=== PATIENT | female | born 1990 | race Caucasian/White ===

== ENCOUNTER 2016-04-20 01:41 | Emergency (ER) | payer BC, OTHER ==
[2016-04-20 02:22] VITALS: BP 104/66; PULSE 61; TEMP 97.3; BMI 22.8
--- NOTE | 2016-04-20 02:40 | PDOC ---
History of Present Illness <Price Carmichael - Last Filed: 04/20/16 02:41> - General History Source: Patient Exam Limitations: No Limitations - History of Present Illness Initial Comments: 04/20/16 02:44 The patient is a 25 year old female with significant past medical history of anemia, asthma, and anxiety (diagnosed 6 months ago) who presents to the ED with worsening anxiety attack prior to arrival. Patient reports having intermittent episodes of anxiety attacks for the past few weeks that worsen just prior to arrival. She states her anxiety attacks occur during meals that consist of chest tightness, SOB and dysphagia. Patient was prescribed diazepam 2mg by PMD and was instructed to take them as needed for her anxiety. She states she stop taking them 3 weeks after she was prescribed because she felt like they were not working. Patient denies any homicidal or suicidal ideation. Patient is currently be accompanied by a friend. The patient denies fever, chills, diaphoresis, and cough. The patient denies abdominal pain, nausea, vomiting, and diarrhea. Allergies: morphine Social History: Denies alcohol, tobacco, or drug use. Family History: serotonin syndrome Past Surgical History: PCP: None reported <Allison Noyola - Last Filed: 04/20/16 02:46> - General Chief Complaint: Psychiatric Stated Complaint: CHEST PAIN Time Seen by Provider: 04/20/16 01:53 Past History - Past Medical History Anemia: Yes Asthma: Yes Cancer: No Cardiac Disorders: No CVA: No COPD: No CHF: No Dementia: No Diabetes: No GI Disorders: No Disorders: No HTN: No Hypercholesterolemia: No Liver Disease: No Psychiatric Problems: Yes (anxeity/DEPRESSION) Suicide Attempt (Hx): No Seizures: No Thyroid Disease: No - Surgical History Abdominal Surgery: Yes (c- section) Appendectomy: No Cardiac Surgery: No Cholecystectomy: No Lung Surgery: No Neurologic Surgery: No Orthopedic Surgery: No - Reproductive History (#): 6 Para: 1 Cervical CA: No Dysfunctional Uterine Bleeding: No Ectopic : No Endometrial CA: No Polycystic Ovaries: No Therapeutic (s) & number: (3) Tubal Ligation: No Spontaneous : 2 - Immunization History Td Vaccination: No Immunization Up to Date: Yes - Psycho/Social/Smoking Cessation Hx Anxiety: Yes Suicidal Ideation: No Smoking Status: No Smoking History: Never smoked Years of Tobacco Use: 2 Have you smoked in the past 12 months: No Number of Cigarettes Smoked Daily: 10 If you are a former smoker, when did you quit?: 2016 Information on smoking cessation initiated: No 'Breaking Loose' booklet given: 01/09/16 Hx Alcohol Use: No Drug/Substance Use Hx: No Substance Use Type: None Hx Substance Use Treatment: No <Price Carmichael - Last Filed: 04/20/16 02:41> <Allison Noyola - Last Filed: 04/20/16 02:46> - Past Medical History Allergies/Adverse Reactions: Allergies Allergy/AdvReac Type Severity Reaction Status Date / Time morphine AdvReac Itching Verified 04/20/16 01:59 Home Medications: Ambulatory Orders Sertraline HCl 25 mg PO DAILY 01/12/16 Review of Systems - Review of Systems Able to Perform ROS?: Yes Comments:: 04/20/16 02:45 CONSTITUTIONAL: Absent: fever, no chills, no fatigue EYES: Absent: visual changes ENT: +dysphagia Absent: ear pain, no sore throat CARDIOVASCULAR: +chest tightness Absent: no palpitations RESPIRATORY: +SOB Absent: cough GI: Absent: abdominal pain, no nausea, no vomiting, no constipation, no diarrhea GENITOURINARY: Absent: dysuria, no frequency, no hematuria MUSKULOSKELETAL: Absent: back pain, no arthralgia, no myalgia SKIN: Absent: rash NEURO: Absent: headache PSYCHIATRIC: +anxiety Absent: depression, suicidal or homicidal ideation, hallucinations. <Allison Noyola - Last Filed: 04/20/16 02:46> *Physical Exam - Vital Signs Last Vital Signs Temp Pulse Resp BP Pulse Ox 97.3 F L 61 20 104/66 100 04/20/16 01:59 04/20/16 01:59 04/20/16 01:59 04/20/16 01:59 04/20/16 01:59 <Price Carmichael - Last Filed: 04/20/16 02:41> - Vital Signs Last Vital Signs Temp Pulse Resp BP Pulse Ox 97.3 F L 61 20 104/66 100 04/20/16 01:59 04/20/16 01:59 04/20/16 01:59 04/20/16 01:59 04/20/16 01:59 - Physical Exam Comments: 04/20/16 02:45 GENERAL: Well-appearing, well-nourished. Mild distress. Pt is tearful. HEENT: Normocephalic, atraumatic. PERRL, EOM intact. CARDIOVASCULAR: Normal S1, S2. Regular rate and rhythm. PULMONARY: Clear to auscultation bilaterally. ABDOMEN: Soft, non-distended, non-tender. EXTREMITIES: Normal ROM in all four extremities. No gross deformities. SKIN: Warm, dry. No rash NEUROLOGICAL: No focal neurological deficits. PSYCHIATRIC: Cooperative. Good eye contact. Appropriate mood and affect. <Allison Noyola - Last Filed: 04/20/16 02:46> Heart Score/ECG Review - ECG Impressions Comment:: 04/20/16 02:45 Sinus bradycardia @57bpm Incomplete RBBB Borderline ECG <Allison Noyola - Last Filed: 04/20/16 02:46> Medical Decision Making - Medical Decision Making 04/20/16 02:37 Dr. Carmichael: The scribe's documentation has been prepared under my direction and personally reviewed by me in its entirery. I confirm that the note above accurately reflects all work, treatment, procedures, and medical decision making performed by me. Patient requesting referral for a therapist for counselling. Pt denies homocidal or suicidal ideation. Currnetly accompanied by friend. Will refer pt to psych <Price Carmichael - Last Filed: 04/20/16 02:41> *DC/Admit/Observation/Transfer - Discharge Dispostion Admit: No <Price Carmichael - Last Filed: 04/20/16 02:41> - Attestations Scribe Attestion: 04/20/16 02:46 Documentation prepared by Allison Noyola, acting as chief medical physicist for Price Carmichael MD <Allison Noyola - Last Filed: 04/20/16 02:46> Diagnosis at time of Disposition: Anxiety attack - Discharge Dispostion Disposition: HOME Condition at time of disposition: Stable - Referrals Referrals: Puneet Alexandre MD [Staff Physician] - - Patient Instructions Printed Discharge Instructions: DI for Anxiety -- Adult Additional Instructions: Please follow up with the doctor you were referred to as soon as possible.
--- NOTE | 2016-04-20 14:58 | EKG ---
Test Reason : Blood Pressure : / mmHG Vent. Rate : 057 BPM Atrial Rate : 057 BPM P-R Int : 134 ms QRS Dur : 108 ms QT Int : 426 ms P-R-T Axes : 055 029 033 degrees QTc Int : 414 ms SINUS BRADYCARDIA INCOMPLETE RIGHT BUNDLE BRANCH BLOCK BORDERLINE ECG WHEN COMPARED WITH ECG OF 09-JAN-2016 15:15, NO SIGNIFICANT CHANGE WAS FOUND Confirmed by CHRIS VALVERDE MD ([id number]) on 04/20/2016 2:58:37 PM Referred By: Confirmed By:CHRIS VALVERDE MD
== END 2016-04-20 03:15 | disposition home or self-care (01) ==
LOC: JER 01:41
DX: F41.0 Panic disorder [episodic paroxysmal anxiety] (principal); J45.909 Unspecified asthma, uncomplicated
CPT/HCPCS: 93005; 93010; 99282-25

== ENCOUNTER → 2016-05-17 | Emergency (ER) | payer BC, OTHER ==
[2016-05-17 22:26] VITALS: BP 99/60; PULSE 69; TEMP 97.7; BMI 24.2
--- NOTE | 2016-05-17 23:17 | PDOC ---
History of Present Illness - History of Present Illness Initial Comments: 05/17/16 23:42 Patient is a 25 year old female (5 weeks) with no significant medical hx who is presenting to the ED with one day of constant suprapubic abdominal pain and vaginal spotting. The patient's abdominal pain is non-radiating and atrauamatic. The patient states her vaginal spotting came and resolved yesterday. Patient came to the ED tonight to make sure everything is okay with her . Denies any fever, chills, nausea, vomiting, or diarrhea. 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 <Anisha Maier - Last Filed: 05/18/16 01:36> <Mikael Foster - Last Filed: 05/18/16 01:42> - General Chief Complaint: Vaginal Bleeding Stated Complaint: VAGINAL BLEEDING/6 WKS Time Seen by Provider: 05/17/16 22:57 Past History <Anisha Maier - Last Filed: 05/18/16 01:36> - Past Medical History Anemia: Yes Asthma: Yes Cancer: No Cardiac Disorders: No CVA: No COPD: No CHF: No Dementia: No Diabetes: No GI Disorders: No Disorders: No HTN: No Hypercholesterolemia: No Liver Disease: No Psychiatric Problems: Yes (anxeity/DEPRESSION) Suicide Attempt (Hx): No Seizures: No Thyroid Disease: No - Surgical History Abdominal Surgery: Yes (c- section) Appendectomy: No Cardiac Surgery: No Cholecystectomy: No Lung Surgery: No Neurologic Surgery: No Orthopedic Surgery: No - Reproductive History (#): 6 Para: 1 Cervical CA: No Dysfunctional Uterine Bleeding: No Ectopic : No Endometrial CA: No Polycystic Ovaries: No Therapeutic (s) & number: (3) Tubal Ligation: No Spontaneous : 2 - Immunization History Td Vaccination: No Immunization Up to Date: Yes - Psycho/Social/Smoking Cessation Hx Anxiety: Yes Suicidal Ideation: No Smoking Status: No Smoking History: Never smoked Years of Tobacco Use: 2 Have you smoked in the past 12 months: No Number of Cigarettes Smoked Daily: 10 If you are a former smoker, when did you quit?: 2016 Information on smoking cessation initiated: No 'Breaking Loose' booklet given: 01/09/16 Hx Alcohol Use: No Drug/Substance Use Hx: No Substance Use Type: None Hx Substance Use Treatment: No <CristianMikael - Last Filed: 05/18/16 01:42> - Past Medical History Allergies/Adverse Reactions: Allergies Allergy/AdvReac Type Severity Reaction Status Date / Time morphine AdvReac Itching Verified 04/20/16 01:59 Home Medications: Ambulatory Orders Sertraline HCl 25 mg PO DAILY 01/12/16 Abd/GI Specific PMHX - Complaint Specific PMHX Colitis: No Diverticulitis: No Gall Bladder Disease: No GERD: No Hepatitis: No Irritable Bowel Synd (IBS): No Pancreatitis: No GI Ulcer Disease: No <Cristian,Mikael - Last Filed: 05/18/16 01:42> Review of Systems - Review of Systems Comments:: 05/17/16 23:42 CONSTITUTIONAL: No fever, no chills, no fatigue EYES: No visual changes ENT: No ear pain, no sore throat CARDIOVASCULAR: No chest pain, no palpitations RESPIRATORY: No cough, no SOB GI: Suprapubic tenderness. No nausea, no vomiting, no constipation, no diarrhea GENITOURINARY: Vaginal spotting. No dysuria, no frequency, no hematuria MUSKULOSKELETAL: No backpain, no joint pain, no myalgias SKIN: No rash NEURO: No headache <Anisha Maier - Last Filed: 05/18/16 01:36> *Physical Exam - Vital Signs Last Vital Signs Temp Pulse Resp BP Pulse Ox 97.7 F 69 18 99/60 100 05/17/16 22:22 05/17/16 22:22 05/17/16 22:22 05/17/16 22:22 05/17/16 22:22 - Physical Exam Comments: 05/17/16 23:43 CONSTITUTIONAL: Well-appearing; well-nourished; in no apparent distress HEAD: Normocephalic; atraumatic EYES: PERRL; EOM intact ENMT: External appears normal; normal oropharynx NECK: Supple; non-tender; no cervical lymphadenopathy CARD: Normal S1, S2; no murmurs, rubs, or gallops RESP: Normal chest excursion with respiration; breath sounds clear and equal bilaterally; no wheezes, rhonchi, or rales ABD: Soft, non-distended; mild suprapubic tenderness; no palpable organomegaly, no palpable hernias EXT: Normal ROM in all four extremities; non-tender to palpation; distal pulses intact SKIN: Warm, dry, no rash NEURO: No focal neurological deficiencies. <Anisha Maier - Last Filed: 05/18/16 01:36> - Vital Signs Last Vital Signs Temp Pulse Resp BP Pulse Ox 97.7 F 69 18 99/60 100 05/17/16 22:22 05/17/16 22:22 05/17/16 22:22 05/17/16 22:22 05/17/16 22:22 <Mikael Foster - Last Filed: 05/18/16 01:42> ED Treatment Course - LABORATORY CBC & Chemistry Diagram: 05/17/16 23:40 - RADIOLOGY Radiograph Interpretation: 05/18/16 01:01 Senior Staff Accountant: [email or web address]) Report Date: 05/18/2016 00:10:00 Report Status: Preliminary Begin of Report Content Referring Physician: Mikael Foster Patient Name: Halina Bailon THIS IS A PRELIMINARY REPORT FROM [facility] IMAGES: 43 EXAM DATE AND TIME: 2016-05-18 00:10:22.0 EXAM: ULTRASOUND PELVIS, COMPLETE AND TRANSVAGINAL ULTRASOUND AND DUPLEX SCAN PELVIS, COMPLETE No ovarian torsion. Color flow with appropriate arterial waveforms bilaterally. 1.7 cm complex corpus luteum right ovary. No free fluid. Small intrauterine probable gestational sac 5 weeks 3 days by measurement with yolk sac but no visible pole. No adnexal masses appreciated. Correlation with beta-hCG levels and followup ultrasound recommended to assess viability of suspected early . Unremarkable visualized portion of bladder. THIS DOCUMENT HAS BEEN ELECTRONICALLY SIGNED Samia Bailey M.D. 05/18/2016 00:58 RADHIKA Patel Please call Imaging Technical Administrative Assistant [phone] ([phone]) with questions. End of Report Content <Anisha Maier - Last Filed: 05/18/16 01:36> - LABORATORY CBC & Chemistry Diagram: 05/17/16 23:40 <Mikael Foster - Last Filed: 05/18/16 01:42> Medical Decision Making - Medical Decision Making 05/18/16 01:39 Patient is a 25-year-old female, 7 para 1, who presents with lower abdominal pain and vaginal spotting 24 hours previously that had resolved previously. In the ER, patient is awake and alert, afebrile, nontoxic appearing. Serial abdominal exams reveal minimal suprapubic tenderness only without guarding rebound. Patient tolerates by mouth. Beta-hCG is noted to be above 8000. Transvaginal ultrasound shows an IUP approximately 5 weeks 3 days gestation. Urinalysis reveals no evidence of pyuria. Patient is Rh+ and no rhogam is indicated at this time. Will discharge with CATERER HELPER follow-up. <Mikael Foster - Last Filed: 05/18/16 01:42> *DC/Admit/Observation/Transfer - Attestations Scribe Attestion: 05/17/16 23:43 Documentation prepared by Anisha Maier, acting as medical appliance maker for Mikael Foster MD. <Anisha Maier - Last Filed: 05/18/16 01:36> - Attestations Physician Attestion: 05/18/16 01:39 The documentation was prepared by the scribe under my direct supervision. I have reviewed the documentation which correctly represents the findings, medical decision-making and critical action taken by me. <Mikael Foster - Last Filed: 05/18/16 01:42> Diagnosis at time of Disposition: Threatened Abdominal pain Qualifiers: Abdominal location: lower abdomen, unspecified Qualified Code(s): R10.30 - Lower abdominal pain, unspecified - Discharge Dispostion Disposition: HOME Condition at time of disposition: Stable - Referrals Referrals: Kusum Moy MD [Primary Care Provider] - Trip Young MD [Staff Physician] - - Patient Instructions Printed Discharge Instructions: DI for Threatened
[2016-05-18 00:01] LABS: URINE APPEARANCE SLCLOUDY; URINE BILIRUBIN NEGATIVE (NEGATIVE); URINE BLOOD NEGATIVE (NEGATIVE); URINE COLOR LTYELLOW; URINE GLUCOSE (UA) NEGATIVE (NEGATIVE); URINE KETONE NEGATIVE (NEGATIVE); URINE LEUK ESTERASE NEGATIVE (NEGATIVE); URINE NITRITE NEGATIVE (NEGATIVE); URINE PROTEIN NEGATIVE (NEGATIVE); URINE UROBILINOGEN 2.0 E.U/dl E.U./dl (0.2-1.0)
[2016-05-18 00:13] LABS: BASOPHIL 0.6 % (0-2.0); EOSINOPHIL 6.5 % (0-4.5); MCH 29.5 pg (25.7-33.7); MCHC 34.1 g/dl (32.0-36.0); MEAN CELL VOLUME 86.6 fl (80-96); MEAN PLT VOLUME 9.5 fl (7.5-11.1); NEUTROPHILS 54.8 % (42.8-82.8); PLATELET COUNT 192 K/MM3 (134-434); RDW 12.8 % (11.6-15.6); WHITE BLOOD COUNT 7.6 K/mm3 (4.0-10.0)
== END | disposition home or self-care (01) ==
LOC: JER 22:10 → SUPCPDRO 22:10
DX: O26.891 Other specified pregnancy related conditions, first trimester (principal); O20.0 Threatened abortion; Z3A.01 Less than 8 weeks gestation of pregnancy; J45.909 Unspecified asthma, uncomplicated; F41.8 Other specified anxiety disorders; D64.9 Anemia, unspecified; Z87.891 Personal history of nicotine dependence
CPT/HCPCS: 36415; 76817-TC; 81003; 84702; 84703; 85025; 86850; 86900; 86901; 87086; 99281-25

== ENCOUNTER 2016-06-14 17:31 | Emergency (ER) | payer BC, OTHER ==
[2016-06-14 17:39] VITALS: BP 113/57; PULSE 62; TEMP 98.1; BMI 24.2
[2016-06-14] MEDS ORDERED: SODIUM CHLORIDE 1,000 ML IV STA (18:32)
--- NOTE | 2016-06-14 18:44 | PDOC ---
History of Present Illness - General History Source: Patient, Old Records Exam Limitations: No Limitations - History of Present Illness Initial Comments: 06/14/16 19:17 The patient is a 25 year old female who is currently 2 months , [id number], with a significant past medical history of anemia, ovarian cysts, asthma, anxiety and depression, who presents to the emergency department with vaginal bleeding, nausea and vomit onset today. She has not taken vitamins because they make her nauseous. She states that she has only had a couple of episodes of vomit that were nonbilious and nonbloody. The patient was in the ED on 05/17/2016 for vaginal spotting and abdominal cramping. An ultrasound was performed which showed; Small intrauterine probable gestational sac 5 weeks 3 days by measurement with yolk sac but no visible pole. No adnexal masses appreciated. She was discharged same day and referred to follow up with a MEDICAL MANAGER. The patient denies chest pain, shortness of breath, headache and dizziness. Denies fever, chills, diarrhea and constipation. Denies dysuria, frequency, urgency and hematuria. LMP: 04/12/2016 (not regular) Allergies: Morphine Past surgical history: Social history: No alcohol, tobacco or drug use reported PMD - Dr. Seth Moy MEDICAL MANAGER - Dr. Young <Price Pittman - Last Filed: 06/14/16 20:54> - General History Source: Patient Exam Limitations: No Limitations <Vimal Marlow - Last Filed: 06/14/16 21:31> - General Chief Complaint: Vaginal Sxs Stated Complaint: VAGINAL BLEEDING Time Seen by Provider: 06/14/16 18:18 Past History <Price Pittman - Last Filed: 06/14/16 20:54> - Past Medical History Anemia: Yes Asthma: Yes Cancer: No Cardiac Disorders: No CVA: No COPD: No CHF: No Dementia: No Diabetes: No GI Disorders: No Disorders: No HTN: No Hypercholesterolemia: No Liver Disease: No Psychiatric Problems: Yes (anxeity/DEPRESSION) Suicide Attempt (Hx): No Seizures: No Thyroid Disease: No - Surgical History Abdominal Surgery: Yes (c- section) Appendectomy: No Cardiac Surgery: No Cholecystectomy: No Lung Surgery: No Neurologic Surgery: No Orthopedic Surgery: No - Reproductive History Is Patient Now?: Yes (#): 6 Para: 1 Cervical CA: No Dysfunctional Uterine Bleeding: No Ectopic : No Endometrial CA: No Polycystic Ovaries: No Therapeutic (s) & number: Yes (2) Tubal Ligation: No Spontaneous : 2 - Immunization History Td Vaccination: No Immunization Up to Date: Yes - Psycho/Social/Smoking Cessation Hx Anxiety: Yes Suicidal Ideation: No Smoking Status: No Smoking History: Never smoked Years of Tobacco Use: 2 Have you smoked in the past 12 months: No Number of Cigarettes Smoked Daily: 10 If you are a former smoker, when did you quit?: 2016 Information on smoking cessation initiated: No 'Breaking Loose' booklet given: 01/09/16 Hx Alcohol Use: No Drug/Substance Use Hx: No Substance Use Type: None Hx Substance Use Treatment: No <Vimal Marlow - Last Filed: 06/14/16 21:31> - Past Medical History Allergies/Adverse Reactions: Allergies Allergy/AdvReac Type Severity Reaction Status Date / Time morphine AdvReac Itching Verified 06/14/16 17:38 Home Medications: Ambulatory Orders NK [No Known Home Medication] 06/14/16 Review of Systems - Review of Systems Able to Perform ROS?: Yes Comments:: 06/14/16 19:17 GENERAL/CONSTITUTIONAL: No fever or chills. No weakness. HEAD, EYES, EARS, NOSE AND THROAT: No change in vision. No ear pain or discharge. No sore throat. CARDIOVASCULAR: No chest pain or shortness of breath RESPIRATORY: No cough, wheezing, or hemoptysis. GASTROINTESTINAL: +Nausea and vomiting. No diarrhea or constipation. GENITOURINARY: +Vaginal bleeding. No dysuria, frequency, or change in urination. MUSCULOSKELETAL: No joint or muscle swelling or pain. No neck or back pain. SKIN: No rash NEUROLOGIC: No headache, vertigo, loss of consciousness, or change in strength/ sensation. ENDOCRINE: No increased thirst. No abnormal weight change HEMATOLOGIC/LYMPHATIC: No anemia, easy bleeding, or history of blood clots. ALLERGIC/IMMUNOLOGIC: No hives or skin allergy. <Price Pittman - Last Filed: 06/14/16 20:54> *Physical Exam - Vital Signs Last Vital Signs Temp Pulse Resp BP Pulse Ox 98.1 F 62 19 113/57 100 06/14/16 17:37 06/14/16 17:37 06/14/16 17:37 06/14/16 17:37 06/14/16 17:37 - Physical Exam Comments: 06/14/16 19:17 GENERAL: Awake, alert, and fully oriented, in no acute distress HEAD: No signs of trauma, normocephalic, atraumatic EYES: PERRLA, EOMI, sclera anicteric, conjunctiva clear ENT: Auricles normal inspection, hearing grossly normal, nares patent, oropharynx clear without exudates. Moist mucosa NECK: Normal ROM, supple, no lymphadenopathy, JVD, or masses LUNGS: No distress, speaks full sentences, clear to auscultation bilaterally HEART: Regular rate and rhythm, normal S1 and S2, no murmurs, rubs or gallops, peripheral pulses normal and equal bilaterally. ABDOMEN: +Suprapubic tenderness. Soft, normoactive bowel sounds. No guarding, no rebound. No masses EXTREMITIES: Normal inspection, Normal range of motion, no edema. No clubbing or cyanosis. NEUROLOGICAL: Cranial nerves II through XII grossly intact. Normal speech, normal gait, no focal sensorimotor deficits SKIN: Warm, Dry, normal turgor, no rashes or lesions noted. <Price Pittman - Last Filed: 06/14/16 20:54> - Vital Signs Last Vital Signs Temp Pulse Resp BP Pulse Ox 98.1 F 62 19 113/57 100 06/14/16 17:37 06/14/16 17:37 06/14/16 17:37 06/14/16 17:37 06/14/16 17:37 <Vimal Marlow - Last Filed: 06/14/16 21:31> ED Treatment Course - LABORATORY CBC & Chemistry Diagram: 06/14/16 18:45 - ADDITIONAL ORDERS Additional order review: 06/14/16 18:45 RBC 4.03 MCV 84.4 MCHC 35.3 RDW 12.3 MPV 9.2 Neutrophils % 58.0 Lymphocytes % 23.9 D Monocytes % 9.6 Eosinophils % 8.1 H Basophils % 0.4 - RADIOLOGY Radiograph Interpretation: 06/14/16 20:54 Abdominal ultrasound Reviewed by: Dr. Nikunj Patel Impression: Single live intrauterine gestation with crown rump length corresponding to 9 weeks and 2 days gestation commensurate with given LMP. <Price Pittman - Last Filed: 06/14/16 20:54> - LABORATORY CBC & Chemistry Diagram: 06/14/16 18:45 - RADIOLOGY Radiology Studies Ordered: Category Date Time Status TRANSVAGINAL US PREG [US] Stat Ultrasound 06/14/16 18:33 Ordered <EleVimal - Last Filed: 06/14/16 21:31> Medical Decision Making - Medical Decision Making 06/14/16 18:44 A portion of this note was documented by scribe services under my direction. I have reviewed the details of the note, within reason, and agree with the documentation with the following case summary and management plan written by me. Patient treated in the ED. Nursing notes are reviewed and incorporated into the medical decision-making. Vital signs reviewed. Peripheral IV access obtained by the nurse, laboratory studies are drawn and sent, reviewed and interpreted by myself. Vital Signs Temp Pulse Resp BP Pulse Ox 98.1 F 62 19 113/57 100 06/14/16 17:37 06/14/16 17:37 06/14/16 17:37 06/14/16 17:37 06/14/16 17:37 45-year-old female no medical history, , last menstrual period April 10, approximately 8 weeks presents with vaginal spotting today. She reports some suprapubic cramping with vaginal spotting but denies any blood clots. Reports some nausea but denies vomiting. Patient came in for evaluation. She has not had a prior ultrasound. We'll rule out first trimester vaginal bleeding. Rule out ectopic versus threatened miscarriage. We'll obtain labs, transvaginal ultrasound, type and screen, beta hCG. Patient defer on oral meds and requests no medications at this time. 06/14/16 21:05 CBC, BMP 06/14/16 18:45 CMP Beta HCG, Quant 657293.9 mIU/ml 06/14/16 18:45 Urine Test Results Urine Color Ltyellow 06/14/16 18:45 Urine Appearance Clear 06/14/16 18:45 Urine pH 6.0 (5.0-8.0) 06/14/16 18:45 Ur Specific [place] 1.021 (1.001-1.035) 06/14/16 18:45 Urine Protein Negative (NEGATIVE) 06/14/16 18:45 Urine Glucose (UA) Negative (NEGATIVE) 06/14/16 18:45 Urine Ketones Negative (NEGATIVE) 06/14/16 18:45 Urine Blood 1+ (NEGATIVE) H 06/14/16 18:45 Urine Nitrite Negative (NEGATIVE) 06/14/16 18:45 Urine Bilirubin Negative (NEGATIVE) 06/14/16 18:45 Ur Leukocyte Esterase Negative (NEGATIVE) 06/14/16 18:45 Urine RBC 5 /hpf (0-3) 06/14/16 18:45 Urine WBC 1 /hpf (3-5) 06/14/16 18:45 Ur Epithelial Cells Rare /hpf (FEW) 06/14/16 18:45 Urine Mucus Rare 06/14/16 18:45 Transvaginal ultrasound shows single IUP with 9 weeks and 2 days with FHR is 188 bpm. 06/14/16 21:25 Blood Type, Rh (Baby) Blood Type A POSITIVE 06/14/16 18:45 Pelvic rest precautions. Threatened . I discussed the physical exam findings, ancillary test results and final diagnoses with the patient. I answered all of the patient's questions. The patient was satisfied with the care received and felt comfortable with the discharge plan and treatment plan. The patient will call their primary care physician within 24 hours to arrange follow-up and will return to the Emergency Department with any new, persistant or worsening symptoms. <Vimal Marlow - Last Filed: 06/14/16 21:31> *DC/Admit/Observation/Transfer - Attestations Scribe Attestion: 06/14/16 19:18 Documentation prepared by Price Pittman, acting as general medical practitioner for Vimal Marlow MD <Price Pittman - Last Filed: 06/14/16 20:54> - Discharge Dispostion Admit: No <Vimal Marlow - Last Filed: 06/14/16 21:31> Diagnosis at time of Disposition: Threatened - Discharge Dispostion Disposition: HOME Condition at time of disposition: Stable - Referrals Referrals: Kusum Moy MD [Primary Care Provider] - - Patient Instructions Printed Discharge Instructions: DI for Threatened Additional Instructions: Please follow up with your appointment scheduler doctor. If you have uncontrollable bleeding, please return to the ER for further evaluatin.
[2016-06-14 19:08] LABS: BASOPHIL 0.4 % (0-2.0); EOSINOPHIL 8.1 % (0-4.5); MCH 29.8 pg (25.7-33.7); MCHC 35.3 g/dl (32.0-36.0); MEAN CELL VOLUME 84.4 fl (80-96); MEAN PLT VOLUME 9.2 fl (7.5-11.1); PLATELET COUNT 191 K/MM3 (134-434); RDW 12.3 % (11.6-15.6); WHITE BLOOD COUNT 6.1 K/mm3 (4.0-10.0)
[2016-06-14 19:15] LABS: URINE APPEARANCE CLEAR; URINE BILIRUBIN NEGATIVE (NEGATIVE); URINE COLOR LTYELLOW; URINE GLUCOSE (UA) NEGATIVE (NEGATIVE); URINE KETONE NEGATIVE (NEGATIVE); URINE LEUK ESTERASE NEGATIVE (NEGATIVE); URINE NITRITE NEGATIVE (NEGATIVE); URINE PROTEIN NEGATIVE (NEGATIVE); URINE UROBILINOGEN NEGATIVE E.U./dl (0.2-1.0)
[2016-06-14 19:18] LABS: URINE BLOOD 1+ (NEGATIVE)
[2016-06-14 19:19] LABS: URINE MUCUS RARE; URINE RBC 5 /hpf (0-3); URINE WBC 1 /hpf (3-5)
== END 2016-06-14 21:38 | disposition home or self-care (01) ==
LOC: JER 17:31
PROC: 3E0337Z Introduction of Electrolytic and Water Balance Substance into Peripheral Vein, Percutaneous Approach (ICD-10-PCS; principal; 2016-06-14)
DX: O20.0 Threatened abortion (principal); Z3A.09 9 weeks gestation of pregnancy
CPT/HCPCS: 36415; 76801-TC; 81003; 81015; 84702; 85025; 86850; 86900; 86901; 87086; 99282-25

== ENCOUNTER 2016-07-10 12:00 | Emergency (ER) | payer BC, OTHER ==
[2016-07-10 12:10] VITALS: BP 110/67; PULSE 71; TEMP 97.9; BMI 25.4
--- NOTE | 2016-07-10 14:41 | PDOC ---
History of Present Illness - History of Present Illness Initial Comments: 07/10/16 14:48 Patient is a 26 year old female (13 weeks) with significant medical hx of anemia, asthma and anxiety who is presenting to the ED with onset of chest pain and abdominal pain since today. Patient reports she was sitting in class when she had a sudden onset of chest pain with some mild shortness of breath. She also began having epigastric pain. The patient notes that her pain is similar to gas pain shes had in the past but states that her pain was so severe it was uncomfortable for her to sit in class. The patient also endorses some left calf cramping. Denies any fevers, chills, nausea, vomiting, taking oral contraceptives, or hx of blood clots. <Anisha Maier - Last Filed: 07/10/16 14:47> - General History Source: Patient Exam Limitations: No Limitations - History of Present Illness Timing/Duration: unsure <Kanwal Steve - Last Filed: 07/10/16 14:56> - General Chief Complaint: Pain Stated Complaint: CHEST PAIN, 13 WKS Past History <Anisha Maier - Last Filed: 07/10/16 14:47> - Past Medical History Anemia: Yes Asthma: Yes Cancer: No Cardiac Disorders: No CVA: No COPD: No CHF: No Dementia: No Diabetes: No GI Disorders: No Disorders: No HTN: No Hypercholesterolemia: No Liver Disease: No Psychiatric Problems: Yes (anxeity/DEPRESSION) Suicide Attempt (Hx): No Seizures: No Thyroid Disease: No - Surgical History Abdominal Surgery: Yes (c- section) Appendectomy: No Cardiac Surgery: No Cholecystectomy: No Lung Surgery: No Neurologic Surgery: No Orthopedic Surgery: No - Reproductive History (#): 6 Para: 1 Cervical CA: No Dysfunctional Uterine Bleeding: No Ectopic : No Endometrial CA: No Polycystic Ovaries: No Therapeutic (s) & number: Yes (2) Tubal Ligation: No Spontaneous : 2 - Immunization History Td Vaccination: No Immunization Up to Date: Yes - Psycho/Social/Smoking Cessation Hx Anxiety: Yes Suicidal Ideation: No Smoking Status: No Smoking History: Never smoked Years of Tobacco Use: 2 Have you smoked in the past 12 months: No Number of Cigarettes Smoked Daily: 10 If you are a former smoker, when did you quit?: 2016 'Breaking Loose' booklet given: 01/09/16 Hx Alcohol Use: No Drug/Substance Use Hx: No Substance Use Type: None Hx Substance Use Treatment: No <Kanwal Steve - Last Filed: 07/10/16 14:56> - Past Medical History Allergies/Adverse Reactions: Allergies Allergy/AdvReac Type Severity Reaction Status Date / Time morphine AdvReac Itching Verified 07/10/16 12:10 Home Medications: Ambulatory Orders NK [No Known Home Medication] 06/14/16 Review of Systems - Review of Systems Comments:: 07/10/16 14:48 GENERAL/CONSTITUTIONAL: No fever or chills. No weakness. HEAD, EYES, EARS, NOSE AND THROAT: No change in vision. No ear pain or discharge. No sore throat. CARDIOVASCULAR: Chest pain with mild shortness of breath. RESPIRATORY: No cough, wheezing, or hemoptysis. GASTROINTESTINAL: Epigastric pain. No nausea, vomiting, diarrhea or constipation. GENITOURINARY: No dysuria, frequency, or change in urination. MUSCULOSKELETAL: Left calf cramping. No joint or muscle swelling. No neck or back pain. ENDOCRINE: No increased thirst. No abnormal weight change. SKIN: No rash NEUROLOGIC: No headache, vertigo, loss of consciousness, or change in strength/ sensation. <Anisha Maier - Last Filed: 07/10/16 14:47> *Physical Exam - Vital Signs Last Vital Signs Temp Pulse Resp BP Pulse Ox 97.9 F 71 18 110/67 99 07/10/16 12:08 07/10/16 12:08 07/10/16 12:08 07/10/16 12:08 07/10/16 12:08 - Physical Exam Comments: 07/10/16 14:49 GENERAL: Awake, alert, and fully oriented, in no acute distress HEAD: No signs of trauma EYES: PERRLA, EOMI, sclera anicteric, conjunctiva clear ENT: Auricles normal inspection, hearing grossly normal, nares patent, oropharynx clear without exudates. Moist mucosa NECK: Normal ROM, supple, no lymphadenopathy, JVD, or masses LUNGS: Breath sounds equal, clear to auscultation bilaterally. No wheezes, and no crackles HEART: Chest wall tenderness. Regular rate and rhythm, normal S1 and S2, no murmurs, rubs or gallops ABDOMEN: Soft, nontender, normoactive bowel sounds. No guarding, no rebound. No masses EXTREMITIES: Normal range of motion, no edema. No clubbing or cyanosis. No cords, erythema, or tenderness NEUROLOGICAL: Cranial nerves II through XII grossly intact. Normal speech, normal gait SKIN: Warm, Dry, normal turgor, no rashes or lesions noted. HEMATOLOGIC/LYMPHATIC: No anemia, easy bleeding, or history of blood clots. ALLERGIC/IMMUNOLOGIC: No hives or skin allergy. <Anisha Maier - Last Filed: 07/10/16 14:47> - Vital Signs Last Vital Signs Temp Pulse Resp BP Pulse Ox 97.9 F 71 18 110/67 99 07/10/16 12:08 07/10/16 12:08 07/10/16 12:08 07/10/16 12:08 07/10/16 12:08 <Kanwal Steve - Last Filed: 07/10/16 14:56> Heart Score/ECG Review - ECG Intrepretation Rhythm: Regular Rhythm Comment:: 07/10/16 14:55 rate 62 bpm, TWi v2, V3 - [place]: Normal - ST and T Flattened T Waves: No Prolonged Q-T Interval: No - ECG Impressions Normal ECG: Yes <Kanwal Steve - Last Filed: 07/10/16 14:56> Medical Decision Making - Medical Decision Making 07/10/16 14:37 26 yo F currently at 13 weeks here with c/o epigastric pain . feels burning , into chest. mild sob. no leg swelling. no h/o dvt or pe. no f/c pt currently eating crackers and feels mildly improved. no urinary complaints. no vaginal bleeding no loss of fluid. no other complaints. on exam awake alert, lungs clear. chest wall ttp, reproducible. heart RRR no m/r /g abd soft nt nd. ext no edema. dDgx: GERD, gastritis, sxs of . PE less likley. plan us lower exst, transabdominal us. labs. 07/10/16 14:42 pt states she can't wait to have blood work drawn or ultrasound, felix come back later has to leave. <Kanwal Steve - Last Filed: 07/10/16 14:56> *DC/Admit/Observation/Transfer - Attestations Scribe Attestion: 07/10/16 14:52 Documentation prepared by Anisha Maier, acting as senior medical director for Kanwal Steve MD. <Anisha Maier - Last Filed: 07/10/16 14:47> - Discharge Dispostion Admit: No <Kanwal Steve - Last Filed: 07/10/16 14:56> Diagnosis at time of Disposition: Chest pain - Discharge Dispostion Disposition: HOME - Patient Instructions Printed Discharge Instructions: Medications and Additional Instructions: you should return for persistant instructions. folow up with your obsteterician.
[2016-07-10 15:12] LABS: URINE APPEARANCE SLCLOUDY; URINE BILIRUBIN NEGATIVE (NEGATIVE); URINE BLOOD NEGATIVE (NEGATIVE); URINE COLOR LTYELLOW; URINE GLUCOSE (UA) NEGATIVE (NEGATIVE); URINE KETONE NEGATIVE (NEGATIVE); URINE LEUK ESTERASE NEGATIVE (NEGATIVE); URINE NITRITE NEGATIVE (NEGATIVE); URINE PROTEIN NEGATIVE (NEGATIVE); URINE UROBILINOGEN NEGATIVE E.U./dl (0.2-1.0)
--- NOTE | 2016-07-11 17:13 | EKG ---
Test Reason : Blood Pressure : / mmHG Vent. Rate : 062 BPM Atrial Rate : 062 BPM P-R Int : 114 ms QRS Dur : 092 ms QT Int : 412 ms P-R-T Axes : 054 046 003 degrees QTc Int : 418 ms NORMAL SINUS RHYTHM ABNORMAL ECG WHEN COMPARED WITH ECG OF 20-APR-2016 02:04, NO SIGNIFICANT CHANGE WAS FOUND Confirmed by JENNA CARY MD ([id number]) on 07/11/2016 5:13:41 PM Referred By: Confirmed By:JENNA CARY MD
== END 2016-07-10 14:58 | disposition home or self-care (01) ==
LOC: JER 12:00
DX: O99.89 Other specified diseases and conditions complicating pregnancy, childbirth and the puerperium (principal); R07.89 Other chest pain; F41.8 Other specified anxiety disorders; D64.9 Anemia, unspecified; J45.909 Unspecified asthma, uncomplicated; Z3A.13 13 weeks gestation of pregnancy
CPT/HCPCS: 81003; 93005; 93010; 99282-25

== ENCOUNTER 2016-07-31 18:35 | Emergency (ER) | payer BC, OTHER ==
[2016-07-31 18:42] VITALS: BP 111/66; PULSE 60; TEMP 97.9; BMI 22.2
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
[2016-07-31 19:04] LABS: URINE APPEARANCE CLEAR; URINE BILIRUBIN NEGATIVE (NEGATIVE); URINE BLOOD NEGATIVE (NEGATIVE); URINE COLOR STRAW; URINE GLUCOSE (UA) NEGATIVE (NEGATIVE); URINE KETONE NEGATIVE (NEGATIVE); URINE LEUK ESTERASE NEGATIVE (NEGATIVE); URINE NITRITE NEGATIVE (NEGATIVE); URINE PROTEIN NEGATIVE (NEGATIVE); URINE UROBILINOGEN NEGATIVE E.U./dl (0.2-1.0)
[2016-07-31] MEDS ORDERED: ACETAMINOPHEN 325 MG TABLET (FP) PO ONE (19:54)
[2016-07-31] MEDS ORDERED: ACETAMINOPHEN 325 MG TABLET (FP) ONE (20:01)
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
== END 2016-07-31 23:05 | disposition home or self-care (01) ==
LOC: JER 18:35
DX: O99.89 Other specified diseases and conditions complicating pregnancy, childbirth and the puerperium (principal); M54.5 Low back pain; R10.30 Lower abdominal pain, unspecified; K64.4 Residual hemorrhoidal skin tags; Z3A.16 16 weeks gestation of pregnancy; V43.62XA Car passenger injured in collision with other type car in traffic accident, initial encounter; Y92.414 Local residential or business street as the place of occurrence of the external cause; Y93.89 Activity, other specified
CPT/HCPCS: 76816-TC; 81003; 82272; 99281-25

== ENCOUNTER 2016-12-04 14:54 | Emergency (ER) | payer BC, OTHER ==
[2016-12-04 15:10] VITALS: BP 100/67; PULSE 79; TEMP 98.2; BMI 25.7
--- NOTE | 2016-12-04 15:42 | PDOC ---
History of Present Illness - General Chief Complaint: Toothache Stated Complaint: TOOTHACHE (34 WKS ) Time Seen by Provider: 12/04/16 15:20 History Source: Patient - History of Present Illness Timing/Duration: other (yesterday) Past History - Past Medical History Allergies/Adverse Reactions: Allergies Allergy/AdvReac Type Severity Reaction Status Date / Time morphine AdvReac Itching Verified 12/04/16 15:11 Home Medications: Ambulatory Orders NK [No Known Home Medication] 06/14/16 Anemia: Yes Asthma: Yes Cancer: No Cardiac Disorders: No CVA: No COPD: No CHF: No Dementia: No Diabetes: No GI Disorders: No Disorders: No HTN: No Hypercholesterolemia: No Liver Disease: No Psychiatric Problems: Yes (anxeity) Seizures: No Thyroid Disease: No - Surgical History Abdominal Surgery: Yes (c- section) Appendectomy: No Cardiac Surgery: No Cholecystectomy: No Lung Surgery: No Neurologic Surgery: No Orthopedic Surgery: No - Reproductive History (#): 6 Para: 1 Cervical CA: No Dysfunctional Uterine Bleeding: No Ectopic : No Endometrial CA: No Polycystic Ovaries: No Therapeutic (s) & number: Yes (2) Tubal Ligation: No Spontaneous : 2 - Immunization History Td Vaccination: No Immunization Up to Date: Yes - Suicide/Smoking/Psychosocial Hx Smoking Status: No Smoking History: Never smoked Years of Tobacco Use: 2 Have you smoked in the past 12 months: No Number of Cigarettes Smoked Daily: 10 If you are a former smoker, when did you quit?: 2016 Information on smoking cessation initiated: No 'Breaking Loose' booklet given: 01/09/16 Hx Alcohol Use: No Drug/Substance Use Hx: No Substance Use Type: None Hx Substance Use Treatment: No Review of Systems - Review of Systems Constitutional: No: Chills, Fever HEENTM: Yes: Mouth Pain *Physical Exam - Vital Signs Last Vital Signs Temp Pulse Resp BP Pulse Ox 98.2 F 79 18 100/67 100 12/04/16 15:07 12/04/16 15:07 12/04/16 15:07 12/04/16 15:07 12/04/16 15:07 - Physical Exam General Appearance: Yes: Appropriately Dressed, Moderate Distress HEENT: positive: Normal Voice, TMs Normal, Other (no erythema, swelling or ttp to L upper 3rd molar, no facial swelling) Neck: positive: Supple. negative: Lymphadenopathy (R), Lymphadenopathy (L) Respiratory/Chest: negative: Respiratory Distress Integumentary: positive: Dry, Warm Neurologic: positive: Fully Oriented, Alert, Normal Mood/Affect Medical Decision Making - Medical Decision Making 12/04/16 15:40 26 yo F, 34 week w/ no issues w/ so far, here dental pain to left upper wisdom tooth that started yesterday. Denies any trauma. Last seen by dentist was ~6 months ago and dx w/ "gingivitis" 2/2 per pt. Was told to f/u in another 6 months. No facial pain, swelling, fever or chills. See exam Dental pain in 3rd trimester Stable w/ no e/o infection or abscess on exam -will discuss choice of pain control with ED attg until pt can see her dentist tomorrow -will hold off on abx for now 12/04/16 15:52 As per discussion with main ED attg, Dr De Leon, bupivacaine at this stage of should be relatively safe. Dental block performed administering 2-3 mL of bupivacaine to dental groove of L upper wisdom tooth. Will reassess 12/04/16 16:04 Pt reports feeling significantly better at this time. Will dc to f/u with dental in the am *DC/Admit/Observation/Transfer Diagnosis at time of Disposition: Pain, dental - Discharge Dispostion Disposition: HOME Condition at time of disposition: Improved - Referrals Referrals: Juan Moy MD [Primary Care Provider] - - Patient Instructions Printed Discharge Instructions: DI for Dental Pain Additional Instructions: Please follow up with your dentist tomorrow for further evaluation - Post Discharge Activity
== END 2016-12-04 16:19 | disposition home or self-care (01) ==
LOC: JERFT 14:54 → SUPCPDRO 14:54 → JERFT 16:19
DX: K08.89 Other specified disorders of teeth and supporting structures (principal); O26.893 Other specified pregnancy related conditions, third trimester; Z3A.34 34 weeks gestation of pregnancy; F41.9 Anxiety disorder, unspecified; J45.909 Unspecified asthma, uncomplicated
CPT/HCPCS: 99281-25

== ENCOUNTER 2017-01-14 07:15 | Inpatient (IN) | payer OTHER ==
--- NOTE | 2017-01-14 07:45 | PDOC ---
History of Present Illness - History of Present Illness Initial Comments: 01/14/17 07:52 The patient is a 26 year old female, , with no significant past medical history, who presents to the emergency department with increased cough with new onset of hemoptysis, chills, and pleuritic mid to upper back pain s/p on 01/08/17. The patient reports having a cough for about a month, and diagnosed with pneumonia when she was in the hospital. She reports being started on Augmentin on 01/11/[address] Vanessa. She states that after her a week ago she observed her sputum transition from green to yellow with specks of blood. She reports pleuritic pain to her mid to upper back, exacerbated by coughing. She reports the pain in her back is predominantly to the left side. She also reports having chills. She denies chest pain, shortness of breath, headache and dizziness. She denies fever, nausea, vomit, diarrhea and constipation. She denies dysuria, frequency, urgency and hematuria. Allergies: morphine Past surgical history: x2 Social history: Pt denies toxic habits PCP - Dr. Ada Moy Field Crew Chief - Dr. Vanessa <Maggi Rodriguez - Last Filed: 01/14/17 10:17> - General History Source: Patient, Family Exam Limitations: No Limitations <Vimal Marlow - Last Filed: 01/14/17 10:38> - General Chief Complaint: Respiratory Stated Complaint: PAIN Time Seen by Provider: 01/14/17 07:27 Past History <Maggi Rodriguez - Last Filed: 01/14/17 10:17> - Past Medical History Anemia: Yes Asthma: No Cancer: No Cardiac Disorders: No CVA: No COPD: No CHF: No Dementia: No Diabetes: No GI Disorders: No Disorders: No HTN: No Hypercholesterolemia: No Liver Disease: No Psychiatric Problems: Yes (anxeity) Seizures: No Thyroid Disease: No - Surgical History Abdominal Surgery: No Appendectomy: No Cardiac Surgery: No Cholecystectomy: No Lung Surgery: No Neurologic Surgery: No Orthopedic Surgery: No - Reproductive History (#): 6 Para: 1 Cervical CA: No Dysfunctional Uterine Bleeding: No Ectopic : No Endometrial CA: No Polycystic Ovaries: No Therapeutic (s) & number: Yes (2) Tubal Ligation: No Spontaneous : 2 - Immunization History Td Vaccination: No Immunization Up to Date: Yes - Suicide/Smoking/Psychosocial Hx Smoking Status: No Smoking History: Never smoked Years of Tobacco Use: 2 Have you smoked in the past 12 months: No Number of Cigarettes Smoked Daily: 10 If you are a former smoker, when did you quit?: 2016 'Breaking Loose' booklet given: 01/09/16 Hx Alcohol Use: No Drug/Substance Use Hx: No Substance Use Type: None Hx Substance Use Treatment: No <Vimal Marlow - Last Filed: 01/14/17 10:38> - Past Medical History Allergies/Adverse Reactions: Allergies Allergy/AdvReac Type Severity Reaction Status Date / Time morphine AdvReac Hives Verified 01/14/17 07:21 Home Medications: Ambulatory Orders Albuterol Sulfate Inhaler - [Ventolin HFA Inhaler -] 1 puff IH Q4H PRN #1 inhaler 01/11/17 Amox-Tr/K Cl [Augmentin - 500Mg Tablet] 1 tab PO BID #10 tab 01/11/17 Ibuprofen [Motrin -] 600 mg PO QID #28 tablet 01/12/17 Oxycodone HCl/Acetaminophen [Percocet 5-325 mg Tablet] 1 tab PO Q6H #20 tablet MDD 4 01/12/17 Review of Systems - Review of Systems Able to Perform ROS?: Yes Comments:: 01/14/17 07:53 GENERAL/CONSTITUTIONAL: (+) chills. No fever. No weakness. HEAD, EYES, EARS, NOSE AND THROAT: No change in vision. No ear pain or discharge. No sore throat. CARDIOVASCULAR: No chest pain or shortness of breath. RESPIRATORY: (+)cough, hemoptysis, pleuritic left back pain. No wheezing, GASTROINTESTINAL: No nausea, vomiting, diarrhea or constipation. GENITOURINARY: No dysuria, frequency, or change in urination. MUSCULOSKELETAL: (+) left mid to upper back pain. No joint pain or swelling. No muscle swelling. No neck. SKIN: No rash NEUROLOGIC: No headache, vertigo, loss of consciousness, or change in strength/ sensation. ENDOCRINE: No increased thirst. No abnormal weight change. HEMATOLOGIC/LYMPHATIC: No anemia, easy bleeding, or history of blood clots. ALLERGIC/IMMUNOLOGIC: No hives or skin allergy. <Maggi Rodriguez - Last Filed: 01/14/17 10:17> *Physical Exam - Vital Signs Last Vital Signs Temp Pulse Resp BP Pulse Ox 97.6 F 57 L 20 148/67 98 01/14/17 07:16 01/14/17 07:16 01/14/17 07:16 01/14/17 07:16 01/14/17 07:16 - Physical Exam Comments: 01/14/17 07:56 GENERAL: Awake, alert, and fully oriented, in no acute distress HEAD: No signs of trauma EYES: PERRLA, EOMI, sclera anicteric, conjunctiva clear ENT: Auricles normal inspection, hearing grossly normal, nares patent, oropharynx clear without exudates. Moist mucosa NECK: Normal ROM, supple, no lymphadenopathy, JVD, or masses LUNGS: Breath sounds equal, clear to auscultation bilaterally. No wheezes, and no crackles HEART: Regular rate and rhythm, normal S1 and S2, no murmurs, rubs or gallops ABDOMEN: Soft, nontender, normoactive bowel sounds. No guarding, no rebound. No masses EXTREMITIES: Normal range of motion, no edema. No clubbing or cyanosis. No cords, erythema, or tenderness NEUROLOGICAL: Cranial nerves II-XII intact. Normal speech, normal gait. Sensation intact in upper and lower extremities. 5/5 motor strength in upper and lower extremities. No pronator drift. Finger to nose intact. Rapid alternations intact. SKIN: (+) scar is clean, dry, intact without erythema, increased warmth or drainage. Warm, Dry, normal turgor, no rashes or lesions noted. <Maggi Rodriguez - Last Filed: 01/14/17 10:17> - Vital Signs Last Vital Signs Temp Pulse Resp BP Pulse Ox 97.6 F 57 L 20 148/67 98 01/14/17 07:16 01/14/17 07:16 01/14/17 07:16 01/14/17 07:16 01/14/17 07:16 <Vimal Marlow - Last Filed: 01/14/17 10:38> Heart Score/ECG Review #1 ECG reviewed & interpreted by me at: 07:50 01/14/17 08:16 NSR 50, TWI III, TWI V1-V3, no std/deshawn, normal axis, normal intervals, QTC 406 msec <Vimal Marlow - Last Filed: 01/14/17 10:38> ED Treatment Course - LABORATORY CBC & Chemistry Diagram: 01/14/17 07:44 01/14/17 07:44 - RADIOLOGY Radiograph Interpretation: EXAM#: TYPE/EXAM: RESULT: [id number] RAD/CHEST PA LAT Chest: Cough for one month Since the prior study of 01/10/2017, there is still some fluid and possibly atelectasis at the left base. Again noted is the large heart with unfolded aorta. The right lung is clear. Impression // persistent left base changes. Reported By: Nils Gutierrez MD 01/14/17 0828 EXAM#: TYPE/EXAM: RESULT: [id number] CT/CHEST CTA Recent delivery. Chest pain. Rule out PE. CT scan of the chest following intravenous contrast. A post intravenous contrast CT angiogram of the chest was performed utilizing pulmonary embolus protocol. Coronal/ sagittal reconstruction images were obtained. 82 cc of Omnipaque 350 was intravenously injected No gross filling defect is seen within the main pulmonary artery and its proximal branches. The thoracic and visualized portion of the upper abdominal aorta is only faintly enhanced without evidence of aneurysmal dilatation or dissection. The heart is within normal limits in size. No gross mediastinal or hilar enlarged lymph nodes are identified. There is subsegmental atelectasis in the left lung base with a small left pleural effusion. No pneumothorax is identified. Included portion of the upper abdomen appears unremarkable with heterogeneous enhancement of the spleen likely due to rapid intravenous contrast injection. Visualized osseous structures appear intact IMPRESSION: There is no evidence of a pulmonary embolus within the main pulmonary artery and its proximal branches, bilaterally. Subsegmental atelectasis/consolidation the left lung base, posteriorly with a small left pleural effusion suggestive of pneumonia Reported By: Aileen Lebron MD 01/14/17 1008 <Maggi Rodriguez - Last Filed: 01/14/17 10:17> - LABORATORY CBC & Chemistry Diagram: 01/14/17 07:44 01/14/17 07:44 - RADIOLOGY Radiology Studies Ordered: Category Date Time Status CHEST PA & LAT [RAD] Stat Radiology 01/14/17 07:41 Ordered <Vimal Marlow - Last Filed: 01/14/17 10:38> Medical Decision Making - Medical Decision Making 01/14/17 08:56 Dr. Quevedo, cardiology, was called via phone answering service at this time requesting a call back for doctor to doctor consult. I have been informed Dr. Wagoner is on-call and will be calling back shortly. 01/14/17 09:21 Dr. Wagoner, cardiology, was paged a second time via phone answering service at this time requesting a call back for doctor to doctor consult. 01/14/17 09:42 Dr. Wagoner returned the page and the patient's case was discussed. <Maggi Rodriguez - Last Filed: 01/14/17 10:17> - Medical Decision Making 01/14/17 08:15 A portion of this note was documented by scribe services under my direction. I have reviewed the details of the note, within reason, and agree with the documentation with the following case summary and management plan written by me. Patient treated in the ED. Nursing notes are reviewed and incorporated into the medical decision-making. Vital signs reviewed. Peripheral IV access obtained by the nurse, laboratory studies are drawn and sent, reviewed and interpreted by myself. Vital Signs Temp Pulse Resp BP Pulse Ox 97.6 F 57 L 20 148/67 98 01/14/17 07:16 01/14/17 07:16 01/14/17 07:16 01/14/17 07:16 01/14/17 07:16 26-year-old female with no past medical history postop day 6 via presents to the emergency department for cough and shortness of breath. The patient was endorsing the symptoms for approximate one month with yellowish sputum. Lately, she had noticed some very small amounts of specks of blood with her cough. Denies fevers medication reports chills. She noted that her symptoms seem to be worsening since her delivery so the patient had a chest x-ray performed 4 days ago. The chest x-ray demonstrates mainly left-sided pneumonic infiltrates concerning for pneumonia. The patient was started on Augmentin but feels like her symptoms are worsening. She complains about pleuritic left back pain. Denies prior history of pulmonary embolisms and denies being on hormonal therapy. Patient does report some lower extremity edema since her . However , denies any dysuria, urinary frequency. The patient most likely is done showing symptoms of pneumonia. Likely failing outpatient therapy. However, we'll potentially consider pulmonary embolism versus peripartum cardiomyopathy. We'll repeat the chest x-ray. The chest x-ray demonstrates an infiltrate, we will defer on CTA to rule out PE. We'll also send a BNP to rule out congestive heart failure. We'll also obtain UA to look for proteinuria for preeclampsia. 01/14/17 10:37 Chest x-ray demonstrated a large heart with unfolded aorta and a persistent left base changes. CAT scan the chest was pursued and CT scan demonstrate no pulmonary embolus but sex segmental consolidation of left base lung posteriorly with a small left pleural effusion suggestive pneumonia. The patient has lower extremity edema and elevated BNP, I discussed case with cartographic technician Dr. Wagoner in regards for potential peripartum cardiomyopathy. States that he will follow the patient as merchandising consultant. Given that the patient feels worse despite taking 72 hours of Augmentin, patient will be admitted for pneumonia in addition to a cardiac workup. Blood cultures and ceftriaxone azithromycin ordered. Case was discussed with griffin hospitalist who accepts the patient to telemetry admission. Case discussed in detail with admitting physician including history, physical exam and ancillary studies. Admitting physician has assumed care for the patient, will follow all pending diagnostics and will complete the evaluation and treatment. <Vimal Marlow - Last Filed: 01/14/17 10:38> *DC/Admit/Observation/Transfer - Attestations Scribe Attestion: 01/14/17 07:57 Documentation prepared by Maggi Rodriguez, acting as medical insurance coder for Vimal Marlow MD, <Maggi Rodriguez - Last Filed: 01/14/17 10:17> - Discharge Dispostion Admit: Yes <Vimal Marlow - Last Filed: 01/14/17 10:38> Diagnosis at time of Disposition: Pneumonia Qualifiers: Pneumonia type: due to unspecified organism Laterality: left Lung location: unspecified part of lung Qualified Code(s): J18.9 - Pneumonia, unspecified organism - Discharge Dispostion Condition at time of disposition: Stable - Referrals Referrals: Juan Moy MD [Primary Care Provider] -
[2017-01-14 08:24] LABS: URINE APPEARANCE CLEAR; URINE BILIRUBIN NEGATIVE (NEGATIVE); URINE BLOOD 1+ (NEGATIVE); URINE COLOR STRAW; URINE GLUCOSE (UA) NEGATIVE (NEGATIVE); URINE KETONE NEGATIVE (NEGATIVE); URINE NITRITE NEGATIVE (NEGATIVE); URINE PROTEIN NEGATIVE (NEGATIVE); URINE UROBILINOGEN NEGATIVE mg/dL (0.2-1.0)
[2017-01-14 08:34] LABS: BASOPHIL 0.8 % (0-2.0); EOSINOPHIL 4.4 % (0-4.5); MCH 27.2 pg (25.7-33.7); MCHC 32.5 g/dl (32.0-36.0); MEAN CELL VOLUME 83.7 fl (80-96); MEAN PLT VOLUME 9.4 fl (7.5-11.1); NEUTROPHILS 48.9 % (42.8-82.8); PLATELET COUNT 233 K/MM3 (134-434); RDW 14.2 % (11.6-15.6)
[2017-01-14 08:37] LABS: URINE MUCUS RARE; URINE RBC 2; URINE WBC 1
[2017-01-14 08:45] LABS: ALBUMIN 2.8 g/dl (3.4-5.0); ANION GAP 11 (8-16); BILIRUBIN,TOTAL 0.3 mg/dL (0.2-1.0); CALCIUM 8.6 mg/dL (8.5-10.1); CO2 21 mmol/L (21-32); CREATININE 0.7 mg/dL (0.55-1.02); GLUCOSE,RANDOM 74 mg/dL (74-106); SGOT/AST 33 U/L (15-37); SGPT/ALT 37 U/L (12-78); TOT PROT 7.2 g/dl (6.4-8.2)
[2017-01-14 08:48] LABS: INR 0.94 (0.82-1.09); PROTHROMBIN TIME (PATIENT) 10.6 SEC (9.98-11.88)
[2017-01-14 08:49] LABS: ALK PHOS 164 U/L (45-117); CPK 217 IU/L (26-192); TROPONIN I < 0.02 ng/ml (0.00-0.05)
[2017-01-14 08:51] LABS: ACTIVATED PTT 31.8 SECONDS (26.9-34.4)
[2017-01-14] MEDS ORDERED: CEFTRIAXONE 1 GM in DEXTROSE 5%-WATER - 50 ML IVPB ONE (10:11)
[2017-01-14] MEDS ORDERED: AZITHROMYCIN IVPB 500 MG in DEXTROSE 5%-WATER - 250 ML IVPB ONE (10:11)
--- NOTE | 2017-01-14 11:22 | HP ---
CHIEF COMPLAINT: PCP: HISTORY OF PRESENT ILLNESS: ER course was notable for: (1) (2) (3) Recent Travel: PAST MEDICAL HISTORY: PAST SURGICAL HISTORY: Social History: Smoking: Alcohol: Drugs: Family History: Allergies morphine Adverse Reaction (Verified 01/14/17 07:21) Hives HOME MEDICATIONS: Home Medications Medication Instructions Recorded Albuterol Sulfate Inhaler - 1 puff IH Q4H PRN #1 inhaler 01/11/17 [Ventolin HFA Inhaler -] Amox-Tr/K Cl [Augmentin - 500Mg 1 tab PO BID #10 tab 01/11/17 Tablet] Ibuprofen [Motrin -] 600 mg PO QID #28 tablet 01/12/17 Oxycodone HCl/Acetaminophen 1 tab PO Q6H #20 tablet MDD 4 01/12/17 [Percocet 5-325 mg Tablet] REVIEW OF SYSTEMS CONSTITUTIONAL: Absent: fever, chills, diaphoresis, generalized weakness, malaise, loss of appetite, weight change HEENT: Absent: rhinorrhea, nasal congestion, throat pain, throat swelling, difficulty swallowing, mouth swelling, ear pain, eye pain, visual changes CARDIOVASCULAR: Absent: chest pain, syncope, palpitations, irregular heart rate, lightheadedness , peripheral edema RESPIRATORY: Absent: cough, shortness of breath, dyspnea with exertion, orthopnea, wheezing, stridor, hemoptysis GASTROINTESTINAL: Absent: abdominal pain, abdominal distension, nausea, vomiting, diarrhea, constipation, melena, hematochezia GENITOURINARY: Absent: dysuria, frequency, urgency, hesitancy, hematuria, flank pain, genital pain MUSCULOSKELETAL: Absent: myalgia, arthralgia, joint swelling, back pain, neck pain SKIN: Absent: rash, itching, pallor HEMATOLOGIC/IMMUNOLOGIC: Absent: easy bleeding, easy bruising, lymphadenopathy, frequent infections ENDOCRINE: Absent: unexplained weight gain, unexplained weight loss, heat intolerance, cold intolerance NEUROLOGIC: Absent: headache, focal weakness or paresthesias, dizziness, unsteady gait, seizure, mental status changes, bladder or bowel incontinence PSYCHIATRIC: Absent: anxiety, depression, suicidal or homicidal ideation, hallucinations. PHYSICAL EXAMINATION Vital Signs - 24 hr 01/14/17 01/14/17 07:16 11:01 Temperature 97.6 F Pulse Rate 57 L Pulse Rate [ 53 L Left Apical] Respiratory 20 18 Rate Blood Pressure 148/67 O2 Sat by Pulse 98 100 Oximetry (%) GENERAL: Awake, alert, and fully oriented, in no acute distress. HEAD: Normal with no signs of trauma. EYES: Pupils equal, round and reactive to light, extraocular movements intact, sclera anicteric, conjunctiva clear. No lid lag. EARS, NOSE, THROAT: Ears normal, nares patent, oropharynx clear without exudates. Moist mucous membranes. NECK: Normal range of motion, supple without lymphadenopathy, JVD, or masses. LUNGS: Breath sounds equal, clear to auscultation bilaterally. No wheezes, and no crackles. No accessory muscle use. HEART: Regular rate and rhythm, normal S1 and S2 without murmur, rub or gallop. ABDOMEN: Soft, nontender, not distended, normoactive bowel sounds, no guarding, no rebound, no masses. No hepatomegaly or splenomegaly. MUSCULOSKELETAL: Normal range of motion at all joints. No bony deformities or tenderness. No CVA tenderness. UPPER EXTREMITIES: 2+ pulses, warm, well-perfused. No cyanosis. No clubbing. No peripheral edema. LOWER EXTREMITIES: 2+ pulses, warm, well-perfused. No calf tenderness. No peripheral edema. NEUROLOGICAL: Cranial nerves II-XII intact. Normal speech. Normal gait. PSYCHIATRIC: Cooperative. Good eye contact. Appropriate mood and affect. SKIN: Warm, dry, normal turgor, no rashes or lesions noted, normal capillary refill. Laboratory Results - last 24 hr 01/14/17 01/14/17 01/14/17 07:44 07:44 07:44 WBC 5.0 D RBC 3.64 Hgb 9.9 L Hct 30.4 L MCV 83.7 MCH 27.2 MCHC 32.5 RDW 14.2 Plt Count 233 D MPV 9.4 Neutrophils % 48.9 Lymphocytes % 37.8 D Monocytes % 8.1 Eosinophils % 4.4 Basophils % 0.8 PT with INR 10.60 INR 0.94 PTT (Actin FS) 31.8 Sodium 140 Potassium 4.0 Chloride 108 H Carbon Dioxide 21 Anion Gap 11 BUN 10 Creatinine 0.7 D Creat Clearance w eGFR > 60 Random Glucose 74 Lactic Acid Calcium 8.6 Total Bilirubin 0.3 D AST 33 D ALT 37 D Alkaline Phosphatase 164 H D Creatine Kinase 217 H Creatine Kinase Index 1.1 CK-MB (CK-2) 2.450 Troponin I < 0.02 B-Natriuretic Peptide 911.65 H Total Protein 7.2 Albumin 2.8 L D Urine Color Urine Appearance Urine pH Ur Specific [place] Urine Protein Urine Glucose (UA) Urine Ketones Urine Blood Urine Nitrite Urine Bilirubin Urine Urobilinogen Urine WBC (Auto) Urine RBC (Auto) Ur Epithelial Cells Urine Mucus 01/14/17 01/14/17 07:44 08:10 WBC RBC Hgb Hct MCV MCH MCHC RDW Plt Count MPV Neutrophils % Lymphocytes % Monocytes % Eosinophils % Basophils % PT with INR INR PTT (Actin FS) Sodium Potassium Chloride Carbon Dioxide Anion Gap BUN Creatinine Creat Clearance w eGFR Random Glucose Lactic Acid 0.4 Calcium Total Bilirubin AST ALT Alkaline Phosphatase Creatine Kinase Creatine Kinase Index CK-MB (CK-2) Troponin I B-Natriuretic Peptide Total Protein Albumin Urine Color Straw Urine Appearance Clear Urine pH 6.0 Ur Specific [place] 1.010 Urine Protein Negative Urine Glucose (UA) Negative Urine Ketones Negative Urine Blood 1+ H Urine Nitrite Negative Urine Bilirubin Negative Urine Urobilinogen Negative Urine WBC (Auto) 1 Urine RBC (Auto) 2 Ur Epithelial Cells Rare Urine Mucus Rare ASSESSMENT/PLAN:
[2017-01-14] MEDS: HEPARIN NA (PORCINE) 5,000 UNITS/ML 1ML VIAL SQ SCH ×3 (11:34→22:41)
--- NOTE | 2017-01-14 11:37 | HP ---
Admitting History and Physical - Primary Care Physician PCP: Dr. Moy - Admission Chief Complaint: increased cough History of Present Illness: Patient is a 26yo woman with no significant PMH s/p uncomplicated and on 01/08, discharged 2 days ago on Augmentin and Albuterol inhaler for a month long productive cough, who presents this morning with increased cough and L sided pleuritic pain. The chest pain is sharp, non- radiating, worse with inspiration, but reproducible when she presses on her chest. The patient is currently breast feeding, and reports L breast tenderness. Cough started approximately 1 month ago, which she reports worsening since being home for the past 2 days. She has never had fever, but endorses subjective chills. Sputum initially yellow/green, now clearer with "streaks of blood". During previous admission (01/08-), CXR on 01/10 showed L pneumonic infiltrates with minimal L pleural effusion, and Medicine was consulted. Pt treated for possible CAP vs viral, and started [id number] BID on 01/11 for 5 days and Albuterol inhaler prn. She has been compliant with medications. No dysuria. Last BM was this morning. History Source: Patient, Family Member, Medical Record Limitations to Obtaining History: No Limitations - Past Medical History ...LMP: 04/10/16 Psych: Yes: Panic - Past Surgical History Past Surgical History: Yes: (x2) - Smoking History Smoking history: Never smoked Have you smoked in the past 12 months: No Aproximately how many cigarettes per day: 10 If you are a former smoker, when did you quit?: 2016 - Alcohol/Substance Use Hx Alcohol Use: No - Social History ADL: Independent History of Recent Travel: No Home Medications - Allergies Allergies/Adverse Reactions: Allergies Allergy/AdvReac Type Severity Reaction Status Date / Time morphine AdvReac Hives Verified 01/14/17 07:21 - Home Medications Home Medications: Ambulatory Orders Albuterol Sulfate Inhaler - [Ventolin HFA Inhaler -] 1 puff IH Q4H PRN #1 inhaler 01/11/17 Amox-Tr/K Cl [Augmentin - 500Mg Tablet] 1 tab PO BID #10 tab 01/11/17 Ibuprofen [Motrin -] 600 mg PO QID #28 tablet 11/17/17 Oxycodone HCl/Acetaminophen [Percocet 5-325 mg Tablet] 1 tab PO Q6H #20 tablet MDD 4 01/12/17 Family Disease History - Family Disease History Family History: Unremarkable Other Family History: HTN - mother, grandmother;. DM - grandmother. Reports no familial early CV disease Review of Systems - Review of Systems Constitutional: reports: Chills, Weakness Eyes: reports: Other Neck: reports: No Symptoms Cardiovascular: reports: Chest Pain Respiratory: reports: Cough, SOB on Exertion. denies: Orthopnea Gastrointestinal: reports: No Symptoms Genitourinary: reports: No Symptoms Breasts: reports: See HPI Musculoskeletal: reports: Back Pain (L mid-back pain, non-radiating) Integumentary: reports: No Symptoms Neurological: reports: No Symptoms Endocrine: reports: No Symptoms Hematology/Lymphatic: reports: No Symptoms Psychiatric: reports: No Symptoms Physical Examination Vital Signs: Vital Signs Temperature 98.2 F 01/14/17 11:26 Pulse Rate 73 01/14/17 11:26 Respiratory Rate 18 01/14/17 11:26 Blood Pressure 119/78 01/14/17 11:26 O2 Sat by Pulse Oximetry (%) 98 on RA 01/14/17 11:26 Constitutional: Yes: Well Nourished Eyes: Yes: Conjunctiva Clear, EOM Intact HENT: Yes: Atraumatic. No: Rhinnorhea Neck: Yes: Supple. No: Lymphadenopathy Cardiovascular: Yes: Regular Rate and Rhythm, S1, S2. No: JVD Respiratory: Yes: CTA Bilaterally. No: Accessory Muscle Use, Wheezes Gastrointestinal: Yes: Normal Bowel Sounds, Soft ...Rectal Exam: Yes: Deferred Renal/: Yes: Other (transverse scar, steristrips intact, dry, incisional tenderness, no erythema) Musculoskeletal: Yes: Other Edema: Yes (1+ non-pitting edema) Edema: LLE: 1+, RLE: 1+ Peripheral Pulses WNL: Yes (2+ DP bilaterally) Wound/Incision: Yes: Clean/Dry, Steri Strips Neurological: Yes: WNL Labs: CBC, BMP 01/14/17 07:44 01/14/17 07:44 Troponin, BNP 01/14/17 07:44 Troponin I < 0.02 B-Natriuretic Peptide 911.65 H Urine Test Results Urine Color Straw 01/14/17 08:10 Urine Appearance Clear 01/14/17 08:10 Urine pH 6.0 (5.0-8.0) 01/14/17 08:10 Ur Specific Anton 1.010 (1.001-1.035) 01/14/17 08:10 Urine Protein Negative (NEGATIVE) 01/14/17 08:10 Urine Glucose (UA) Negative (NEGATIVE) 01/14/17 08:10 Urine Ketones Negative (NEGATIVE) 01/14/17 08:10 Urine Blood 1+ (NEGATIVE) H 01/14/17 08:10 Urine Nitrite Negative (NEGATIVE) 01/14/17 08:10 Urine Bilirubin Negative (NEGATIVE) 01/14/17 08:10 Ur Leukocyte Esterase Negative (NEGATIVE) 01/14/17 08:10 Ur Epithelial Cells Rare /hpf (FEW) 01/14/17 08:10 Urine Mucus Rare 01/14/17 08:10 Imaging - Results Chest X-ray: Report Reviewed, Image Reviewed, Other (Since the prior study of , there is still some fluid and possibly atelectasis at the left base. Again noted is the large heart with unfolded aorta. The right lung is clear. Impression: persistent left base changes.) EKG: Report Reviewed (01/14/17 08:16 NSR 50, TWI III, TWI V1-V3, no std/deshawn, normal axis, normal intervals, QTC 406 msec, no significant change from prior) Other: Report Reviewed, Image Reviewed (Recent delivery. Chest pain. Rule out PE. CT scan of the chest following intravenous contrast. A post intravenous contrast CT angiogram of the chest was performed utilizing pulmonary embolus protocol. Coronal/ sagittal reconstruction images were obtained. 82 cc of Omnipaque 350 was intravenously injected No gross filling defect is seen within the main pulmonary artery and its proximal branches. The thoracic and visualized portion of the upper abdominal aorta is only faintly enhanced without evidence of aneurysmal dilatation or dissection. The heart is within normal limits in size. No gross mediastinal or hilar enlarged lymph nodes are identified. There is subsegmental atelectasis in the left lung base with a small left pleural effusion. No pneumothorax is identified. Included portion of the upper abdomen appears unremarkable with heterogeneous enhancement of the spleen likely due to rapid intravenous contrast injection. Visualized osseous structures appear intact IMPRESSION: There is no evidence of a pulmonary embolus within the main pulmonary artery and its proximal branches, bilaterally. Subsegmental atelectasis/consolidation the left lung base, posteriorly with a small left pleural effusion suggestive of pneumonia) Assessment/Plan 26yo woman s/p 01/08 who presents with increase cough/chills and radiographic evidence of L base consolidation and small L pleural effusion suggestive of PNA with no improvement >72hours of out-patient treatment. #pleuritic L sided chest pain A:CTA neg, reproducible with palpation, unlikely ACS, but will admit to tele, trend trop (1st neg) -admit to tele -f/u trops -repeat EKG in AM #cardiomegaly seen on CXR, r/o peripartum cardiomyopathy, no e/o overload/acute decompensation -cardiology consulted -f/u ECHO #increase cough, possibly 2/2 viral versus bacterial PNA A:L base consolidation with small pleural effusion, clinically no improvement ( subjective chills, increased cough/sputum) despite 3 days of Augmentin -Repeat labs in AM -Continue Ceftriaxone and Azithromycin daily (both compatible with breast- feeding), will give total 10day antibiotic -f/u blood culture #Breast feeding -Breast pump for room #FEN -no IVFs -lyts wnl -Regular diet #PPX -DVT - heparin 5000U sq tid -GI - not indicated #Dispo: tele monitoring d/w Dr. Miguelina Funez MD PGY-1 - Internal Medicine Visit type - Emergency Visit Emergency Visit: Yes ED Registration Date: 01/14/17 Care time: The patient presented to the Emergency Department on the above date and was hospitalized for further evaluation of their emergent condition. - New Patient This patient is new to me today: Yes Date on this admission: 01/14/17 - Critical Care Critical Care patient: No
--- NOTE | 2017-01-14 11:46 | HP ---
Admitting History and Physical - Primary Care Physician PCP: Dr. Ada Moy - Admission Chief Complaint: Worsening cough History of Present Illness: 26 yo AA F s/p w/o any complication or significant medical history presented to the ED with worsening cough. She was discharged on 01/11 after on augmentin because of cough and positive CXR that showed LLE infiltrate. Patient returned to the ED today c/o worsening cough with speckle of blood in sputum and L mid back pain. However, she denies fever, chills, headache, palpitation, chest pain, n/v, focal weakness, urinary or bowel symptom. In the ED, she received azithyromycin and ceftriaxone for suspected CAP and underwent CTA which was negative for PE or any acute pulmonary pathology. History Source: Patient, Family Member Limitations to Obtaining History: No Limitations - Past Medical History ...LMP: 04/10/16 Psych: Yes: Panic - Past Surgical History Past Surgical History: Yes: - Smoking History Smoking history: Never smoked Have you smoked in the past 12 months: No Aproximately how many cigarettes per day: 10 If you are a former smoker, when did you quit?: 2016 - Alcohol/Substance Use Hx Alcohol Use: No - Social History ADL: Independent History of Recent Travel: No Home Medications - Allergies Allergies/Adverse Reactions: Allergies Allergy/AdvReac Type Severity Reaction Status Date / Time morphine AdvReac Hives Verified 01/14/17 07:21 - Home Medications Home Medications: Ambulatory Orders Albuterol Sulfate Inhaler - [Ventolin HFA Inhaler -] 1 puff IH Q4H PRN #1 inhaler 01/11/17 Amox-Tr/K Cl [Augmentin - 500Mg Tablet] 1 tab PO BID #10 tab 01/11/17 Ibuprofen [Motrin -] 600 mg PO QID #28 tablet 01/12/17 Oxycodone HCl/Acetaminophen [Percocet 5-325 mg Tablet] 1 tab PO Q6H #20 tablet MDD 4 01/12/17 Review of Systems - Review of Systems Constitutional: denies: Chills, Fever Eyes: reports: Other (upper eye lids swelling b/l) Cardiovascular: denies: Chest Pain, Palpitations, Shortness of Breath Respiratory: reports: Cough. denies: Hemoptysis, Orthopnea, SOB, SOB on Exertion, Wheezing Gastrointestinal: reports: No Symptoms Genitourinary: reports: No Symptoms Musculoskeletal: reports: Back Pain Neurological: reports: No Symptoms Endocrine: reports: No Symptoms Hematology/Lymphatic: reports: No Symptoms Psychiatric: reports: Depression Physical Examination Vital Signs: Vital Signs Temperature 98.2 F 01/14/17 11:26 Pulse Rate 73 01/14/17 11:26 Respiratory Rate 18 01/14/17 11:26 Blood Pressure 119/78 01/14/17 11:26 O2 Sat by Pulse Oximetry (%) 97 01/14/17 11:26 Constitutional: Yes: Anxious, Other (depressed and tearful) Eyes: Yes: Tearing, Other (upper eye lids swelling bilaterally) Neck: Yes: Supple Cardiovascular: Yes: Regular Rate and Rhythm, Murmur (low grade ejection murmur) , S1, S2, Other. No: JVD Respiratory: Yes: CTA Bilaterally Gastrointestinal: Yes: Normal Bowel Sounds, Soft, Other (suprapubic horizontal surgical scar with tapes on it) ...Rectal Exam: Yes: Deferred Edema: Yes (non pitting) Edema: LLE: 1+, RLE: 1+ Psychiatric: Yes: WNL Labs: CBC, BMP 01/14/17 07:44 01/14/17 07:44 Imaging - Results Cat Scan: Report Reviewed, Image Reviewed EKG: Report Reviewed, Image Reviewed Assessment/Plan 26 yo F s/p admitted to inpatient telemetry for suspected peripartum cardiomyopathy. Cardiomegaly - r/o peripartum cardiomyopathy - Clinically not in acute decompensated heart failure - f/u ECHO Pneumonia, ?community acquired - Afrebile without leukocytosis - Clinically no improvement 72 hours after agumentin - Negative sputum culture - Cont. ceftriaxone and azithromycin Brijesh Parkinson Medicine PGY2 Pager: [phone] Visit type - Emergency Visit Emergency Visit: Yes ED Registration Date: 01/14/17 Care time: The patient presented to the Emergency Department on the above date and was hospitalized for further evaluation of their emergent condition. - New Patient This patient is new to me today: Yes Date on this admission: 01/14/17 - Critical Care Critical Care patient: No
[2017-01-14 12:53] VITALS: BMI 27.3
[2017-01-14] MEDS ORDERED: ALBUTEROL SO4 18 GM HFA INHALER IH PRN (13:11)
[2017-01-14 14:06] LABS: URINE LEUK ESTERASE Negative (NEGATIVE)
[2017-01-14 15:59] LABS: CPK 179 IU/L (26-192); TROPONIN I < 0.02 ng/ml (0.00-0.05)
--- NOTE | 2017-01-14 16:13 | CON.CARD ---
Consult Consult Specialty:: Cardiology Referred by:: Hospitalist Medicine Reason for Consultation:: Elevated BNP - History of Present Illness Chief Complaint: Cough, left pleurisy and dyspnea History of Present Illness: 26 yo AA F s/p w/o any complication or significant medical history presented to the ED with worsening cough. She was discharged on 01/11 after on augmentin because of cough and positive CXR that showed LLL infiltrate. Patient returned to the ED today c/o worsening cough with speckle of blood in sputum and left pleurisy. She reports orthopnea, dyspnea on exertion and lower extremity edema. However, she denies fever, chills, headache , palpitation, chest pain, n/v, focal weakness, urinary or bowel symptoms. In the ED, she received azithyromycin and ceftriaxone for suspected CAP and underwent CTA which was negative for PE revealing for LLL PNA, BNP elevated. - History Source History Provided By: Patient Limitations to Obtaining History: No Limitations - Past Medical History ...LMP: 04/10/16 Psych: Yes: Panic Additional Medical History: Episode of vasovagal syncope many years ago - Past Surgical History Past Surgical History: Yes: (x2) - Alcohol/Substance Use Hx Alcohol Use: No - Smoking History Smoking history: Never smoked Have you smoked in the past 12 months: No Aproximately how many cigarettes per day: 10 If you are a former smoker, when did you quit?: 2016 - Social History Usual Living Arrangement: With Child ADL: Independent History of Recent Travel: No Home Medications - Allergies Allergies/Adverse Reactions: Allergies Allergy/AdvReac Type Severity Reaction Status Date / Time morphine AdvReac Hives Verified 01/14/17 07:21 - Home Medications Home Medications: Ambulatory Orders Albuterol Sulfate Inhaler - [Ventolin HFA Inhaler -] 1 puff IH Q4H PRN #1 inhaler 01/11/17 Amox-Tr/K Cl [Augmentin - 500Mg Tablet] 1 tab PO BID #10 tab 01/11/17 Ibuprofen [Motrin -] 600 mg PO QID #28 tablet 01/12/17 Oxycodone HCl/Acetaminophen [Percocet 5-325 mg Tablet] 1 tab PO Q6H #20 tablet MDD 4 01/12/17 Family Disease History - Family Disease History Other Family History: HTN - mother, grandmother;. DM - grandmother. Reports no familial early CV disease Review of Systems - Review of Systems Cardiovascular: reports: Edema Respiratory: reports: Orthopnea, SOB on Exertion Vital Signs: Vital Signs Temperature 98 F 01/14/17 13:18 Pulse Rate 60 01/14/17 13:18 Respiratory Rate 18 01/14/17 13:18 Blood Pressure 124/86 01/14/17 13:18 O2 Sat by Pulse Oximetry (%) 97 01/14/17 12:10 Constitutional: Yes: No Distress, Anxious Neck: Yes: Supple Respiratory: Yes: Regular, Diminished Gastrointestinal: Yes: Normal Bowel Sounds, Soft Cardiovascular: Yes: Regular Rate and Rhythm JVD: No Carotid Bruit: No Heart Sounds: Yes: S1, S2 Edema: Yes Edema: LLE: 1+, RLE: 1+ - Other Data Labs, Other Data: CBC, BMP 01/14/17 07:44 01/14/17 07:44 INR, PTT INR 0.94 (0.82-1.09) 01/14/17 07:44 Troponin, BNP 01/14/17 07:44 Troponin I < 0.02 B-Natriuretic Peptide 911.65 H Troponin, BNP 01/14/17 07:44 Troponin I < 0.02 B-Natriuretic Peptide 911.65 H SR @ [address]-T changes Imaging - Results Chest X-ray: Report Reviewed (Left base consolidation and effusion) Cat Scan: Report Reviewed (LLL infiltates and effusion) Problem List - Problems (1) Anemia Code(s): D64.9 - ANEMIA, UNSPECIFIED Qualifiers: Anemia type: unspecified type Qualified Code(s): D64.9 - Anemia, unspecified (2) Pneumonia Code(s): J18.9 - PNEUMONIA, UNSPECIFIED ORGANISM Qualifiers: Pneumonia type: due to unspecified organism Laterality: left Lung location: unspecified part of lung Qualified Code(s): J18.9 - Pneumonia, unspecified organism (3) section Code(s): Z98.89 - OTHER SPECIFIED POSTPROCEDURAL STATES * DO NOT USE * Assessment/Plan 1. Elevated BNP, r/o peripartum cardiomyopathy 2. LLL CAP with pleurisy 3. Anemia 4. s/p P:1. F/u echocardiogram to assess ventricular and valve fxn 2. Continue abx course 3. Thank you for consultative opportunity
[2017-01-14] MEDS ORDERED: guaiFENesin 200 MG/10 ML 10 ML UNIT-DOSE CUPS PO PRN (16:14)
[2017-01-14] MEDS ORDERED: IBUPROFEN 400 MG TABLET (FP) PO PRN (16:14)
[2017-01-14] MEDS ORDERED: SODIUM CHLORIDE 1,000 ML IV STA (16:20)
--- NOTE | 2017-01-14 16:20 | PN ---
Teaching Attending Note Name of Resident: Constance Funez ATTENDING PHYSICIAN STATEMENT I saw and evaluated the patient. I reviewed the resident's note and discussed the case with the resident. I agree with the resident's findings and plan as documented. SUBJECTIVE:26yo F with PMH 01/08 presented to the Er with productive cough of white sputum [id number]. states cough has not changed in quality however she started having specks of blood in her sputum assoc wiht Chest pressure. Chest pressure was R sided that radiated across her chest and was worse when coughing. also noticed increased pedal edema in the past 2 days. pt was d/c from hospital on 01/11 and was sent out on augmentin for LLL PNA. denies fever, chills, N/V/C/D pt is OBJECTIVE: Last Vital Signs Temp Pulse Resp BP Pulse Ox 98 F 60 18 124/86 97 01/14/17 13:18 01/14/17 13:18 01/14/17 13:18 01/14/17 13:18 01/14/17 12:10 General NAD HEENT dry oral mucosa CV S1 S2 RRR no murmur/rub/gallop +chest wall tenderness across the entire chest lungs CTA B/L no wheezing/rales/rhonchi abdomen gravid uterus. tenderness LLQ/RLQ Extremities non pitting edema ASSESSMENT AND PLAN: 26yo F with PMH 01/08 presented to the Er with productive cough of white sputum [id number] and found to have enlarged heart on CXR and concerned for cardiomyopathy 1. Enlarged cardiac silhouette- tele admission. was seen on CXR however CTA was done and showed normal size. pedal edema is likely subsequent of and clinically appears consistent with recent . continuous cardiac monitoring. trend cardiac enzymes. echo pending. cardio consulted 2.LLL PNA- possible failed outpatient therapy. was on day 4 of augmentin. started on azithromycin/ceftriaxone in the ER. robitussin prn cough. 3. Chest pain- likely pruritic due to persistent cough. CTA done and PE r/o. trend cardiac enzymes. echo pending 4. normocytic anemia- Hgb stable from discharge last week. check iron studies. 5. Dehydration-clinically appears dehydrated. is . give 1L NS 6. - delivery on 01/08. breast pump at bedside. no contraindication for pumping at this time 7. DVT ppx- heparin
[2017-01-14] MEDS ORDERED: LORazepam 2 MG/ML SDV VIAL IVPUSH ONE ×2 (20:45→21:00)
[2017-01-14] MEDS ORDERED: LORazepam 2 MG/ML SDV VIAL ONE (20:47)
[2017-01-14 20:57] LABS: BASOPHIL 0.6 % (0-2.0); EOSINOPHIL 3.6 % (0-4.5); MCH 27.4 pg (25.7-33.7); MEAN PLT VOLUME 9.6 fl (7.5-11.1); NEUTROPHILS 47.8 % (42.8-82.8); PLATELET COUNT 269 K/MM3 (134-434); RDW 14.4 % (11.6-15.6); WHITE BLOOD COUNT 5.2 K/mm3 (4.0-10.0)
--- NOTE | 2017-01-14 21:18 | RAPID ---
<Migel Eddy - Last Filed: 01/14/17 21:10> Physical Examination Vital Signs: Vital Signs Temperature 98.2 F 01/14/17 18:00 Pulse Rate 52 L 01/14/17 18:00 Respiratory Rate 18 01/14/17 18:00 Blood Pressure 137/86 01/14/17 18:00 O2 Sat by Pulse Oximetry (%) 97 01/14/17 12:10 Constitutional: Yes: Anxious Cardiovascular: Yes: Regular Rate and Rhythm Respiratory: Yes: Rhonchi Labs: CBC, BMP 01/14/17 20:53 Rapid Response - Rapid Response Assessment: Rapid response called for high BP for this 26F s/p currently being treated with CAP. Pt reports anxiety and mild chest pain now as well as difficulty sleeping since her delivery. Her BP was 147/108 on her right arm and 165/98 on her left arm, HR of 53, afebrile and satting well on RA. Physical exam notable for anxious appearing female, benign cardiac exam and left-sided rales. Assessment and Plan: 26F s/p currently being treated with CAP now presenting with HTN likely 2/2 post- anxiety attack, r/o pre-eclampsia. -CBC -CMP -EKG -troponin -UA -1mg ativan IV -repeat BP After ativan was given, pt calmed down, and BP decreased to around 150/90. Psych consult and echo has been already ordered. <Aureliano Fall - Last Filed: 01/14/17 22:50> Physical Examination Vital Signs: Vital Signs Temperature 98.2 F 01/14/17 18:00 Pulse Rate 52 L 01/14/17 18:00 Respiratory Rate 18 01/14/17 18:00 Blood Pressure 137/86 01/14/17 18:00 O2 Sat by Pulse Oximetry (%) 97 01/14/17 12:10 Findings/Remarks: BP decreased to 136/80- - EKG reviewed no acute ST-T changes - UA negative for protein - Most likely due to anxiety - Will follow and monitor labs Labs: CBC, BMP 01/14/17 20:53 01/14/17 20:53
[2017-01-14 21:21] LABS: ALBUMIN 2.7 g/dl (3.4-5.0); ALK PHOS 149 U/L (45-117); ANION GAP 9 (8-16); BILIRUBIN,TOTAL 0.2 mg/dL (0.2-1.0); CALCIUM 8.1 mg/dL (8.5-10.1); CO2 23 mmol/L (21-32); CREATININE 0.8 mg/dL (0.55-1.02); GLUCOSE,RANDOM 94 mg/dL (74-106); SGOT/AST 25 U/L (15-37); SGPT/ALT 33 U/L (12-78); TOT PROT 6.9 g/dl (6.4-8.2)
[2017-01-14 21:38] LABS: URINE APPEARANCE CLEAR; URINE BILIRUBIN NEGATIVE (NEGATIVE); URINE BLOOD 2+ (NEGATIVE); URINE COLOR COLORLESS; URINE GLUCOSE (UA) NEGATIVE (NEGATIVE); URINE KETONE NEGATIVE (NEGATIVE); URINE NITRITE NEGATIVE (NEGATIVE); URINE PROTEIN NEGATIVE (NEGATIVE); URINE UROBILINOGEN NEGATIVE mg/dL (0.2-1.0)
[2017-01-14 21:42] LABS: URINE MUCUS RARE; URINE RBC 12; URINE WBC 1
[2017-01-14 22:40] LABS: URINE LEUK ESTERASE Negative (NEGATIVE)
[2017-01-15] MEDS: HEPARIN NA (PORCINE) 5,000 UNITS/ML 1ML VIAL SQ SCH ×2 (06:34→14:42)
[2017-01-15 07:33] LABS: CALCIUM 8.1 mg/dL (8.5-10.1)
[2017-01-15 07:35] LABS: FERRITIN 24.953 ng/ml (6.9-282.5)
[2017-01-15 07:36] LABS: ANION GAP 8 (8-16); CO2 24 mmol/L (21-32); CREATININE 0.7 mg/dL (0.55-1.02); GLUCOSE,RANDOM 77 mg/dL (74-106)
--- NOTE | 2017-01-15 07:41 | PN ---
Physical Exam: SUBJECTIVE: Patient seen and examined. Stated that ever since people have mentioned "cardiomyopathy" to her, she has gotten anxious, wants the Echo WANG. Last night RR was called for elevated diastolic BP that resolved with 1mg Ativan. This AM she is still anxious. Breathing has improved, no productive cough. OBJECTIVE: Vital Signs Period Temp Pulse Resp BP Sys/Mag[place]on Pulse Ox Last 24 Hr 98 F-98.9 F 52-73 18-20 119-165/78-108 97-100 GEN: Awake, alert, very anxious about multiple things HEENT: PERRLA, EOMi, rhinorrhea, looks congested CV: S1, S2, RRR LUNG: CTABL ABD: Soft, NT, ND, normoactive BS MSK: Mild nonpitting BLLE edema NEURO: Facial symmetry, no MSK or sensation deficits Active Medications Generic Name Dose Route Start Last Admin Trade Name Freq PRN Reason Stop Dose Admin Albuterol Sulfate 1 puff 01/14/17 13:11 Ventolin Hfa Inhaler - IH Q4H PRN Dyspnea Guaifenesin 10 ml 01/14/17 16:14 Robitussin - PO Q4H PRN COUGH Heparin Sodium (Porcine) 5,000 unit 01/14/17 11:30 01/15/17 06:34 Heparin - SQ 5,000 unit TID KATALINA Administration Azithromycin 500 mg/ Dextrose 250 mls @ 250 mls/hr 01/15/17 10:00 IVPB DAILY KATALINA CEFTRIAXONE 1 G/50 ML PREMIX 50 mls @ 100 mls/hr 01/15/17 10:00 Ceftriaxone 1 Gm-D5w Bag IVPB DAILY KATALINA Ibuprofen 400 mg 01/14/17 16:14 01/14/17 22:43 Motrin - PO 400 mg Q6H PRN Administration PAIN Lorazepam 0.5 mg 01/15/17 07:32 Ativan Injection - IVPUSH 01/16/17 07:31 ONCE PRN ANXIETY ASSESSMENT/PLAN: 26yo woman s/p 01/08 who presents with increase cough/chills and radiographic evidence of L base consolidation and small L pleural effusion suggestive of PNA with no improvement >72hours of out-patient treatment. # Productive Cough - Could be secondary to CAP vs bronchitis. - Though exhibiting more signs of viral illness, and prior sputum cx was negative, she has improved with IV Ceftriaxone and Azithromycin. - Respiratory powers, has improved, can d/c with home antibiotics. # Anxiety - Patient endorses new onset anxiety since late , it has recently worsened since hearing about needing Echocardiogram. - Will give 0.5mg Ativan now, will get Psychiatry to see her, though this is unlikely post- depression. # Hypertensive Urgency - Episode last night that was likely due to anxiety, resolved w/ Ativan # Elevated BNP - r/o peripartum cardiomyopathy, will get echo to r/o, Cardio on board # Chest Pain - - Presented with pleuritic CP, likely due to muscle strain from coughing - Tele monitoring, cardiac enzymes, and CTA was all negative. # - Avoid toxic meds # Normocytic Anemia - Hgb stable from prior admission, check iron studies # FEN - s/p 1L NS for dehydrated appearance, elec wnl, regular diet # PPX - HSQ TID, No GI, PT not needed # Dispo - Pt would like to go home today to . d/w Dr Miguelina Adams MD - PGY1 Internal Medicine Visit type - Emergency Visit Emergency Visit: No - New Patient This patient is new to me today: No - Critical Care Critical Care patient: No - Discharge Referral Referred to [facility] Med P.C.: No
[2017-01-15 07:49] LABS: BASOPHIL 0.6 % (0-2.0); EOSINOPHIL 2.9 % (0-4.5); MCHC 32.4 g/dl (32.0-36.0); MEAN CELL VOLUME 83.3 fl (80-96); PLATELET COUNT 259 K/MM3 (134-434); RDW 14.4 % (11.6-15.6); WHITE BLOOD COUNT 4.6 K/mm3 (4.0-10.0)
[2017-01-15] MEDS ORDERED: LORazepam 2 MG/ML SDV VIAL IVPUSH ONE (08:45)
--- NOTE | 2017-01-15 09:54 | EKG ---
Test Reason : Blood Pressure : / mmHG Vent. Rate : 050 BPM Atrial Rate : 050 BPM P-R Int : 126 ms QRS Dur : 090 ms QT Int : 446 ms P-R-T Axes : 052 028 014 degrees QTc Int : 406 ms SINUS BRADYCARDIA POSSIBLE LEFT ATRIAL ENLARGEMENT ABNORMAL ECG WHEN COMPARED WITH ECG OF 10-JUL-2016 12:07, NO SIGNIFICANT CHANGE WAS FOUND Confirmed by GERALDINE LANCASTER MD ([id number]) on 01/15/2017 9:54:03 AM Referred By: Confirmed By:GERALDINE LANCASTER MD
[2017-01-15] MEDS ORDERED: CEFTRIAXONE 1 G/50 ML PREMIX 50 ML IVPB SCH (10:00)
[2017-01-15] MEDS ORDERED: CEFTRIAXONE 1 GM in DEXTROSE 5%-WATER - 50 ML IVPB SCH (10:00)
[2017-01-15] MEDS ORDERED: AZITHROMYCIN IVPB 500 MG in DEXTROSE 5%-WATER - 250 ML IVPB SCH (10:00)
--- NOTE | 2017-01-15 10:07 | PN ---
Progress Note, Physician Chief Complaint: Events noted Generalized weakness History of Present Illness: Patient was seen and examined. Awake and alert. Chart was reviewed Denies chest pain, SOB or palpitations - Current Medication List Current Medications: Active Medications Albuterol Sulfate (Ventolin Hfa Inhaler -) 1 puff IH Q4H PRN PRN Reason: Dyspnea Guaifenesin (Robitussin -) 10 ml PO Q4H PRN PRN Reason: COUGH Heparin Sodium (Porcine) (Heparin -) 5,000 unit SQ TID [facility] Last Admin: 01/15/17 06:34 Dose: 5,000 unit Azithromycin 500 mg/ Dextrose 250 mls @ 250 mls/hr IVPB DAILY [facility] CEFTRIAXONE 1 G/50 ML PREMIX (Ceftriaxone 1 Gm-D5w Bag) 50 mls @ 100 mls/hr IVPB DAILY [facility] Last Admin: 01/15/17 09:40 Dose: 100 mls/hr Ibuprofen (Motrin -) 400 mg PO Q6H PRN PRN Reason: PAIN Last Admin: 01/14/17 22:43 Dose: 400 mg - Objective Vital Signs: Vital Signs Temperature 98.7 F 01/15/17 06:00 Pulse Rate 58 L 01/15/17 06:00 Respiratory Rate 18 01/15/17 06:00 Blood Pressure 136/95 01/15/17 06:00 O2 Sat by Pulse Oximetry (%) 100 01/14/17 21:00 Neck: Yes: Supple Cardiovascular: Yes: Regular Rate and Rhythm, S1, S2 Respiratory: Yes: CTA Bilaterally Gastrointestinal: Yes: Normal Bowel Sounds, Soft. No: Tenderness Edema: No Labs: CBC, BMP 01/15/17 05:10 01/15/17 05:10 INR, PTT INR 0.94 (0.82-1.09) 01/14/17 07:44 Problem List - Problems (1) Anemia Code(s): D64.9 - ANEMIA, UNSPECIFIED Qualifiers: Anemia type: unspecified type Qualified Code(s): D64.9 - Anemia, unspecified (2) Pneumonia Code(s): J18.9 - PNEUMONIA, UNSPECIFIED ORGANISM Qualifiers: Pneumonia type: due to unspecified organism Laterality: left Lung location: unspecified part of lung Qualified Code(s): J18.9 - Pneumonia, unspecified organism (3) section Code(s): Z98.89 - OTHER SPECIFIED POSTPROCEDURAL STATES * DO NOT USE * Assessment/Plan 1. Elevated BNP, rule out cardiomyopathy 2. Pneumonia with pleurisy 3. Anemia 4. Status post PLAN: 1. Follow up transthoracic echocardiography to assess LV/RV and valvular function 2. Continue antibiotic course Further plans are to follow David Quevedo MD
[2017-01-15 11:37] VITALS: BP 134/75; PULSE 55; TEMP 98
--- NOTE | 2017-01-15 11:43 | EKG ---
Test Reason : Blood Pressure : / mmHG Vent. Rate : 058 BPM Atrial Rate : 058 BPM P-R Int : 126 ms QRS Dur : 094 ms QT Int : 444 ms P-R-T Axes : 049 023 010 degrees QTc Int : 435 ms SINUS BRADYCARDIA OTHERWISE NORMAL ECG WHEN COMPARED WITH ECG OF 14-JAN-2017 07:48, NO SIGNIFICANT CHANGE WAS FOUND Confirmed by GERALDINE LANCASTER MD ([id number]) on 01/15/2017 11:43:35 AM Referred By: Confirmed By:GERALDINE LANCASTER MD
--- NOTE | 2017-01-15 11:43 | EKG ---
Test Reason : Blood Pressure : / mmHG Vent. Rate : 052 BPM Atrial Rate : 052 BPM P-R Int : 126 ms QRS Dur : 092 ms QT Int : 440 ms P-R-T Axes : 055 013 016 degrees QTc Int : 409 ms SINUS BRADYCARDIA POSSIBLE LEFT ATRIAL ENLARGEMENT INCOMPLETE RIGHT BUNDLE BRANCH BLOCK ABNORMAL ECG WHEN COMPARED WITH ECG OF 14-JAN-2017 13:08, NO SIGNIFICANT CHANGE WAS FOUND Confirmed by ANISHA ASHER, GERALDINE ([id number]) on 01/15/2017 11:42:59 AM Referred By: Confirmed By:GERALDINE LANCASTER MD
--- NOTE | 2017-01-15 13:03 | PN ---
Teaching Attending Note Name of Resident: Cortney Adams ATTENDING PHYSICIAN STATEMENT I saw and evaluated the patient. I reviewed the resident's note and discussed the case with the resident. I agree with the resident's findings and plan as documented. SUBJECTIVE:states breathing has improved. cough improved. not having any blood specs in her sputum. denies CP, fever, chills, N/V/C/D OBJECTIVE: Last Vital Signs Temp Pulse Resp BP Pulse Ox 98 F 55 L 18 134/75 98 01/15/17 10:00 01/15/17 10:00 01/15/17 10:00 01/15/17 10:00 01/15/17 09:00 General NAD CV S1 S2 RRR no murmur/rub/gallop +chest wall tenderness across the entire chest lungs CTA B/L no wheezing/rales/rhonchi abdomen gravid uterus. tenderness LLQ/RLQ Extremities non pitting edema ASSESSMENT AND PLAN: 26yo F with PMH 01/08 presented to the Er with productive cough of white sputum [id number] and found to have enlarged heart on CXR and concerned for cardiomyopathy 1. Enlarged cardiac silhouette-low suspicion for cardiomyopathy given normal sized heart on CT scan. no events on registered nurse cardiac telemetry. echo pending. cardio consulted 2.LLL PNA- possible failed outpatient therapy. clinically improved. was on day 4 of augmentin. on azithromycin/ceftriaxone day 2. robitussin prn cough. BCx neg 3. Chest pain- likely pruritic due to persistent cough. CTA done and PE r/o. cardiac enzymes neg x3. EKG with no abnormalities. echo pending 4. Elevated BP- episode in the evening last night with BP 160/108 after argument. improved with ativan. repeat UA negative for protein. BP has been stable sine then. no indication for medication 5. normocytic anemia- Hgb stable from discharge last week. iron studies pending 6. Dehydration-clinically appears dehydrated. is . improved. 7. - delivery on 01/08. breast pump at bedside. no contraindication for pumping at this time 8. Depression- as per full time staff interpreter, family member yesterday expressed her clinical depression and needing to separate her from her child. psych eval 9. DVT ppx- heparin 10. spoke with mother at bedside. answered all questions. verbalized understanding and agreement with plan. expressed wishes for her daughter to come today.
--- NOTE | 2017-01-15 13:16 | CON.PSY ---
Psychiatry Consult Chief Complaint: Patient seen for Psych evaluationfor Post Depression, and psychosis. Patient denies that she is depressed or suicidal. Reports that she is an angry person amd wants results promptly. unhappy with her care. Symptoms: reports: Irritability, Conduct Problems, Oppositionalism - Previous Psychiatric Treatment Outpatient: None Inpatient: None - Previous Substance Abuse Treatment Outpatient: None Inpatient: None - Current Medications Current Medications: Active Medications Albuterol Sulfate (Ventolin Hfa Inhaler -) 1 puff IH Q4H PRN PRN Reason: Dyspnea Guaifenesin (Robitussin -) 10 ml PO Q4H PRN PRN Reason: COUGH Heparin Sodium (Porcine) (Heparin -) 5,000 unit SQ TID [facility] Last Admin: 01/15/17 06:34 Dose: 5,000 unit Azithromycin 500 mg/ Dextrose 250 mls @ 250 mls/hr IVPB DAILY [facility] Last Admin: 01/15/17 10:33 Dose: 250 mls/hr CEFTRIAXONE 1 G/50 ML PREMIX (Ceftriaxone 1 Gm-D5w Bag) 50 mls @ 100 mls/hr IVPB [facility]ILY [facility] Last Admin: 01/15/17 09:40 Dose: 100 mls/hr Ibuprofen (Motrin -) 400 mg PO Q6H PRN PRN Reason: PAIN Last Admin: 01/14/17 22:43 Dose: 400 mg - Allergies Allergies: Allergies Allergy/AdvReac Type Severity Reaction Status Date / Time morphine AdvReac Hives Verified 01/14/17 07:21 - Current Living Status Usual Living Arrangement: With Spouse - Current Mental Status Evaluation Appearance: Well Groomed Attitude: Belligerent - Affect Affect: Constrictive Appropriateness: Appropriate to Content - Mood Mood: Angry - Speech/Language Expressive: Coherent - Psychomotor Activity Psychomotor Activity: Normal - Thought Process Thought Process: Intact - Thought Content Hallucinations: Absent Delusions: Absent - Self Perception Self Perception: No Impairment - Cognition Attention: Alert Orientation: Time Memory, Immediate Recall: Intact Memory, Short Term: 3/3 Memory, Remote with Promptin/3 - Concentration Serial Sevens Intact: No Simple Calculations Intact: No - Abstraction Judgement: Intact - Insight Insight: Intact - Impulse Control Impulse Control: Minimally Impaired - Suicidal Ideation Suicidal Ideation: No - Homicidal Ideation Homicidal Ideation: No Assessment/Plan 1) No acute Depression or suicidal thinking or Behaviour. 2) No need for Psych follow up. 3) has good social support. 3) discharge home when medically stable.
--- NOTE | 2017-01-15 13:42 | MSN ---
Progress Note (SOAP) - Subjective History of Present Illness: Pt states she is feeling much better. Cough has subsided significantly since admission with almost minimal sputum production and no presence of blood. Complains of some occasional chest pain localized to the sternal area that occurs in association with the cough. Denies any SOB, palpitations, fever, chills, nausea, vomiting, constipation, diarrhea, dysuria, frequency, or hematuria - Current Medications Current Medications: Active Medications Albuterol Sulfate (Ventolin Hfa Inhaler -) 1 puff IH Q4H PRN PRN Reason: Dyspnea Guaifenesin (Robitussin -) 10 ml PO Q4H PRN PRN Reason: COUGH Heparin Sodium (Porcine) (Heparin -) 5,000 unit SQ TID [facility] Last Admin: 01/15/17 06:34 Dose: 5,000 unit Azithromycin 500 mg/ Dextrose 250 mls @ 250 mls/hr IVPB DAILY [facility] Last Admin: 01/15/17 10:33 Dose: 250 mls/hr CEFTRIAXONE 1 G/50 ML PREMIX (Ceftriaxone 1 Gm-D5w Bag) 50 mls @ 100 mls/hr IVPB DAILY [facility] Last Admin: 01/15/17 09:40 Dose: 100 mls/hr Ibuprofen (Motrin -) 400 mg PO Q6H PRN PRN Reason: PAIN Last Admin: 01/14/17 22:43 Dose: 400 mg - Objective Vital Signs: Vital Signs Temperature 98 F 01/15/17 10:00 Pulse Rate 55 L 01/15/17 10:00 Respiratory Rate 18 01/15/17 10:00 Blood Pressure 134/75 01/15/17 10:00 O2 Sat by Pulse Oximetry (%) 98 01/15/17 09:00 Constitutional: Yes: Well Nourished, Anxious Eyes: Yes: WNL, EOM Intact, PERRL HENT: Yes: Atraumatic, Normocephalic Neck: Yes: Supple, Trachea Midline Cardiovascular: Yes: Regular Rate and Rhythm, S1, S2, Other (Chest wall tenderness throughout the whole chest ). No: Gallop, Murmur, Rub Respiratory: Yes: CTA Bilaterally Gastrointestinal: Yes: Normal Bowel Sounds, Soft, Tenderness (RLQ, LLQ, likely incisional ) Musculoskeletal: Yes: WNL Peripheral Pulses WNL: Yes Edema: Yes Edema: LLE: 1+, RLE: Trace Neurological: Yes: Alert, Oriented, Cran Nerves II-XII Intact ...Motor Strength: Yes: WNL Psychiatric: Yes: Alert, Oriented Labs Lab Results: CBC, BMP 01/15/17 05:10 01/15/17 05:10 Laboratory Results - last 24 hr 01/14/17 01/14/17 01/14/17 15:10 20:53 20:53 WBC 5.2 RBC 3.75 Hgb 10.3 L Hct 31.1 L MCV 83.0 MCH 27.4 MCHC 33.0 RDW 14.4 Plt Count 269 MPV 9.6 Neutrophils % 47.8 Lymphocytes % 39.6 Monocytes % 8.4 Eosinophils % 3.6 Basophils % 0.6 Sodium 142 Potassium 4.1 Chloride 110 H Carbon Dioxide 23 Anion Gap 9 BUN 12 Creatinine 0.8 Creat Clearance w eGFR > 60 Random Glucose 94 D Calcium 8.1 L Ferritin Total Bilirubin 0.2 D AST 25 D ALT 33 Alkaline Phosphatase 149 H Creatine Kinase 179 Creatine Kinase Index 1.0 CK-MB (CK-2) 1.893 Troponin I < 0.02 Total Protein 6.9 Albumin 2.7 L Urine Color Urine Appearance Urine pH Ur Specific [place] Urine Protein Urine Glucose (UA) Urine Ketones Urine Blood Urine Nitrite Urine Bilirubin Urine Urobilinogen Ur Leukocyte Esterase Urine WBC (Auto) Urine RBC (Auto) Ur Epithelial Cells Urine Mucus 01/14/17 01/14/17 01/15/17 20:53 21:05 05:10 WBC 4.6 RBC 3.79 Hgb 10.2 L Hct 31.6 L MCV 83.3 MCH 27.0 MCHC 32.4 RDW 14.4 Plt Count 259 MPV 10.0 Neutrophils % 51.0 Lymphocytes % 37.2 Monocytes % 8.3 Eosinophils % 2.9 Basophils % 0.6 Sodium Potassium Chloride Carbon Dioxide Anion Gap BUN Creatinine Creat Clearance w eGFR Random Glucose Calcium Ferritin Total Bilirubin AST ALT Alkaline Phosphatase Creatine Kinase Creatine Kinase Index CK-MB (CK-2) Troponin I < 0.02 Total Protein Albumin Urine Color Colorless Urine Appearance Clear Urine pH 6.0 Ur Specific [place] 1.006 Urine Protein Negative Urine Glucose (UA) Negative Urine Ketones Negative Urine Blood 2+ H Urine Nitrite Negative Urine Bilirubin Negative Urine Urobilinogen Negative Ur Leukocyte Esterase Negative Urine WBC (Auto) 1 Urine RBC (Auto) 12 Ur Epithelial Cells Rare Urine Mucus Rare 01/15/17 01/15/17 05:10 05:10 WBC RBC Hgb Hct MCV MCH MCHC RDW Plt Count MPV Neutrophils % Lymphocytes % Monocytes % Eosinophils % Basophils % Sodium 141 Potassium 4.3 Chloride 109 H Carbon Dioxide 24 Anion Gap 8 BUN 11 Creatinine 0.7 Creat Clearance w eGFR Random Glucose 77 Calcium 8.1 L Ferritin 24.953 Cancelled Total Bilirubin AST ALT Alkaline Phosphatase Creatine Kinase Creatine Kinase Index CK-MB (CK-2) Troponin I Total Protein Albumin Urine Color Urine Appearance Urine pH Ur Specific [place] Urine Protein Urine Glucose (UA) Urine Ketones Urine Blood Urine Nitrite Urine Bilirubin Urine Urobilinogen Ur Leukocyte Esterase Urine WBC (Auto) Urine RBC (Auto) Ur Epithelial Cells Urine Mucus Assessment/Plan 26 y/o F s/p on 01/08 presented to the ED with productive cough with white sputum and specks of bloodX1 month, found to have enlarged heart on CXR. 1. Productive cough -2/2 CAP vs bronchitis -afebrile w/o leukocytosis, and neg sputum cx point towards more of viral etiology -clinically improved with IV ceftriaxone/azithromycin (day 2) -robitussin PRN cough -can D/C with augmentin 2. Suspected cardiomegaly -incidental finding on CXR -CT showed normomegaly -no signs of volume overload -echo: wnl -cards consult 3. CP -likely pleuritic, 2/2 to muscle strain from excessive coughing -CT neg, r/o PE -cardiac enzymes negx3 4. Hypertensive urgency -160s/100s -2/2 to anxiety and argument -improved with ativan -UA neg for protein, thus making eclampsia unlikely -clinically stable now 5. Mild pedal edema -2/2 to -improvement per pt 6. Concern for post- depression -family expressed concerns of pt experiencing clinical depression towards the end of -psych consult - Dr. Alexandre - no signs of depression or intention of harming self, baby, or others; clear from psych perspective 7. FEN -no IVFs -lytes wnl -normal diet 8. PPx -heparin SQ 5000u TID -no GI ppx Dispo: Can likely go home today Shona Perez, MS3
--- NOTE | 2017-01-15 13:50 | DS ---
Physical Exam: SUBJECTIVE: Patient seen and examined. Stated that ever since people have mentioned "cardiomyopathy" to her, she has gotten anxious, wants the Echo WANG. Last night RR was called for elevated diastolic BP that resolved with 1mg Ativan. Breathing has improved, no productive cough. BP has stabilized OBJECTIVE: Vital Signs Period Temp Pulse Resp BP Sys/[place] Pulse Ox Last 24 Hr 98 F-98.9 F 52-61 18-20 134-165/75-108 98-100 PHYSICAL EXAM GEN: Awake, alert, very anxious about multiple things HEENT: PERRLA, EOMi, rhinorrhea, looks congested CV: S1, S2, RRR LUNG: CTABL ABD: Soft, NT, ND, normoactive BS MSK: Mild nonpitting BLLE edema NEURO: Facial symmetry, no MSK or sensation deficits LABS Laboratory Last Values WBC 4.6 K/mm3 (4.0-10.0) 01/15/17 05:10 RBC 3.79 M/mm3 (3.60-5.2) 01/15/17 05:10 Hgb 10.2 GM/dL (10.7-15.3) L 01/15/17 05:10 Hct 31.6 % (32.4-45.2) L 01/15/17 05:10 MCV 83.3 fl (80-96) 01/15/17 05:10 MCH 27.0 pg (25.7-33.7) 01/15/17 05:10 MCHC 32.4 g/dl (32.0-36.0) 01/15/17 05:10 RDW 14.4 % (11.6-15.6) 01/15/17 05:10 Plt Count 259 K/MM3 (134-434) 01/15/17 05:10 MPV 10.0 fl (7.5-11.1) 01/15/17 05:10 Neutrophils % 51.0 % (42.8-82.8) 01/15/17 05:10 Lymphocytes % 37.2 % (8-40) 01/15/17 05:10 Monocytes % 8.3 % (3.8-10.2) 01/15/17 05:10 Eosinophils % 2.9 % (0-4.5) 01/15/17 05:10 Basophils % 0.6 % (0-2.0) 01/15/17 05:10 PT with INR 10.60 SEC (9.98-11.88) 01/14/17 07:44 INR 0.94 (0.82-1.09) 01/14/17 07:44 PTT (Actin FS) 31.8 SECONDS (26.9-34.4) 01/14/17 07:44 Sodium 141 mmol/L (136-145) 01/15/17 05:10 Potassium 4.3 mmol/L (3.5-5.1) 01/15/17 05:10 Chloride 109 mmol/L (98-107) H 01/15/17 05:10 Carbon Dioxide 24 mmol/L (21-32) 01/15/17 05:10 Anion Gap 8 (8-16) 01/15/17 05:10 BUN 11 mg/dL (7-18) 01/15/17 05:10 Creatinine 0.7 mg/dL (0.55-1.02) 01/15/17 05:10 Creat Clearance w eGFR > 60 (>60) 01/14/17 20:53 Random Glucose 77 mg/dL (74-106) 01/15/17 05:10 Lactic Acid 0.4 mmol/L (0.4-2.0) 01/14/17 07:44 Calcium 8.1 mg/dL (8.5-10.1) L 01/15/17 05:10 Ferritin 24.953 ng/ml (6.9-282.5) 01/15/17 05:10 Total Bilirubin 0.2 mg/dL (0.2-1.0) D 01/14/17 20:53 AST 25 U/L (15-37) D 01/14/17 20:53 ALT 33 U/L (12-78) 01/14/17 20:53 Alkaline Phosphatase 149 U/L (45-117) H 01/14/17 20:53 Creatine Kinase 179 IU/L (26-192) 01/14/17 15:10 Creatine Kinase Index 1.0 % (0.0-5.0) 01/14/17 15:10 CK-MB (CK-2) 1.893 ng/mL (0.5-3.6) 01/14/17 15:10 Troponin I < 0.02 ng/ml (0.00-0.05) 01/14/17 20:53 B-Natriuretic Peptide 911.65 pg/ml (5-125) H 01/14/17 07:44 Total Protein 6.9 g/dl (6.4-8.2) 01/14/17 20:53 Albumin 2.7 g/dl (3.4-5.0) L 01/14/17 20:53 Urine Color Colorless 01/14/17 21:05 Urine Appearance Clear 01/14/17 21:05 Urine pH 6.0 (5.0-8.0) 01/14/17 21:05 Ur Specific [place] 1.006 (1.001-1.035) 01/14/17 21:05 Urine Protein Negative (NEGATIVE) 01/14/17 21:05 Urine Glucose (UA) Negative (NEGATIVE) 01/14/17 21:05 Urine Ketones Negative (NEGATIVE) 01/14/17 21:05 Urine Blood 2+ (NEGATIVE) H 01/14/17 21:05 Urine Nitrite Negative (NEGATIVE) 01/14/17 21:05 Urine Bilirubin Negative (NEGATIVE) 01/14/17 21:05 Urine Urobilinogen Negative mg/dL (0.2-1.0) 01/14/17 21:05 Ur Leukocyte Esterase Negative (NEGATIVE) 01/14/17 21:05 Urine WBC (Auto) 1 01/14/17 21:05 Urine RBC (Auto) 12 01/14/17 21:05 Ur Epithelial Cells Rare /hpf (FEW) 01/14/17 21:05 Urine Mucus Rare 01/14/17 21:05 HOSPITAL COURSE: Date of Admission:01/14/17 Date of Discharge: 01/15/17 Briefly, Ms Bailon is a 26yo woman with no significant PMH s/p uncomplicated and on 01/08, discharged 2 days ago on Augmentin and Albuterol inhaler for a month long productive cough, who presents this morning with increased cough and L sided sharp, non-radiating, reproducible pleuritic pain. Cough started approximately 1 month ago, which she reports worsening since being home for the past 2 days. She has never had fever , but endorses subjective chills. Sputum initially yellow/green, now clearer with "streaks of blood". During previous admission (01/08-), CXR on 01/10 showed L pneumonic infiltrates with minimal L pleural effusion, and Medicine was consulted. Pt treated for possible CAP vs viral, and started [id number] BID on 01/11 for 5 days and Albuterol inhaler prn. She has been compliant with medications. During the hospital course, we started her on IV Azithromycin 500mg and IV Ceftraxone 1g. After two doses the patient had much relief with cessation of coughing. She never mounted a white count, and remained afebrile. A Chest X-Ray was notable for cardiomegaly, and a mildly elevated BNP was noted. An echocardiogram was obtained and was within normal limits (EF 60.7% with normal LV size, thickness, function, and filling pattern). The patietn had an episode of hypertensive urgency likely due to anxiety, which was relieved with Ativan. There was some concern for the patient's sad demeanor, and psychiatry was consulted who stated she was cleared for discharge. She will followup with her Primary Care Doctor and her OBGYN within 1 week. She will continue her taking her Augmentin for the pneumonia. Patient is aware of the hospital course and agrees with the plan. Minutes to complete discharge: 45 Discharge Summary Reason For Visit: PNEUMONIA Current Active Problems Anemia (Acute) Pneumonia (Acute) Condition: Improved - Instructions Diet, Activity, Other Instructions: RECOMMENDATIONS - You were admitted because your cough was not improving - We recommend continuing your antibiotics that we prescribed to you previously called Augmentin - You will likely still have a cough for a week - Please continue taking your albuterol inhaler as needed - There was concern that your heart was enlarged, however echo done here has shown that your heart is normal size and functioning normal. - If you experience severe chest pain, shortness of breath, please return to the Emergency Department NEW MEDICATIONS: - None, we will give you a new prescription for the Augmentin NEW FOLLOWUPS: - Dr. Moy (Primary Care Physician) - followup in 1 week - Dr. Vanessa (OBGYN) - followup in 1 week Referrals: Juna Moy MD [Primary Care Provider] - 1 Week David Vanessa MD [Staff Physician] - 1 Week Disposition: HOME - Home Medications Comprehensive Discharge Medication List: Ambulatory Orders Albuterol Sulfate Inhaler - [Ventolin HFA Inhaler -] 1 puff IH Q4H PRN #1 inhaler 01/11/17 Ibuprofen [Motrin -] 600 mg PO QID #28 tablet 01/12/17 Oxycodone HCl/Acetaminophen [Percocet 5-325 mg Tablet] 1 tab PO Q6H #20 tablet MDD 4 01/12/17 Amoxicillin/Potassium Clav [Augmentin 500-125 Tablet] 1 each PO DAILY #6 tablet 01/15/17 This patient is new to me today: No Emergency Visit: No Critical Care patient: No - Discharge Referral Referred to [facility] No
--- NOTE | 2017-01-15 13:54 | EKG ---
Test Reason : Blood Pressure : / mmHG Vent. Rate : 054 BPM Atrial Rate : 054 BPM P-R Int : 128 ms QRS Dur : 094 ms QT Int : 448 ms P-R-T Axes : 048 012 004 degrees QTc Int : 424 ms SINUS BRADYCARDIA POSSIBLE LEFT ATRIAL ENLARGEMENT BORDERLINE ECG WHEN COMPARED WITH ECG OF 14-JAN-2017 20:58, NO SIGNIFICANT CHANGE WAS FOUND Confirmed by JENNA CARY MD ([id number]) on 01/15/2017 1:53:49 PM Referred By: Confirmed By:JENNA CARY MD
[2017-01-16 06:07] LABS: SERUM IRON 59 ug/dL (27-159); TOTAL IRON BINDING CAPACITY 418 ug/dL (250-450); UIBC 359 ug/dL (131-425)
== END 2017-01-15 14:53 | disposition home or self-care (01) | DRG 561 ==
LOC: JER 07:15 → JERBED 10:38 → J4W 12:41
PROVIDERS: ADMIT Internal Medicine; ATTEND Internal Medicine
DX: O99.53 Diseases of the respiratory system complicating the puerperium (principal); O90.81 Anemia of the puerperium; J18.9 Pneumonia, unspecified organism; R07.9 Chest pain, unspecified; I51.7 Cardiomegaly; J98.11 Atelectasis; I16.0 Hypertensive urgency; R60.0 Localized edema; E86.0 Dehydration; J90 Pleural effusion, not elsewhere classified; I42.9 Cardiomyopathy, unspecified; F41.9 Anxiety disorder, unspecified
CPT/HCPCS: 36415; 71020-TC; 71275-TC; 80048; 80053; 81003; 81015; 82550; 82553; 82728; 83540; 83550; 83605; 83880; 84484; 85025; 85610; 85730; 87040; 87086; 93005; 93010; 99284-25; J1644

== ENCOUNTER 2017-01-20 22:43 | Emergency (ER) | payer OTHER ==
[2017-01-20 22:50] VITALS: BP 128/89; PULSE 69; TEMP 97.7; BMI 24.2
--- NOTE | 2017-01-20 23:57 | PDOC ---
History of Present Illness - General Chief Complaint: Wound Stated Complaint: WOUND Time Seen by Provider: 01/20/17 22:55 History Source: Patient Exam Limitations: No Limitations - History of Present Illness Initial Comments: 01/21/17 00:08 26-year-old female with no medical history presents to the emergency department for 2 complaints. Patient states she had a on 01/08/2017. Patient is requesting for wound check to her incisional site. Patient denies any drainage, malodorous, pain, fever/chills, nausea/vomiting, abdominal pains, flank pains, urinary symptoms. Patient's second complaint: Patient states she was diagnosed with pneumonia 4 days ago and requests for chest x-ray to see an improvement. Patient denies any headache, dizziness, lightheadedness, fever, chills, nausea/vomiting, cough, neck pains/stiffness, back pains, chest pain, shortness of breath. Timing/Duration: 24 hours Past History - Past Medical History Allergies/Adverse Reactions: Allergies Allergy/AdvReac Type Severity Reaction Status Date / Time morphine AdvReac Hives Verified 01/20/17 22:50 Home Medications: Ambulatory Orders Albuterol Sulfate Inhaler - [Ventolin HFA Inhaler -] 1 puff IH Q4H PRN #1 inhaler 01/11/17 Ibuprofen [Motrin -] 600 mg PO QID #28 tablet 01/12/17 Oxycodone HCl/Acetaminophen [Percocet 5-325 mg Tablet] 1 tab PO Q6H #20 tablet MDD 4 01/12/17 Amoxicillin/Potassium Clav [Augmentin 500-125 Tablet] 1 each PO DAILY #6 tablet 01/15/17 Anemia: Yes Asthma: No Cancer: No Cardiac Disorders: No CVA: No COPD: No CHF: No DVT: No Dementia: No Diabetes: No GI Disorders: No Disorders: No HTN: No Hypercholesterolemia: No Liver Disease: No Psychiatric Problems: Yes (anxeity) Seizures: No Thyroid Disease: No - Surgical History Abdominal Surgery: No Appendectomy: No Cardiac Surgery: No Cholecystectomy: No Lung Surgery: No Neurologic Surgery: No Orthopedic Surgery: No - Reproductive History (#): 6 Para: 1 Cervical CA: No Dysfunctional Uterine Bleeding: No Ectopic : No Endometrial CA: No Polycystic Ovaries: No Therapeutic (s) & number: Yes (2) Tubal Ligation: No Spontaneous : 2 - Immunization History Td Vaccination: No Immunization Up to Date: Yes - Suicide/Smoking/Psychosocial Hx Smoking Status: No Smoking History: Never smoked Years of Tobacco Use: 2 Have you smoked in the past 12 months: No Number of Cigarettes Smoked Daily: 10 If you are a former smoker, when did you quit?: 2015 'Breaking Loose' booklet given: 01/09/16 Hx Alcohol Use: No Drug/Substance Use Hx: No Substance Use Type: None Hx Substance Use Treatment: No Review of Systems - Review of Systems Able to Perform ROS?: Yes Comments:: 01/21/17 00:10 CONSTITUTIONAL: Absent: fever, chills, diaphoresis, generalized weakness, malaise, loss of appetite HEENT: Absent: rhinorrhea, nasal congestion, throat pain, throat swelling, difficulty swallowing, mouth swelling, ear pain, eye pain, visual Changes CARDIOVASCULAR: Absent: chest pain, loss of consciousness, palpitations, irregular heart rate, peripheral edema RESPIRATORY: Absent: cough, shortness of breath, dyspnea with exertion, orthopnea, wheezing, stridor, hemoptysis GASTROINTESTINAL: Absent: abdominal pain, abdominal distension, nausea, vomiting, diarrhea, constipation, melena, hematochezia GENITOURINARY: Absent: dysuria, frequency, urgency, hesitancy, hematuria, flank pain MUSCULOSKELETAL: Absent: myalgia, arthralgia, joint swelling SKIN: C section wound; neg pain/redness Absent: rash, itching, pallor HEMATOLOGIC/IMMUNOLOGIC: Absent: easy bleeding, easy bruising, lymphadenopathy, frequent infections ENDOCRINE: Absent: unexplained weight gain, unexplained weight loss, heat intolerance, cold intolerance NEUROLOGIC: Absent: headache, focal weakness or paresthesias, dizziness, unsteady gait, seizure, mental status changes, bladder or bowel incontinence PSYCHIATRIC: Absent: anxiety, depression, suicidal or homicidal ideation, hallucinations. 01/21/17 00:10 Is the patient limited Urdu proficient: No *Physical Exam - Vital Signs Last Vital Signs Temp Pulse Resp BP Pulse Ox 97.7 F 69 18 128/89 97 01/20/17 22:46 01/20/17 22:46 01/20/17 22:46 01/20/17 22:46 01/20/17 22:46 - Physical Exam Comments: 01/21/17 00:10 GENERAL: Well developed, well nourished. Awake and alert. No acute distress. HEENT: Normocephalic, atraumatic. PERRLA, EOMI. No conjunctival pallor. Sclera are non- icteric. Moist mucous membranes. Oropharynx is clear. NECK: Supple. Full ROM. No JVD. Carotid pulses 2+ and symmetric, without bruits. No thyromegaly. No lymphadenopathy. CARDIOVASCULAR: Regular rate and rhythm. No murmurs, rubs, or gallops. Distal pulses are 2+ and symmetric. PULMONARY: No evidence of respiratory distress. Lungs clear to auscultation bilaterally. No wheezing, rales or rhonchi. ABDOMINAL: Soft. Non-tender. Non-distended. No rebound or guarding. No organomegaly. Normoactive bowel sounds. MUSCULOSKELETAL Normal range of motion at all joints. No bony deformities or tenderness. No CVA tenderness. EXTREMITIES: No cyanosis. No clubbing. No edema. No calf tenderness. SKIN: Warm and dry. Normal capillary refill. No rashes. No jaundice. C section; wound healing well/neg drainage/erythematous/lymphangitis, pain on palp ED Treatment Course - RADIOLOGY Radiograph Interpretation: 01/21/17 00:11 cxr: NAD *DC/Admit/Observation/Transfer Diagnosis at time of Disposition: Visit for wound check, Normal chest x-ray - Discharge Dispostion Disposition: HOME Condition at time of disposition: Stable Admit: No - Referrals Referrals: Juan Moy MD [Primary Care Provider] - - Patient Instructions Additional Instructions: Return to the ER for cough/fever/ pain - Post Discharge Activity
[2017-01-21 01:10] LABS: URINE APPEARANCE SLCLOUDY; URINE BILIRUBIN NEGATIVE (NEGATIVE); URINE BLOOD NEGATIVE (NEGATIVE); URINE COLOR LTYELLOW; URINE GLUCOSE (UA) NEGATIVE (NEGATIVE); URINE KETONE NEGATIVE (NEGATIVE); URINE NITRITE NEGATIVE (NEGATIVE); URINE PROTEIN NEGATIVE (NEGATIVE); URINE UROBILINOGEN NEGATIVE mg/dL (0.2-1.0)
--- NOTE | 2017-01-21 01:22 | PDOC ---
*Physical Exam - Vital Signs Last Vital Signs Temp Pulse Resp BP Pulse Ox 97.7 F 69 18 128/89 97 01/20/17 22:46 01/20/17 22:46 01/20/17 22:46 01/20/17 22:46 01/20/17 22:46 ED Treatment Course - ADDITIONAL ORDERS Additional order review: Laboratory Results 01/21/17 00:45 Urine Color Ltyellow Urine Appearance Slcloudy Urine pH 6.0 Ur Specific [place] 1.017 Urine Protein Negative Urine Glucose (UA) Negative Urine Ketones Negative Urine Blood Negative Urine Nitrite Negative Urine Bilirubin Negative Urine Urobilinogen Negative Urine HCG, Qual Indeterminate Medical Decision Making - Medical Decision Making 01/21/17 01:22 Pt seen by the Advanced Practice Provider under my direct supervision Ancillary studies reviewed I agree with plan as outlined by the Advanced Practice Provider DALIA Rodriguez *DC/Admit/Observation/Transfer Diagnosis at time of Disposition: Visit for wound check - Discharge Dispostion Condition at time of disposition: Stable - Referrals Referrals: Juan Moy MD [Primary Care Provider] - - Patient Instructions Additional Instructions: Return to the ER for cough/fever/ pain - Post Discharge Activity
[2017-01-21 11:12] LABS: URINE LEUK ESTERASE 2+ (NEGATIVE)
[2017-01-21 11:50] LABS: URINE BACTERIA MODERATE /hpf (NEGATIVE); URINE RBC 0-3 /hpf (0-3)
== END 2017-01-21 02:26 | disposition home or self-care (01) ==
LOC: JER 22:43
DX: O99.89 Other specified diseases and conditions complicating pregnancy, childbirth and the puerperium (principal); Z09 Encounter for follow-up examination after completed treatment for conditions other than malignant neoplasm; Z00.00 Encounter for general adult medical examination without abnormal findings; Z13.89 Encounter for screening for other disorder
CPT/HCPCS: 71020-TC; 81003; 81015; 84703; 99281-25

== ENCOUNTER 2017-01-23 17:57 | Emergency (ER) | payer OTHER ==
[2017-01-23 18:09] VITALS: BP 120/68; PULSE 88; TEMP 98.5; BMI 24.0
[2017-01-23] MEDS ORDERED: ACETAMINOPHEN 650 MG/20.3 ML ORAL SOLUTION (CUPS) PO ONE (18:59)
[2017-01-23] MEDS ORDERED: ACETAMINOPHEN 325 MG TABLET (FP) ONE (19:22)
[2017-01-23 19:28] LABS: BASOPHIL 0.7 % (0-2.0); EOSINOPHIL 3.3 % (0-4.5); MCH 27.7 pg (25.7-33.7); MCHC 33.3 g/dl (32.0-36.0); MEAN CELL VOLUME 83.1 fl (80-96); MEAN PLT VOLUME 9.5 fl (7.5-11.1); PLATELET COUNT 290 K/MM3 (134-434); RDW 14.4 % (11.6-15.6); WHITE BLOOD COUNT 3.8 K/mm3 (4.0-10.0)
[2017-01-23 19:55] LABS: ALBUMIN 3.5 g/dl (3.4-5.0); ANION GAP 6 (8-16); BILIRUBIN,TOTAL 0.2 mg/dL (0.2-1.0); CALCIUM 8.7 mg/dL (8.5-10.1); CO2 27 mmol/L (21-32); CREATININE 0.8 mg/dL (0.55-1.02); GLUCOSE,RANDOM 108 mg/dL (74-106); SGOT/AST 21 U/L (15-37); SGPT/ALT 26 U/L (12-78); TOT PROT 7.7 g/dl (6.4-8.2)
[2017-01-23 19:56] LABS: ALK PHOS 112 U/L (45-117)
--- NOTE | 2017-01-23 20:12 | PDOC ---
History of Present Illness - History of Present Illness Initial Comments: 01/23/17 20:13 The patient is a 26 year old female, who had a on 01/08/17, and presents to the emergency department with vaginal bleeding. Patient became hypertensive and developed pneumonia 1 week ago .Yesterday she had a chest x- ray which showed that the pneumonia resolved. Today she had started coughing and noticed that she passed a large blood clot. She denies recent fevers, chills, headache or dizziness. She denies recent nausea, vomit, diarrhea or constipation. She denies recent dysuria, frequency, urgency or hematuria. She denies recent chest pain or shortness of breath. Past surgical history: Social history: Nonsmoker. Denies EtOH use and recreational drug use. COMMUNICATIONS EQUIPMENT INSTALLER: David Vanessa, <Lorri Vega - Last Filed: 01/23/17 20:16> <Aislinn Bravo - Last Filed: 01/23/17 22:26> - General Chief Complaint: Vaginal Bleeding Stated Complaint: VAGINAL BLEED/ Time Seen by Provider: 01/23/17 18:11 Past History <Lorri Vega - Last Filed: 01/23/17 20:16> - Past Medical History Anemia: Yes Asthma: No Cancer: No Cardiac Disorders: No CVA: No COPD: No CHF: No DVT: No Dementia: No Diabetes: No GI Disorders: No Disorders: No HTN: Yes Hypercholesterolemia: No Liver Disease: No Psychiatric Problems: Yes (anxeity) Seizures: No Thyroid Disease: No - Surgical History Abdominal Surgery: Yes Appendectomy: No Cardiac Surgery: No Cholecystectomy: No Lung Surgery: No Neurologic Surgery: No Orthopedic Surgery: No - Reproductive History (#): 6 Para: 1 Cervical CA: No Dysfunctional Uterine Bleeding: No Ectopic : No Endometrial CA: No Polycystic Ovaries: No Therapeutic (s) & number: Yes (2) Tubal Ligation: No Spontaneous : 2 - Immunization History Td Vaccination: No Immunization Up to Date: Yes - Suicide/Smoking/Psychosocial Hx Smoking Status: No Smoking History: Never smoked Years of Tobacco Use: 2 Have you smoked in the past 12 months: No Number of Cigarettes Smoked Daily: 10 If you are a former smoker, when did you quit?: 2016 Information on smoking cessation initiated: No 'Breaking Loose' booklet given: 01/09/16 Hx Alcohol Use: No Drug/Substance Use Hx: No Substance Use Type: None Hx Substance Use Treatment: No <LawrenceParamjitmackenzie Gonzales - Last Filed: 01/23/17 22:26> - Past Medical History Allergies/Adverse Reactions: Allergies Allergy/AdvReac Type Severity Reaction Status Date / Time morphine AdvReac Hives Verified 01/23/17 18:00 Home Medications: Ambulatory Orders Nifedipine [Procardia Xl] 30 mg PO DAILY 01/23/17 Abd/GI Specific PMHX - Complaint Specific PMHX Colitis: No Diverticulitis: No Gall Bladder Disease: No GERD: No Hepatitis: No Irritable Bowel Synd (IBS): No Pancreatitis: No GI Ulcer Disease: No <LawrenceParamjitmackenzie Gonzales - Last Filed: 01/23/17 22:26> Review of Systems - Review of Systems Comments:: 01/23/17 20:13 CONSTITUTIONAL: Absent: fever, no chills, no fatigue EYES: Absent: visual changes ENT: Absent: ear pain, no sore throat CARDIOVASCULAR: Absent: chest pain, no palpitations RESPIRATORY: Present: cough Absent: no SOB GI: Absent: abdominal pain, no nausea, no vomiting, no constipation, no diarrhea GENITOURINARY: Absent: dysuria, no frequency, no hematuria CLAIMS ASSOCIATE: Present: vaginal bleeding MUSCULOSKELETAL: Absent: back pain, no arthralgia, no myalgia SKIN: Absent: rash NEURO: Absent: headache <Lorri Vega - Last Filed: 01/23/17 20:16> *Physical Exam - Vital Signs Last Vital Signs Temp Pulse Resp BP Pulse Ox 98.5 F 88 18 120/68 99 01/23/17 18:02 01/23/17 18:02 01/23/17 18:02 01/23/17 18:02 01/23/17 18:02 - Physical Exam Comments: 01/23/17 20:14 GENERAL: Well-appearing, well-nourished. No apparent distress. HEENT: Normocephalic, atraumatic. PERRL, EOM intact. CARDIOVASCULAR: Normal S1, S2. Regular rate and rhythm. PULMONARY: Clear to auscultation bilaterally. ABDOMEN: Soft, non-distended, non-tender. Guarding site. EXTREMITIES: Normal ROM in all four extremities. No gross deformities. SKIN: Warm, dry. No rash NEUROLOGICAL: No focal neurological deficits. <Lorri Vega - Last Filed: 01/23/17 20:16> - Vital Signs Last Vital Signs Temp Pulse Resp BP Pulse Ox 98.5 F 88 18 120/68 99 01/23/17 18:02 01/23/17 18:02 01/23/17 18:02 01/23/17 18:02 01/23/17 18:02 <Aislinn Bravo - Last Filed: 01/23/17 22:26> ED Treatment Course - LABORATORY CBC & Chemistry Diagram: 01/23/17 19:07 01/23/17 19:07 - ADDITIONAL ORDERS Additional order review: Laboratory Results 01/23/17 19:07 Sodium 139 Potassium 4.3 Chloride 106 Carbon Dioxide 27 Anion Gap 6 L BUN 20 H D Creatinine 0.8 Creat Clearance w eGFR > 60 Random Glucose 108 H D Calcium 8.7 Total Bilirubin 0.2 AST 21 ALT 26 D Alkaline Phosphatase 112 D Total Protein 7.7 Albumin 3.5 D 01/23/17 19:07 RBC 4.49 MCV 83.1 MCHC 33.3 RDW 14.4 MPV 9.5 Neutrophils % 41.0 L Lymphocytes % 46.2 H D Monocytes % 8.8 Eosinophils % 3.3 Basophils % 0.7 - Medications Given in the ED: ED Medications Discontinued Medications Generic Name Dose Route Start Last Admin Trade Name Freq PRN Reason Stop Dose Admin Acetaminophen 650 mg 01/23/17 18:59 01/23/17 19:36 Tylenol Oral Solution - PO 01/23/17 19:00 650 mg ONCE ONE Administration <Lorri Vega - Last Filed: 01/23/17 20:16> - LABORATORY CBC & Chemistry Diagram: 01/23/17 19:07 01/23/17 19:07 - ADDITIONAL ORDERS Additional order review: Laboratory Results 01/23/17 19:07 Sodium 139 Potassium 4.3 Chloride 106 Carbon Dioxide 27 Anion Gap 6 L BUN 20 H D Creatinine 0.8 Creat Clearance w eGFR > 60 Random Glucose 108 H D Calcium 8.7 Total Bilirubin 0.2 AST 21 ALT 26 D Alkaline Phosphatase 112 D Total Protein 7.7 Albumin 3.5 D 01/23/17 19:07 RBC 4.49 MCV 83.1 MCHC 33.3 RDW 14.4 MPV 9.5 Neutrophils % 41.0 L Lymphocytes % 46.2 H D Monocytes % 8.8 Eosinophils % 3.3 Basophils % 0.7 - Medications Given in the ED: ED Medications Discontinued Medications Generic Name Dose Route Start Last Admin Trade Name Arlin PRN Reason Stop Dose Admin Acetaminophen 650 mg 01/23/17 18:59 01/23/17 19:36 Tylenol Oral Solution - PO 01/23/17 19:00 650 mg ONCE ONE Administration <Aislinn Bravo - Last Filed: 01/23/17 22:26> *DC/Admit/Observation/Transfer - Attestations Scribe Attestion: 01/23/17 20:16 Documentation prepared by Lorri Vega, acting as medical records secretary for Aislinn Bravo MD. <Lorri Vega - Last Filed: 01/23/17 20:16> <Aislinn Bravo - Last Filed: 01/23/17 22:26> Diagnosis at time of Disposition: bleeding Qualifiers: hemorrhage type: unspecified Qualified Code(s): O72.1 - Other immediate hemorrhage - Discharge Dispostion Disposition: HOME Condition at time of disposition: Stable - Referrals Referrals: Juan Moy MD [Primary Care Provider] - David Vanessa MD [Staff Physician] - - Patient Instructions Printed Discharge Instructions: DI for Hemorrhage Additional Instructions: please follow up with your cigar head puncher - Post Discharge Activity
[2017-01-23] MEDS ORDERED: SODIUM CHLORIDE 1,000 ML IV STA (20:32)
[2017-01-23 20:54] LABS: URINE APPEARANCE CLEAR; URINE BILIRUBIN NEGATIVE (NEGATIVE); URINE BLOOD 1+ (NEGATIVE); URINE COLOR LT. YELLOW; URINE GLUCOSE (UA) NEGATIVE (NEGATIVE); URINE KETONE NEGATIVE (NEGATIVE); URINE NITRITE NEGATIVE (NEGATIVE); URINE PROTEIN NEGATIVE (NEGATIVE); URINE UROBILINOGEN 0.2 mg/dL (0.2-1.0)
[2017-01-24 09:23] LABS: URINE LEUK ESTERASE Negative (NEGATIVE)
== END 2017-01-23 23:06 | disposition home or self-care (01) ==
LOC: JER 17:57
PROC: 3E0337Z Introduction of Electrolytic and Water Balance Substance into Peripheral Vein, Percutaneous Approach (ICD-10-PCS; principal; 2017-01-23)
DX: O72.2 Delayed and secondary postpartum hemorrhage (principal)
CPT/HCPCS: 36415; 76856-TC; 80053; 81003; 81015; 85025; 96360; 99283-25

== ENCOUNTER 2017-03-04 01:30 | Emergency (ER) | payer OTHER ==
[2017-03-04 01:51] VITALS: BP 107/79; PULSE 83; TEMP 98.1; BMI 24.2
--- NOTE | 2017-03-04 02:27 | PDOC ---
Attending Attestation - Resident Resident Name: Gabe Paula - ED Attending Attestation I have performed the following: I have examined & evaluated the patient, The case was reviewed & discussed with the resident, I agree w/resident's findings & plan - HPI HPI: 03/04/17 03:48 Pt comes with chest pain; normal EKG; she has a hx of panic attacks. - Physicial Exam PE: 03/04/17 03:48 Normal exam Agree with resident exam - Medical Decision Making 03/04/17 03:48 Home with PMD/psych follow up.
--- NOTE | 2017-03-04 02:55 | PDOC ---
History of Present Illness - General Chief Complaint: Chest Pain Stated Complaint: CHEST DISCOMFORT Time Seen by Provider: 03/04/17 02:23 - History of Present Illness Initial Comments: 03/04/17 02:48 Pt is a 26 y/o (2 elective, 2 spontaneous) F with PMH anxiety, depression, HTN (normal echo in 01/12) who presents to ED with CP. Pt states the pain is sharp, starting on the left side of the chest (below the left breast) and radiating to the left side of her chest. The pain is not related to activity, not worse when pressing on the chest, and is without alleviating or exacerbating features. Pt states she has been diagnosed with panic attacks and this feels just like the chest pain she gets when she has a panic attack. Denies headache, fever, chills, nausea, vomiting, diarrhea. Pt sees Dr. Moy as an outpt. She takes Ativan and Nifedipine. Past History - Past Medical History Allergies/Adverse Reactions: Allergies Allergy/AdvReac Type Severity Reaction Status Date / Time morphine AdvReac Hives Verified 01/23/17 18:00 Home Medications: Ambulatory Orders Nifedipine [Procardia Xl] 30 mg PO DAILY 01/23/17 Anemia: Yes Asthma: No Cancer: No Cardiac Disorders: No CVA: No COPD: No CHF: No DVT: No Dementia: No Diabetes: No GI Disorders: No Disorders: No HTN: Yes Hypercholesterolemia: No Liver Disease: No Psychiatric Problems: Yes (anxeity) Seizures: No Thyroid Disease: No - Surgical History Abdominal Surgery: Yes Appendectomy: No Cardiac Surgery: No Cholecystectomy: No Lung Surgery: No Neurologic Surgery: No Orthopedic Surgery: No - Reproductive History (#): 6 Para: 1 Cervical CA: No Dysfunctional Uterine Bleeding: No Ectopic : No Endometrial CA: No Polycystic Ovaries: No Therapeutic (s) & number: Yes (2) Tubal Ligation: No Spontaneous : 2 - Immunization History Td Vaccination: No Immunization Up to Date: Yes - Suicide/Smoking/Psychosocial Hx Smoking Status: No Smoking History: Never smoked Years of Tobacco Use: 2 Have you smoked in the past 12 months: No Number of Cigarettes Smoked Daily: 10 If you are a former smoker, when did you quit?: 2016 Information on smoking cessation initiated: No 'Breaking Loose' booklet given: 11/13/16 Hx Alcohol Use: No Drug/Substance Use Hx: No Substance Use Type: None Hx Substance Use Treatment: No Review of Systems - Review of Systems Able to Perform ROS?: Yes Is the patient limited Bhutanese proficient: No Constitutional: Yes: Symptoms Reported. No: Chills, Diaphoresis, Fever HEENTM: Yes: Symptoms Reported. No: Eye Pain, Blurred Vision Respiratory: Yes: Symptoms reported. No: Cough, Orthopnea, Shortness of Breath Cardiac (ROS): Yes: Symptoms Reported, Chest Pain (sharp radiating to the left chest wall) ABD/GI: Yes: Symptoms Reported. No: Abdominal Distended, Constipated, Diarrhea , Nausea, Poor Appetite, Poor Fluid Intake, Vomiting : Yes: Symptoms Reported. No: Burning, Dysuria, Discharge, Frequency Musculoskeletal: Yes: Symptoms Reported. No: Back Pain Psychiatric: Yes: Anxiety, Depression, Stressors *Physical Exam - Vital Signs Last Vital Signs Temp Pulse Resp BP Pulse Ox 98.1 F 83 16 107/79 100 03/04/17 01:45 03/04/17 01:45 03/04/17 01:45 03/04/17 01:45 03/04/17 01:45 - Physical Exam General Appearance: Yes: Nourished, Appropriately Dressed, Apparent Distress HEENT: positive: EOMI, MICHAEL, Normal ENT Inspection Neck: positive: Supple. negative: Tender Respiratory/Chest: positive: Lungs Clear, Normal Breath Sounds. negative: Chest Tender Cardiovascular: positive: Regular Rhythm, Regular Rate, S1, S2 Vascular Pulses: Dorsalis-Pedis (R): 2+, Doralis-Pedis (L): 2+ Gastrointestinal/Abdominal: positive: Normal Bowel Sounds, Flat, Soft. negative : Tender Extremity: positive: Normal Capillary Refill, Normal Inspection Neurologic: positive: food services director II-XII NML intact, Fully Oriented, Alert, Normal Mood/ Affect Medical Decision Making - Medical Decision Making 03/04/17 02:59 Pt is a 26 y/o F with anxiety, depression, and panic attacks who presents to ED with CP. She recently had an echo (01/12), which was unremarkable. Pt states her CP feels just like that of her prior panic attacks. Cardiac source unlikely. Plan -low suspicion for cardiac etiology -EKG 03/04/17 05:34 EKG unremarkable. Pt stable, afebrile, in NAD. Stable for d/c *DC/Admit/Observation/Transfer Diagnosis at time of Disposition: Anxiety - Discharge Dispostion Disposition: HOME Condition at time of disposition: Good Admit: No - Referrals Referrals: Juan Moy MD [Primary Care Provider] - - Patient Instructions Printed Discharge Instructions: DI for Atypical Chest Pain Additional Instructions: Please make sure you follow up with your primary medical doctor about your chest pain, anxiety, and your concerns about your blood pressure medication. Please make sure you take all your prescription medications as directed. If you develop new symptoms or if your symptoms get worse, please return to the emergency department. - Post Discharge Activity
--- NOTE | 2017-03-04 11:31 | EKG ---
Test Reason : Blood Pressure : / mmHG Vent. Rate : 057 BPM Atrial Rate : 057 BPM P-R Int : 134 ms QRS Dur : 098 ms QT Int : 422 ms P-R-T Axes : 048 032 038 degrees QTc Int : 410 ms SINUS BRADYCARDIA INCOMPLETE RIGHT BUNDLE BRANCH BLOCK WHEN COMPARED WITH ECG OF 15-JAN-2017 09:50, NONSPECIFIC T WAVE ABNORMALITY HAS REPLACED INVERTED T WAVES IN INFERIOR LEADS Confirmed by YOSEF PERRY MD ([id number]) on 03/04/2017 11:31:27 AM Referred By: Confirmed By:YOSEF PERRY MD
== END 2017-03-04 04:02 | disposition home or self-care (01) ==
LOC: JER 01:30
DX: F41.0 Panic disorder [episodic paroxysmal anxiety] (principal); F41.8 Other specified anxiety disorders; I10 Essential (primary) hypertension
CPT/HCPCS: 93005; 93010; 99283-25

== ENCOUNTER 2017-06-19 22:26 | Emergency (ER) | payer OTHER ==
[2017-06-19 22:49] VITALS: BP 100/70; PULSE 95; TEMP 99.5; BMI 24.4
--- NOTE | 2017-06-19 23:18 | PDOC ---
History of Present Illness <LawrenceAislinnmackenzie Gonzales - Last Filed: 06/19/17 23:17> - History of Present Illness Initial Comments: 06/19/17 23:58 Patient is a 26F, with PMHx of HTN, 2 c-sections, who presents to the ED for 1 week of cold symptoms. Her cheif complaint is lower abdominal tenderness and lumbar pain. Patient is complaining of fever (101), body aches, constipation, abdominal bloating, chest pain and nasal congestion. She states that her symptoms worsened yesterday. Denies cough, nausea vomitting, diarrhea. Denies sick contacts however she works as a retail pharmacist. Chinmay - PCP Hector - health science writer <Lorri Vega - Last Filed: 06/20/17 01:38> - General Chief Complaint: Cold Symptoms Stated Complaint: COLD SYMPTOMS Time Seen by Provider: 06/19/17 23:03 Past History - Past Medical History Anemia: Yes Asthma: No Cancer: No Cardiac Disorders: No CVA: No COPD: No CHF: No DVT: No Dementia: No Diabetes: No GI Disorders: No Disorders: No HTN: Yes Hypercholesterolemia: No Liver Disease: No Psychiatric Problems: Yes (anxeity) Seizures: No Thyroid Disease: No - Surgical History Abdominal Surgery: Yes Appendectomy: No Cardiac Surgery: No Cholecystectomy: No Lung Surgery: No Neurologic Surgery: No Orthopedic Surgery: No - Reproductive History (#): 6 Para: 1 Cervical CA: No Dysfunctional Uterine Bleeding: No Ectopic : No Endometrial CA: No Polycystic Ovaries: No Therapeutic (s) & number: Yes (2) Tubal Ligation: No Spontaneous : 2 - Immunization History Td Vaccination: No Immunization Up to Date: Yes - Suicide/Smoking/Psychosocial Hx Smoking Status: No Smoking History: Never smoked Years of Tobacco Use: 2 Have you smoked in the past 12 months: No Number of Cigarettes Smoked Daily: 10 If you are a former smoker, when did you quit?: 2016 Information on smoking cessation initiated: No 'Breaking Loose' booklet given: 01/09/16 Hx Alcohol Use: No Drug/Substance Use Hx: No Substance Use Type: None Hx Substance Use Treatment: No <Aislinn Bravo - Last Filed: 06/19/17 23:17> <Lorri Vega - Last Filed: 06/20/17 01:38> - Past Medical History Allergies/Adverse Reactions: Allergies Allergy/AdvReac Type Severity Reaction Status Date / Time No Known Allergies Allergy Verified 06/19/17 22:50 Home Medications: Ambulatory Orders NK [No Known Home Medication] 06/19/17 Review of Systems - Review of Systems Comments:: 06/20/17 00:10 CONSTITUTIONAL: Present: fever, chills HEENT: Present nasal congestion. Absent: rhinorrhea, throat pain, throat swelling, difficulty swallowing, mouth swelling, ear pain, eye pain, visual changes CARDIOVASCULAR: Present: chest pain. Absent: syncope, palpitations, irregular heart rate, lightheadedness, peripheral edema RESPIRATORY: Absent: cough, shortness of breath, dyspnea with exertion, orthopnea, wheezing, stridor, hemoptysis GASTROINTESTINAL: Present: lower abdominal pain and bloating, constipation. Absent: nausea, vomiting, diarrhea, melena, hematochezia GENITOURINARY: Absent: dysuria, frequency, urgency, hesitancy, hematuria, flank pain, genital pain MUSCULOSKELETAL: Present: lower back pain Absent: joint swelling SKIN: Absent: rash, itching, pallor HEMATOLOGIC/IMMUNOLOGIC: Absent: easy bleeding, easy bruising, lymphadenopathy, frequent infections ENDOCRINE: Absent: unexplained weight gain, unexplained weight loss, heat intolerance, cold intolerance NEUROLOGIC: Absent: headache, focal weakness or paresthesias, dizziness, unsteady gait, seizure, mental status changes, bladder or bowel incontinence PSYCHIATRIC: Absent: anxiety, depression, suicidal or homicidal ideation, hallucinations. 06/20/17 00:34 <Lorri Vega - Last Filed: 06/20/17 01:38> *Physical Exam - Vital Signs Last Vital Signs Temp Pulse Resp BP Pulse Ox 99.5 F 95 H 20 100/70 100 06/19/17 22:45 06/19/17 22:45 06/19/17 22:45 06/19/17 22:45 06/19/17 22:45 <Aislinn Bravo - Last Filed: 06/19/17 23:17> - Vital Signs Last Vital Signs Temp Pulse Resp BP Pulse Ox 99.5 F 95 H 20 100/70 100 06/19/17 22:45 06/19/17 22:45 06/19/17 22:45 06/19/17 22:45 06/19/17 22:45 - Physical Exam Comments: 06/20/17 00:20 GENERAL: Well developed, well nourished. Awake and alert. No acute distress. HEENT: Normocephalic, atraumatic. PERRLA, EOMI. No conjunctival pallor. Sclera are non- icteric. Moist mucous membranes. Oropharynx is clear. NECK: Supple. Full ROM. No JVD. Carotid pulses 2+ and symmetric, without bruits. No thyromegaly. No lymphadenopathy. CARDIOVASCULAR: Regular rate and rhythm. No murmurs, rubs, or gallops. Distal pulses are 2+ and symmetric. PULMONARY: No evidence of respiratory distress. Lungs clear to auscultation bilaterally. No wheezing, rales or rhonchi. ABDOMINAL: Soft. Pelvic tenderness. Mild abdominal bloating. No rebound or guarding. No organomegaly. Normoactive bowel sounds. MUSCULOSKELETAL Normal range of motion at all joints. No bony deformities or tenderness. No CVA tenderness. EXTREMITIES: No cyanosis. No clubbing. No edema. No calf tenderness. SKIN: Warm and dry. Normal capillary refill. No rashes. No jaundice. NEUROLOGICAL: Alert, awake, appropriate. Cranial nerves 2-12 intact. No deficits to light touch and temperature in face, upper extremities and lower extremities. No motor deficits in the in face, upper extremities and lower extremities. Normoreflexic in the upper and lower extremities. Normal speech. Toes are down-going bilaterally. Gait is normal without ataxia. PSYCHIATRIC: Cooperative. Good eye contact. Appropriate mood and affect. Vaginal Exam: -cervical os close -cervix not errythematous -no significant discharge. -b/l adnexal tenderness -no vesicles appreciated -pelvic tenderness to palpation <Lorri Vega - Last Filed: 06/20/17 01:38> ED Treatment Course - LABORATORY CBC & Chemistry Diagram: 06/20/17 00:50 06/20/17 00:50 - ADDITIONAL ORDERS Additional order review: Laboratory Results 06/19/17 06/19/17 23:38 23:38 Urine Color Ltyellow Urine Appearance Slcloudy Urine pH 5.0 Ur Specific [place] 1.026 Urine Protein Negative Urine Glucose (UA) Negative Urine Ketones Negative Urine Blood 1+ H Urine Nitrite Negative Urine Bilirubin Negative Urine Urobilinogen Negative Ur Leukocyte Esterase Negative Urine WBC (Auto) <1 Urine RBC (Auto) 1 Ur Epithelial Cells Few Urine Mucus Rare Urine HCG, Qual Negative - RADIOLOGY Radiograph Interpretation: 06/20/17 01:38 Pelvic US Impression: 2.4 cm simple right ovarian cyst without torsion or free fluid. Non- identification of the appendix and therefore appendicitis cannot be excluded. Reported by: Roderick Doyle MD 06/20/17 01:31 EST - Medications Given in the ED: ED Medications Discontinued Medications Generic Name Dose Route Start Last Admin Trade Name Freq PRN Reason Stop Dose Admin Ibuprofen 600 mg 06/19/17 23:29 06/19/17 23:38 Motrin - PO 06/19/17 23:30 600 mg ONCE ONE Administration <Lorri Vega - Last Filed: 06/20/17 01:38> *DC/Admit/Observation/Transfer <Aislinn Bravo - Last Filed: 06/19/17 23:17> - Attestations Scribe Attestion: 06/20/17 00:24 Documentation prepared by Lorri Vega, acting as medical device sales representative for Aislinn Bravo MD. <Lorri Vega - Last Filed: 06/20/17 01:38> - Referrals Referrals: Juan Moy MD [Primary Care Provider] - - Patient Instructions - Post Discharge Activity
[2017-06-19] MEDS ORDERED: IBUPROFEN 600 MG TABLET (FP) PO ONE ×2 (23:29→23:32)
[2017-06-19 23:43] LABS: URINE APPEARANCE SLCLOUDY; URINE BILIRUBIN NEGATIVE (<2.0 mg/dL); URINE BLOOD 1+ (NEGATIVE); URINE COLOR LTYELLOW; URINE GLUCOSE (UA) NEGATIVE (NEGATIVE); URINE KETONE NEGATIVE (NEGATIVE); URINE LEUK ESTERASE NEGATIVE (NEGATIVE); URINE NITRITE NEGATIVE (NEGATIVE); URINE PROTEIN NEGATIVE (NEGATIVE); URINE UROBILINOGEN NEGATIVE mg/dL (0.2-1.0)
[2017-06-19 23:46] LABS: EPI CELLS FEW /HPF (FEW); URINE MUCUS RARE
[2017-06-20 01:02] LABS: BASO % 0.4 % (0-2.0); EOS % 0.8 % (0-4.5); HEMATOCRIT 34.2 % (32.4-45.2); LYMPH % 21.1 % (8-40); MCH 29.8 pg (25.7-33.7); MEAN CELL VOLUME 85.1 fl (80-96); MEAN PLT VOLUME 9.6 fl (7.5-11.1); MONO % 18.3 % (3.8-10.2); NEUT % 59.4 % (42.8-82.8); PLATELET COUNT 177 K/MM3 (134-434); RBC 4.02 M/mm3 (3.60-5.2); RDW 12.8 % (11.6-15.6); WHITE BLOOD COUNT 3.2 K/mm3 (4.0-10.0)
[2017-06-20 01:22] LABS: ALBUMIN 3.8 g/dl (3.4-5.0); ALK PHOS 49 U/L (45-117); ANION GAP 9 (8-16); BILIRUBIN,TOTAL 0.2 mg/dL (0.2-1.0); BLOOD UREA NITROGEN 17 mg/dL (7-18); CALCIUM 8.3 mg/dL (8.5-10.1); CHLORIDE 104 mmol/L (98-107); CO2 27 mmol/L (21-32); CREATININE 0.7 mg/dL (0.55-1.02); GLUCOSE,RANDOM 98 mg/dL (74-106); SGOT/AST 23 U/L (15-37); SGPT/ALT 29 U/L (12-78); SODIUM 140 mmol/L (136-145); TOT PROT 7.6 g/dl (6.4-8.2)
--- NOTE | 2017-06-20 03:20 | PDOC ---
*Physical Exam - Vital Signs Last Vital Signs Temp Pulse Resp BP Pulse Ox 99.5 F 95 H 20 100/70 100 06/19/17 22:45 06/19/17 22:45 06/19/17 22:45 06/19/17 22:45 06/19/17 22:45 ED Treatment Course - LABORATORY CBC & Chemistry Diagram: 06/20/17 00:50 06/20/17 00:50 - ADDITIONAL ORDERS Additional order review: Laboratory Results 06/20/17 06/19/17 06/19/17 00:50 23:38 23:38 Sodium 140 Potassium 4.0 Chloride 104 Carbon Dioxide 27 Anion Gap 9 BUN 17 Creatinine 0.7 Creat Clearance w eGFR > 60 Random Glucose 98 Calcium 8.3 L Total Bilirubin 0.2 AST 23 ALT 29 Alkaline Phosphatase 49 Total Protein 7.6 Albumin 3.8 Urine Color Ltyellow Urine Appearance Slcloudy Urine pH 5.0 Ur Specific [place] 1.026 Urine Protein Negative Urine Glucose (UA) Negative Urine Ketones Negative Urine Blood 1+ H Urine Nitrite Negative Urine Bilirubin Negative Urine Urobilinogen Negative Ur Leukocyte Esterase Negative Urine WBC (Auto) <1 Urine RBC (Auto) 1 Ur Epithelial Cells Few Urine Mucus Rare Urine HCG, Qual Negative 06/20/17 00:50 RBC 4.02 MCV 85.1 MCHC 35.0 RDW 12.8 D MPV 9.6 Neutrophils % 59.4 D Lymphocytes % 21.1 D Monocytes % 18.3 H D Eosinophils % 0.8 Basophils % 0.4 - Medications Given in the ED: ED Medications Discontinued Medications Generic Name Dose Route Start Last Admin Trade Name Arlin PRN Reason Stop Dose Admin Ibuprofen 600 mg 06/19/17 23:29 06/19/17 23:38 Motrin - PO 06/19/17 23:30 600 mg ONCE ONE Administration Oxycodone/Acetaminophen 1 combo 06/20/17 01:40 06/20/17 01:58 Percocet 5/325 - PO 06/20/17 01:41 1 combo ONCE ONE Administration *DC/Admit/Observation/Transfer Diagnosis at time of Disposition: Abdominal pain, Constipation - Discharge Dispostion Disposition: HOME Condition at time of disposition: Stable Admit: No - Referrals Referrals: Juan Moy MD [Primary Care Provider] - - Patient Instructions Printed Discharge Instructions: Increased Dietary Fiber May Improve Constipation Conditions With Pelvic Vamshi, DI for Abdominal Pain-Adult, DI for Constipation - Post Discharge Activity Forms/Work/School Notes: Back to School
== END 2017-06-20 03:41 | disposition home or self-care (01) ==
LOC: JER 22:26
DX: R10.30 Lower abdominal pain, unspecified (principal); K59.00 Constipation, unspecified; O16.5 Unspecified maternal hypertension, complicating the puerperium; N83.201 Unspecified ovarian cyst, right side
CPT/HCPCS: 36415; 74177-TC; 76830-TC; 76856-TC; 80053; 81003; 81015; 84703; 85025; 86618; 87086; 99282-25

== ENCOUNTER 2017-08-02 07:08 | Emergency (ER) | payer BC, OTHER ==
[2017-08-02 07:17] VITALS: BP 99/66; PULSE 65; TEMP 98.1; BMI 23.4
--- NOTE | 2017-08-02 07:26 | PDOC ---
History of Present Illness - General Chief Complaint: Pain Stated Complaint: CRAMPING (6 WEEKS PREGANANT) Time Seen by Provider: 08/02/17 07:23 - History of Present Illness Initial Comments: 08/02/17 07:24 Ms. Bailon is a A5 (3 elective) 27 yo female w/ pmh of HTN and 2 c-sections who presents w/ complaints of pelvic cramping since last night. She reports she just found out she was recently with home test and has not established [employer] care for this yet. She describes her pain as pelvic bilaterally and radiating to both sides. She has had no other symptoms. The patient denies chest pain, shortness of breath, headache and dizziness. Denies fever, chills, nausea, vomit, diarrhea and constipation. Denies dysuria, frequency, urgency and hematuria. Allergies: NKDA Past History - Past Medical History Allergies/Adverse Reactions: Allergies Allergy/AdvReac Type Severity Reaction Status Date / Time No Known Allergies Allergy Verified 08/02/17 07:13 Home Medications: Ambulatory Orders NK [No Known Home Medication] 06/19/17 Anemia: Yes Asthma: No Cancer: No Cardiac Disorders: No CVA: No COPD: No CHF: No DVT: No Dementia: No Diabetes: No GI Disorders: No Disorders: No HTN: Yes Hypercholesterolemia: No Liver Disease: No Psychiatric Problems: Yes (anxeity) Seizures: No Thyroid Disease: No - Surgical History Abdominal Surgery: No Appendectomy: No Cardiac Surgery: No Cholecystectomy: No Lung Surgery: No Neurologic Surgery: No Orthopedic Surgery: No - Reproductive History (#): 6 Para: 1 Cervical CA: No Dysfunctional Uterine Bleeding: No Ectopic : No Endometrial CA: No Polycystic Ovaries: No Therapeutic (s) & number: Yes (2) Tubal Ligation: No Spontaneous : 2 - Immunization History Td Vaccination: No Immunization Up to Date: Yes - Suicide/Smoking/Psychosocial Hx Smoking Status: No Smoking History: Never smoked Years of Tobacco Use: 2 Have you smoked in the past 12 months: No Number of Cigarettes Smoked Daily: 10 If you are a former smoker, when did you quit?: 2016 Information on smoking cessation initiated: No 'Breaking Loose' booklet given: 01/09/16 Hx Alcohol Use: No Drug/Substance Use Hx: No Substance Use Type: None Hx Substance Use Treatment: No Review of Systems - Review of Systems Comments:: 08/02/17 07:26 GENERAL/CONSTITUTIONAL: No fever or chills. No weakness. HEAD, EYES, EARS, NOSE AND THROAT: No change in vision. No ear pain or discharge. No sore throat. CARDIOVASCULAR: No chest pain or shortness of breath RESPIRATORY: No cough, wheezing, or hemoptysis. GASTROINTESTINAL: No nausea, vomiting, diarrhea or constipation. GENITOURINARY: +Bilateral pelvic pain as described. No dysuria, frequency, or change in urination. MUSCULOSKELETAL: No joint or muscle swelling or pain. No neck or back pain. SKIN: No rash NEUROLOGIC: No headache, vertigo, loss of consciousness, or change in strength/ sensation. ENDOCRINE: No increased thirst. No abnormal weight change HEMATOLOGIC/LYMPHATIC: No anemia, easy bleeding, or history of blood clots. ALLERGIC/IMMUNOLOGIC: No hives or skin allergy. *Physical Exam - Vital Signs Last Vital Signs Temp Pulse Resp BP Pulse Ox 98.1 F 65 18 99/66 100 08/02/17 07:15 08/02/17 07:15 08/02/17 07:15 08/02/17 07:15 08/02/17 07:15 - Physical Exam Comments: 08/02/17 07:26 GENERAL: Awake, alert, and fully oriented, in no acute distress HEAD: No signs of trauma, normocephalic, atraumatic EYES: PERRLA, EOMI, sclera anicteric, conjunctiva clear ENT: Auricles normal inspection, hearing grossly normal, nares patent, oropharynx clear without exudates. Moist mucosa NECK: Normal ROM, supple, no lymphadenopathy, JVD, or masses LUNGS: No distress, speaks full sentences, clear to auscultation bilaterally HEART: Regular rate and rhythm, normal S1 and S2, no murmurs, rubs or gallops, peripheral pulses normal and equal bilaterally. ABDOMEN: Soft, nontender, normoactive bowel sounds. No guarding, no rebound. No masses EXTREMITIES: Normal inspection, Normal range of motion, no edema. No clubbing or cyanosis. NEUROLOGICAL: Cranial nerves II through XII grossly intact. Normal speech, normal gait, no focal sensorimotor deficits SKIN: Warm, Dry, normal turgor, no rashes or lesions noted. : No CMT, no adnexal tenderness. No masses or lesions. Os closed. Moderate white thick discharge noted. ED Treatment Course - LABORATORY CBC & Chemistry Diagram: 08/02/17 07:46 08/02/17 07:46 Medical Decision Making - Medical Decision Making 08/02/17 07:53 Ms. Bailon is a 27 yo female w/ pmh as described who presents for evaluation of pelvic cramping in new . Exam revealed vaginal discharge concerning for fungal infection - fluconazole given for empiric treatment. Transvaginal US ordered for evaluation of . 08/02/17 10:58 US significant for 8w1d single live IUP; also noted 0.4 cm hypoechoic structure in embryonic cranium suspicious for cyst vs. dandy-walker complex vs. ventricular dilation. Patient informed and given [employer] referral. Discharging patient to home w/ instructions to f/u with [employer] for further evaluation. Laboratory Results - last 24 hr 08/02/17 08/02/17 08/02/17 07:46 07:46 07:46 WBC 4.5 D RBC 4.06 Hgb 11.7 Hct 34.4 MCV 84.8 MCH 28.8 MCHC 34.0 RDW 13.2 Plt Count 248 D MPV 9.1 Absolute Neuts (auto) 2.8 Neutrophils % 61.7 Lymphocytes % 26.6 D Monocytes % 7.4 Eosinophils % 3.6 D Basophils % 0.7 Nucleated RBC % 0 Sodium 136 Potassium 3.9 Chloride 102 Carbon Dioxide 22 Anion Gap 12 BUN 7 Creatinine 0.7 Creat Clearance w eGFR > 60 Random Glucose 129 H Calcium 8.5 Total Bilirubin 0.2 AST 14 L ALT 19 Alkaline Phosphatase 37 L Total Protein 7.4 Albumin 3.6 Beta HCG, Quant 479484.5 Urine Color Dkyellow Urine Appearance Slcloudy Urine pH 5.0 Ur Specific [place] 1.024 Urine Protein Negative Urine Glucose (UA) Negative Urine Ketones Negative Urine Blood Negative Urine Nitrite Negative Urine Bilirubin Negative Urine Urobilinogen Negative Ur Leukocyte Esterase Negative *DC/Admit/Observation/Transfer Diagnosis at time of Disposition: Qualifiers: Weeks of gestation: 8 weeks Qualified Code(s): Z3A.08 - 8 weeks gestation of - Discharge Dispostion Disposition: HOME - Referrals Referrals: Juan Moy MD [Primary Care Provider] - Tena Mckeon MD [Staff Physician] - - Patient Instructions Printed Discharge Instructions: DI for -- Discomforts and Remedies Additional Instructions: Please follow-up with [employer] as discussed. Return to ER if any increase in pain , fever, chills, or other concerning symptoms. - Post Discharge Activity Forms/Work/School Notes: Back to Work
--- NOTE | 2017-08-02 07:38 | PDOC ---
Attending Attestation - Resident Resident Name: Jelani Garcia - ED Attending Attestation I have performed the following: I have examined & evaluated the patient, The case was reviewed & discussed with the resident, I agree w/resident's findings & plan, Exceptions are as noted - HPI HPI: 08/02/17 07:41 27y F pmhx gestational htn, presents unclear LMP, A5 with pelvic cramping x 1 day + test at home. LMP was mid may but pt notes she has had a few episodes of spotting. pt denies any fever/chills, n/v, diarrhea, dysuria. on exam pt is well appearing in no distress abd soft nontender no cva tenderness will check bhcg, basic labs will obtain tvus if
[2017-08-02] MEDS ORDERED: FLUCONAZOLE 150 MG TABLET PO ONE (07:51)
[2017-08-02] MEDS ORDERED: FLUCONAZOLE 100 MG TABLET (UD) ONE (07:55)
[2017-08-02 08:44] LABS: BASO % 0.7 % (0-2.0); EOS % 3.6 % (0-4.5); HEMATOCRIT 34.4 % (32.4-45.2); HEMOGLOBIN 11.7 GM/dL (10.7-15.3); LYMPH % 26.6 % (8-40); MCH 28.8 pg (25.7-33.7); MEAN CELL VOLUME 84.8 fl (80-96); MEAN PLT VOLUME 9.1 fl (7.5-11.1); MONO % 7.4 % (3.8-10.2); NEUT % 61.7 % (42.8-82.8); PLATELET COUNT 248 K/MM3 (134-434); RBC 4.06 M/mm3 (3.60-5.2); RDW 13.2 % (11.6-15.6); WHITE BLOOD COUNT 4.5 K/mm3 (4.0-10.0)
[2017-08-02 08:48] LABS: ALBUMIN 3.6 g/dl (3.4-5.0); ANION GAP 12 (8-16); BLOOD UREA NITROGEN 7 mg/dL (7-18); CALCIUM 8.5 mg/dL (8.5-10.1); CHLORIDE 102 mmol/L (98-107); CO2 22 mmol/L (21-32); CREATININE 0.7 mg/dL (0.55-1.02); GLUCOSE,RANDOM 129 mg/dL (74-106); POTASSIUM 3.9 mmol/L (3.5-5.1); SGOT/AST 14 U/L (15-37); SGPT/ALT 19 U/L (12-78); SODIUM 136 mmol/L (136-145)
[2017-08-02 09:06] LABS: ALK PHOS 37 U/L (45-117); BILIRUBIN,TOTAL 0.2 mg/dL (0.2-1.0); TOT PROT 7.4 g/dl (6.4-8.2)
[2017-08-02 09:08] LABS: URINE APPEARANCE SLCLOUDY; URINE BILIRUBIN NEGATIVE (<2.0 mg/dL); URINE BLOOD NEGATIVE (NEGATIVE); URINE COLOR DKYELLOW; URINE GLUCOSE (UA) NEGATIVE (NEGATIVE); URINE KETONE NEGATIVE (NEGATIVE); URINE LEUK ESTERASE NEGATIVE (NEGATIVE); URINE NITRITE NEGATIVE (NEGATIVE); URINE PROTEIN NEGATIVE (NEGATIVE); URINE UROBILINOGEN NEGATIVE mg/dL (0.2-1.0)
== END 2017-08-02 11:13 | disposition home or self-care (01) ==
LOC: JER 07:08
DX: O26.891 Other specified pregnancy related conditions, first trimester (principal); R10.2 Pelvic and perineal pain; O13.5 Gestational [pregnancy-induced] hypertension without significant proteinuria, complicating the puerperium; Z3A.01 Less than 8 weeks gestation of pregnancy
CPT/HCPCS: 36415; 76817-TC; 80053; 81003; 84702; 85025; 87086; 99282-25

== ENCOUNTER 2018-08-16 07:09 | Day surgery (SDC) | payer BC, OTHER ==
[2018-08-09 14:21] VITALS: BMI 25.4
[~2018-08-16 07:09] MED LIST: BUPIVACAINE HCL/PF 0.25% (2.5MG/ML) 10 ML VIAL IJ ONE; LIDO 2%/EPI 1:200000 PRESRVFRE (20 ML SDVIAL) PNB ONE; ceFAZolin SODIUM 1 GM VIAL IVPB ONE
[2018-08-16] MEDS ORDERED: MIDAZOLAM HCL 2 MG/2 ML SINGLE DOSE VIAL ONE (08:25)
[2018-08-16] MEDS ORDERED: ceFAZolin SODIUM 1 GM VIAL ONE (08:26)
[2018-08-16] MEDS ORDERED: BUPIVACAINE HCL/PF 2.5 MG/ML - 30 ML VIAL IJ ONE (08:59)
[2018-08-16] MEDS ORDERED: LIDOCAINE 1% P/F 10 MG/ML VIAL ONE (08:59)
[2018-08-16] MEDS ORDERED: ceFAZolin SODIUM 1 GM VIAL IVPB ONE (09:00)
[2018-08-16] MEDS ORDERED: LIDOCAINE HCL 1% PRESERVATIVE FREE - 30ML VIAL ONE (09:00)
[2018-08-16] MEDS ORDERED: BUPIVACAINE HCL/PF 0.25% (2.5MG/ML) 10 ML VIAL IJ ONE ×2 (09:29)
[2018-08-16] MEDS ORDERED: LIDO 2%/EPI 1:200000 PRESRVFRE (20 ML SDVIAL) PNB ONE ×2 (09:29)
[2018-08-16 10:01] VITALS: TEMP 97.7
[2018-08-16 10:51] VITALS: BP 119/67; PULSE 87
[2018-08-16] MEDS ORDERED: ONDANSETRON 4 MG/2 ML VIAL IVPUSH PRN (14:11)
[2018-08-16] MEDS ORDERED: oxyCODONE HCL 5 MG TABLET PO PRN ×2 (14:11)
[2018-08-16] MEDS ORDERED: LACTATED RINGERS SOLUTION 1,000 ML IV SCH (14:15)
--- NOTE | 2018-08-17 08:55 | OP ---
DATE OF OPERATION: 08/16/2018 SURGEON: Rosalia Rudolph MD ASSISSTANT: DALIA Jacobson PREOPERATIVE DIAGNOSIS: Right carpal tunnel syndrome. POSTOPERATIVE DIAGNOSIS: Right carpal tunnel syndrome. PROCEDURE: Right carpal tunnel release. FINDINGS: transcarpal ligament impinging upon the median nerve. DESCRIPTION OF PROCEDURE: Under sterile conditions, the upper extremity was prepped and draped in a sterile fashion. Incision was made along the longitudinal portion of the carpal tunnel. A longitudinal incision was made along the proximal portion of the palm, following the palm crease. This was taken down to the transcarpal ligament, which was released initially with scalpel and then extended proximally and distally using blunt tenotomy scissors. The median nerve was identified and completely released from impingement by the transcarpal ligament. The wound was then irrigated with copious amounts of irrigation. Skin was closed with 5-0 nylon in single interrupted sutures. The PA listed above was present and assisted at surgery. Their presence was absolutely medically necessary for the completion of the procedure. They helped hold the arthroscopy, pass instruments (and implants when indicated) and the procedure could not have been completed without their assistance. ROSALIA RUDOLPH M.D. [id number]
== END 2018-08-16 10:40 | disposition home or self-care (01) ==
LOC: FASU 07:09
PROVIDERS: ATTEND Orthopaedic Surgery
PROC: 01N50ZZ Release Median Nerve, Open Approach (ICD-10-PCS; principal; 2018-08-16 08:30)
DX: G56.01 Carpal tunnel syndrome, right upper limb (principal)
CPT/HCPCS: 84703

== ENCOUNTER 2020-01-17 19:09 | Emergency (ER) | payer OTHER ==
[2020-01-17 19:52] VITALS: BP 116/82; PULSE 74; TEMP 98.4; BMI 29.9
[2020-01-17 20:24] LABS: PH,URINE 6.5 (5.0-8.0); URINE APPEARANCE CLEAR; URINE BILIRUBIN NEGATIVE (NEGATIVE); URINE COLOR YELLOW; URINE GLUCOSE (UA) NEGATIVE (NEGATIVE); URINE KETONE NEGATIVE (NEGATIVE); URINE LEUK ESTERASE NEGATIVE (NEGATIVE); URINE NITRITE NEGATIVE (NEGATIVE); URINE PROTEIN NEGATIVE (NEGATIVE)
== END 2020-01-17 21:13 | disposition home or self-care (01) ==
LOC: JER 19:09
DX: B34.9 Viral infection, unspecified (principal)
CPT/HCPCS: 81003; 99283-25; C9803; U0003

== ENCOUNTER → 2020-08-11 | Day surgery (SDC) | payer OTHER | END | disposition home or self-care (01) | LOC: JRADIR 09:35 | PROVIDERS: ATTEND Internal Medicine | PROC: 0G9H3ZX Drainage of Right Thyroid Gland Lobe, Percutaneous Approach, Diagnostic (ICD-10-PCS; principal; 2020-08-11) | DX: E04.1 Nontoxic single thyroid nodule (principal) | CPT/HCPCS: 10005; 76942; 88173; 88305-TC ==

== ENCOUNTER 2020-12-13 22:15 | Emergency (ER) | payer OTHER ==
[2020-12-13 22:25] VITALS: BP 110/74; PULSE 63; TEMP 97.8; BMI 30.2
[2020-12-13] MEDS ORDERED: ALBUTEROL SO4 HFA INHALER IH ONE ×2 (23:08→23:11)
[2020-12-13] MEDS ORDERED: ACETAMINOPHEN 500 MG TABLET (FP) PO ONE (23:10)
[2020-12-13] MEDS ORDERED: ACETAMINOPHEN 500 MG TABLET (FP) ONE (23:11)
== END 2020-12-13 23:53 | disposition home or self-care (01) ==
LOC: JERFT 22:15 → JER 22:15 → JERFT 23:53
DX: J20.9 Acute bronchitis, unspecified (principal)
CPT/HCPCS: 71046-TC-FY; 93005; 93010; 99284-25

== ENCOUNTER 2021-01-29 23:35 | Emergency (ER) | payer OTHER ==
[2021-01-29 23:45] VITALS: BP 122/73; PULSE 73; TEMP 97.5; BMI 31.3
[2021-01-30 01:28] LABS: URINE APPEARANCE Error; URINE BILIRUBIN NEGATIVE (NEGATIVE); URINE COLOR YELLOW; URINE GLUCOSE (UA) NEGATIVE (NEGATIVE); URINE KETONE NEGATIVE (NEGATIVE); URINE LEUK ESTERASE NEGATIVE (NEGATIVE); URINE NITRITE NEGATIVE (NEGATIVE); URINE PROTEIN NEGATIVE (NEGATIVE)
[2021-01-30 01:33] LABS: HCG,QUALITATIVE URINE Negative
[2021-01-30] MEDS ORDERED: IBUPROFEN 600 MG TABLET (FP) PO ONE ×2 (02:40→02:49)
== END 2021-01-30 03:27 | disposition home or self-care (01) ==
LOC: JER 23:35
DX: M79.10 Myalgia, unspecified site (principal); R09.3 Abnormal sputum; Z11.52 Encounter for screening for COVID-19
CPT/HCPCS: 81003; 84703; 87086; 87651; 87804; 99283-25; C9803; U0003; U0005

== ENCOUNTER 2021-02-22 17:27 | Emergency (ER) | payer OTHER ==
[2021-02-22 17:37] VITALS: BP 126/78; PULSE 69; TEMP 98; BMI 30.2
[2021-02-22] MEDS ORDERED: ACETAMINOPHEN 500 MG TABLET (FP) PO ONE (18:13)
[2021-02-22] MEDS ORDERED: ACETAMINOPHEN 500 MG TABLET (FP) ONE (18:14)
[2021-02-23 23:06] LABS: SARS-CoV-2 NAA Not Detected (Not Detected)
== END 2021-02-22 18:32 | disposition home or self-care (01) ==
LOC: JERFT 17:27
DX: J06.9 Acute upper respiratory infection, unspecified (principal); R05.9 Cough, unspecified
CPT/HCPCS: 87804; 99283-25; C9803; U0003; U0005

== ENCOUNTER 2021-09-01 11:06 | Inpatient (IN) | payer OTHER ==
[2021-09-01] MEDS ORDERED: LACTATED RINGERS SOLUTION 1000 ML INFUS.BAG IV ONE (12:17)
[2021-09-01] MEDS ORDERED: ACETAMINOPHEN 1000 MG/100 ML BAG IVPB ONE (12:17)
[2021-09-01] MEDS ORDERED: ACETAMINOPHEN INJECTION 100 ML IVPB ONE (13:00)
[2021-09-01 13:27] LABS: BASO % 0.4 % (0-2.0); EOS % 1.9 % (0-4.5); HEMATOCRIT 38.2 % (32.4-45.2); HEMOGLOBIN 13.2 GM/dL (10.7-15.3); LYMPH % 31.2 % (8-40); MCH 29.2 pg (25.7-33.7); MCHC 34.5 g/dl (32.0-36.0); MEAN CELL VOLUME 84.6 fl (80-96); MEAN PLT VOLUME 10.2 fl (7.5-11.1); MONO % 6.4 % (3.8-10.2); NEUT % 60.1 % (42.8-82.8); PLATELET COUNT 187 10^3/uL (134-434); RBC 4.52 M/mm3 (3.60-5.2); RDW 13.4 % (11.6-15.6)
[2021-09-01 13:34] LABS: INR 1.05 (0.83-1.09); PROTHROMBIN TIME (PATIENT) 12.1 SEC (9.7-13.0)
[2021-09-01 13:37] LABS: ACTIVATED PTT 32.7 SECONDS (25.2-36.5)
[2021-09-01 13:47] LABS: CHLORIDE 106 mmol/L (98-107); SODIUM 138 mmol/L (136-145)
[2021-09-01 13:48] LABS: ANION GAP 7 MMOL/L (8-16); BLOOD UREA NITROGEN 9.8 mg/dL (7-18); CALCIUM 9.3 mg/dL (8.5-10.1); CO2 24 mmol/L (21-32); GLUCOSE,RANDOM 97 mg/dL (74-106); LIPASE 131 U/L (73-393); MAGNESIUM 2.2 mg/dL (1.8-2.4)
[2021-09-01 13:49] LABS: ALBUMIN 4.4 g/dl (3.4-5.0)
[2021-09-01 13:51] LABS: CREATININE 0.6 mg/dL (0.55-1.3); SGOT/AST 20 U/L (15-37)
[2021-09-01 13:53] LABS: BILIRUBIN,TOTAL 0.5 mg/dL (0.2-1); TOT PROT 8.1 g/dl (6.4-8.2)
[2021-09-01 13:54] LABS: ALK PHOS 41 U/L (45-117)
[2021-09-01 14:01] LABS: SGPT/ALT 23 U/L (13-61)
[2021-09-01] MEDS ORDERED: morphine CARPU-JECT 2 MG/1 ML DISP.SYRIN IVPUSH ONE ×2 (15:53→18:03)
[2021-09-01] MEDS ORDERED: CEFTRIAXONE 1,000 MG in DEXTROSE 5%-WATER - 50 ML IVPB ONE (18:51)
[2021-09-01] MEDS ORDERED: SODIUM CHLORIDE 0.9% 500 ML INFUS.BAG IV ONE (18:53)
[2021-09-01 19:02] LABS: PH,URINE 6.5 (5.0-8.0); URINE APPEARANCE CLEAR; URINE BILIRUBIN NEGATIVE (NEGATIVE); URINE COLOR YELLOW; URINE GLUCOSE (UA) NEGATIVE (NEGATIVE); URINE KETONE 15 mg/dl (NEGATIVE); URINE NITRITE NEGATIVE (NEGATIVE); URINE PROTEIN NEGATIVE (NEGATIVE); URINE UROBILINOGEN 0.2 mg/dL (0.2-1.0)
[2021-09-01 19:03] LABS: URINE LEUK ESTERASE NEGATIVE (NEGATIVE)
[2021-09-01] MEDS ORDERED: CEFTRIAXONE 1 GM/50 ML BAG ONE (20:41)
[2021-09-01] MEDS ORDERED: ONDANSETRON 4 MG/2 ML VIAL IVPB PRN (20:45)
[2021-09-01] MEDS ORDERED: ACETAMINOPHEN 1000 MG/100 ML BAG IVPB PRN (20:53)
[2021-09-01] MEDS ORDERED: KETOROLAC TROMETHAMINE 15 MG/ML VIAL ONE (22:53)
[2021-09-01] MEDS: KETOROLAC TROMETHAMINE 15 MG/ML VIAL IVPUSH PRN (22:59)
[2021-09-01] MEDS: SODIUM CHLORIDE 1,000 ML IV SCH (23:04)
[2021-09-02] MEDS ORDERED: MELATONIN 5 MG TABLETS PO PRN ×2 (00:50→16:23)
[2021-09-02] MEDS ORDERED: LORazepam 2 MG/ML SDV VIAL IVPUSH ONE (00:55)
[2021-09-02] MEDS ORDERED: SODIUM CHLORIDE 0.9% 500 ML INFUS.BAG IV ONE (01:19)
[2021-09-02 02:54] VITALS: BMI 26.2
[2021-09-02] MEDS ORDERED: morphine CARPU-JECT 2 MG/1 ML DISP.SYRIN IM PRN (09:20)
[2021-09-02] MEDS ORDERED: CEFTRIAXONE 1 GM in DEXTROSE 5%-WATER - 50 ML IVPB SCH (10:00)
[2021-09-02] MEDS ORDERED: DEXTROSE 5%-WATER - 50 ML IVPB ONE (10:13)
[2021-09-02] MEDS ORDERED: cefTRIAXone SODIUM 1 GM VIAL ONE (10:13)
[2021-09-02 10:52] LABS: BASO % 0.7 % (0-2.0); EOS % 4.2 % (0-4.5); HEMATOCRIT 34.7 % (32.4-45.2); HEMOGLOBIN 11.7 GM/dL (10.7-15.3); LYMPH % 32.3 % (8-40); MCH 28.8 pg (25.7-33.7); MCHC 33.8 g/dl (32.0-36.0); MEAN CELL VOLUME 85.3 fl (80-96); MEAN PLT VOLUME 10.7 fl (7.5-11.1); MONO % 7.4 % (3.8-10.2); NEUT % 55.4 % (42.8-82.8); PLATELET COUNT 160 10^3/uL (134-434); RBC 4.07 M/mm3 (3.60-5.2); RDW 13.2 % (11.6-15.6); WHITE BLOOD COUNT 3.6 K/mm3 (4.0-10.0)
[2021-09-02 11:02] LABS: INR 1.19 (0.83-1.09); PROTHROMBIN TIME (PATIENT) 13.7 SEC (9.7-13.0)
[2021-09-02 11:03] LABS: ACTIVATED PTT 32.2 SECONDS (25.2-36.5)
[2021-09-02 11:33] LABS: BILIRUBIN,TOTAL 0.6 mg/dL (0.2-1); CREATININE 0.6 mg/dL (0.55-1.3); MAGNESIUM 1.9 mg/dL (1.8-2.4); TOT PROT 6.3 g/dl (6.4-8.2)
[2021-09-02] MEDS ORDERED: BUPIVACAINE HCL/PF 0.25% (2.5MG/ML) 10 ML VIAL ONE (11:34)
[2021-09-02 11:35] LABS: ALBUMIN 3.5 g/dl (3.4-5.0); BLOOD UREA NITROGEN 8.1 mg/dL (7-18)
[2021-09-02 11:36] LABS: CALCIUM 8.3 mg/dL (8.5-10.1)
[2021-09-02] MEDS: SODIUM CHLORIDE 1,000 ML IV SCH (12:05)
[2021-09-02] MEDS: KETOROLAC TROMETHAMINE 15 MG/ML VIAL IVPUSH PRN (12:06)
[2021-09-02] MEDS ORDERED: LIDOCAINE HCL 2% 100 MG/5 ML DISP.SYRIN ONE (14:15)
[2021-09-02] MEDS ORDERED: SUCCINYLCHOLINE CHLORIDE 200 MG/10 ML SYRINGE ONE (14:15)
[2021-09-02] MEDS ORDERED: PROPOFOL 20 ML ONE (14:15)
[2021-09-02] MEDS ORDERED: ROCURONIUM BROMIDE 50 MG/5 ML SYRINGE ONE (14:15)
[2021-09-02] MEDS ORDERED: MIDAZOLAM HCL 2 MG/2 ML SINGLE DOSE VIAL ONE (14:15)
[2021-09-02] MEDS ORDERED: DEXAMETHASONE SOD PHOSPHATE 4 MG/1 ML VIAL ONE ×2 (14:48→14:49)
[2021-09-02] MEDS ORDERED: KETOROLAC TROMETHAMINE 30 MG/1 ML VIAL ONE (14:49)
[2021-09-02] MEDS ORDERED: NEOSTIGMINE METHYLSULFATE 0.5 MG/ML - 10 ML MDV ONE (15:29)
[2021-09-02] MEDS ORDERED: GLYCOPYRROLATE 0.2 MG/1 ML VIAL ONE (15:29)
[2021-09-02] MEDS ORDERED: BUPIVACAINE HCL/PF 0.25% (2.5MG/ML) 10 ML VIAL IJ ONE (15:46)
[2021-09-02] MEDS ORDERED: ONDANSETRON 4 MG/2 ML VIAL IVPUSH PRN (16:10)
[2021-09-02] MEDS ORDERED: LACTATED RINGERS SOLUTION 1,000 ML IV SCH (16:15)
[2021-09-02] MEDS ORDERED: ONDANSETRON 4 MG/2 ML VIAL IVPB PRN (16:23)
[2021-09-02] MEDS ORDERED: FENTANYL CITRATE/PF 50 MCG/ML VIAL ONE ×2 (16:26→16:57)
[2021-09-02] MEDS ORDERED: ONDANSETRON 4 MG/2 ML VIAL ONE (17:18)
[2021-09-02] MEDS: IBUPROFEN 600 MG TABLET (FP) PO SCH (18:03)
[2021-09-02] MEDS ORDERED: oxyCODONE HCL 5 MG TABLET PO PRN (21:33)
[2021-09-02] MEDS: ACETAMINOPHEN 500 MG TABLET (FP) PO SCH (22:45)
[2021-09-02] MEDS: oxyCODONE HCL 5 MG TABLET PO PRN (23:52)
[2021-09-03] MEDS ORDERED: CEFTRIAXONE 1,000 MG in DEXTROSE 5%-WATER - 50 ML IVPB SCH (02:59)
[2021-09-03] MEDS ORDERED: AZITHROMYCIN 250 MG TABLET PO ONE (03:00)
[2021-09-03] MEDS: ACETAMINOPHEN 500 MG TABLET (FP) PO SCH ×2 (03:48→09:30)
[2021-09-03] MEDS: oxyCODONE HCL 5 MG TABLET PO PRN (05:24)
[2021-09-03] MEDS ORDERED: CEFTRIAXONE 1 GM in DEXTROSE 5%-WATER - 50 ML IVPB SCH (05:34)
[2021-09-03] MEDS ORDERED: cefTRIAXone SODIUM 1 GM VIAL ONE ×2 (05:35→09:07)
[2021-09-03] MEDS ORDERED: DEXTROSE 5%-WATER - 50 ML IVPB ONE ×2 (05:35→09:07)
[2021-09-03] MEDS: IBUPROFEN 600 MG TABLET (FP) PO SCH ×3 (06:27→11:54)
[2021-09-03 10:09] LABS: BASO % 0.1 % (0-2.0); EOS % 0.1 % (0-4.5); HEMATOCRIT 32.2 % (32.4-45.2); HEMOGLOBIN 11.2 GM/dL (10.7-15.3); LYMPH % 16.7 % (8-40); MCH 29.5 pg (25.7-33.7); MCHC 34.9 g/dl (32.0-36.0); MEAN CELL VOLUME 84.4 fl (80-96); MEAN PLT VOLUME 10.7 fl (7.5-11.1); MONO % 6.3 % (3.8-10.2); NEUT % 76.8 % (42.8-82.8); PLATELET COUNT 160 10^3/uL (134-434); RBC 3.81 M/mm3 (3.60-5.2); WHITE BLOOD COUNT 7.9 K/mm3 (4.0-10.0)
[2021-09-03 10:53] LABS: CALCIUM 8.6 mg/dL (8.5-10.1)
[2021-09-03 10:54] LABS: ALBUMIN 3.4 g/dl (3.4-5.0); BLOOD UREA NITROGEN 4.8 mg/dL (7-18); MAGNESIUM 1.8 mg/dL (1.8-2.4)
[2021-09-03 10:57] LABS: CREATININE 0.7 mg/dL (0.55-1.3)
[2021-09-03 10:59] LABS: BILIRUBIN,TOTAL 0.5 mg/dL (0.2-1); TOT PROT 6.1 g/dl (6.4-8.2)
[2021-09-03] MEDS ORDERED: POTASSIUM CHLORIDE TABS 20 MEQ TABLET.ER (FP) PO ONE (11:45)
[2021-09-03] MEDS ORDERED: ALPRAZolam 0.25 MG TABLET PO ONE (13:05)
[2021-09-03 13:58] VITALS: BP 99/63; PULSE 59; TEMP 98.1
[2021-09-04] MEDS ORDERED: AZITHROMYCIN 250 MG TABLET PO SCH (10:00)
== END 2021-09-03 15:03 | disposition home or self-care (01) | DRG 263 ==
LOC: JER 11:06 → JASUSAT 19:19 → OBSVTOIN 19:19 → UNDOADMOB 19:19 → JERBED 19:19 → INTOOBSV 19:19 → JERBED 23:44 → J5S 23:44 → JASUSAT 09-03 12:15 → J5S 09-03 12:15
PROVIDERS: ADMIT Internal Medicine; ATTEND Nurse Practitioner Family
PROC: 0FT44ZZ Resection of Gallbladder, Percutaneous Endoscopic Approach (ICD-10-PCS; principal; 2021-09-03)
DX: K80.00 Calculus of gallbladder with acute cholecystitis without obstruction (principal); F41.9 Anxiety disorder, unspecified; D64.9 Anemia, unspecified; R05.9 Cough, unspecified
CPT/HCPCS: 36415; 71045-TC-FY; 74177-TC; 76705-TC; 80053; 81003; 83690; 83735; 84100; 84702; 85025; 85610; 85730; 86850; 86900; 86901; 87086; 88304-TC; 93005; 93010; 94760; 99285-25; C9803-CS; Q9967; U0003; U0005

== ENCOUNTER 2022-05-29 12:49 | Emergency (ER) | payer OTHER ==
[2022-05-29] MEDS ORDERED: ONDANSETRON 4 MG/2 ML VIAL IVPUSH ONE (13:13)
[2022-05-29] MEDS ORDERED: SODIUM CHLORIDE 0.9% 1000 ML INFUS.BAG IV ONE (13:13)
[2022-05-29] MEDS ORDERED: FAMOTIDINE 20 MG/50 ML IVPB 20 MG/50 ML MG IVPB ONE ×2 (13:13→13:32)
[2022-05-29] MEDS ORDERED: ACETAMINOPHEN 1000 MG/100 ML BAG IVPB ONE (13:13)
[2022-05-29 13:14] VITALS: TEMP 97.6; BMI 21.7
[2022-05-29] MEDS ORDERED: ACETAMINOPHEN INJECTION 100 ML IVPB ONE (13:31)
[2022-05-29] MEDS ORDERED: ONDANSETRON 4 MG/2 ML VIAL ONE (13:32)
[2022-05-29] MEDS ORDERED: morphine CARPU-JECT 4 MG/1 ML DISP.SYRIN IVPUSH ONE (14:07)
[2022-05-29] MEDS ORDERED: HYDROmorphone HCl 2 MG/ML VIAL IVPUSH ONE (14:14)
[2022-05-29 14:24] LABS: BASO % 0.2 % (0-2.0); EOS % 0.2 % (0-4.5); HEMATOCRIT 42.6 % (32.4-45.2); HEMOGLOBIN 14.4 GM/dL (10.7-15.3); LYMPH % 8.1 % (8-40); MCH 29.2 pg (25.7-33.7); MCHC 33.9 g/dl (32.0-36.0); MEAN CELL VOLUME 86.2 fl (80-96); MEAN PLT VOLUME 10.2 fl (7.5-11.1); MONO % 2.6 % (3.8-10.2); NEUT % 88.9 % (42.8-82.8); PLATELET COUNT 225 10^3/uL (134-434); RBC 4.94 M/mm3 (3.60-5.2); RDW 13.5 % (11.6-15.6)
[2022-05-29 14:37] LABS: CALCIUM 9.5 mg/dL (8.5-10.1)
[2022-05-29 14:38] LABS: ALBUMIN 4.5 g/dl (3.4-5.0); BLOOD UREA NITROGEN 15.8 mg/dL (7-18)
[2022-05-29 14:41] LABS: CREATININE 0.7 mg/dL (0.55-1.3)
[2022-05-29 14:42] LABS: TOT PROT 8.7 g/dl (6.4-8.2)
[2022-05-29 14:45] LABS: BILIRUBIN,TOTAL 0.5 mg/dL (0.2-1)
[2022-05-29] MEDS ORDERED: HYDROmorphone HCl 2 MG/ML VIAL ONE (14:50)
[2022-05-29] MEDS ORDERED: HALOPERIDOL LACTATE 5 MG/ML IM ONE ×2 (15:25→15:26)
[2022-05-29 20:18] LABS: URINE APPEARANCE CLEAR; URINE COLOR YELLOW
[2022-05-29 20:19] LABS: EPI CELLS 34.4 /uL (0-25.1); HYALINE CASTS 6.28 /uL (0-3.1); PH,URINE 5.5 (5.0-8.0); URINE BACTERIA 276.9 /uL (0-1359); URINE BILIRUBIN NEGATIVE (NEGATIVE); URINE GLUCOSE (UA) NEGATIVE (NEGATIVE); URINE KETONE 40 mg/dl (NEGATIVE); URINE LEUK ESTERASE NEGATIVE (NEGATIVE); URINE NITRITE NEGATIVE (NEGATIVE); URINE PROTEIN 30 (NEGATIVE); URINE RBC 24.6 /uL (0-23.9); URINE UROBILINOGEN 0.2 mg/dL (0.2-1.0); URINE WBC 7.1 /uL (0-25.8)
[2022-05-29 20:29] VITALS: BP 109/58; PULSE 65; RESP 18
== END 2022-05-29 20:46 | disposition home or self-care (01) ==
LOC: JER 12:49
PROC: 3E033GC Introduction of Other Therapeutic Substance into Peripheral Vein, Percutaneous Approach (ICD-10-PCS; principal; 2022-05-29)
PROC: 3E033NZ Introduction of Analgesics, Hypnotics, Sedatives into Peripheral Vein, Percutaneous Approach (ICD-10-PCS; 2022-05-29)
PROC: 3E033GC Introduction of Other Therapeutic Substance into Peripheral Vein, Percutaneous Approach (ICD-10-PCS; 2022-05-29)
PROC: 3E033NZ Introduction of Analgesics, Hypnotics, Sedatives into Peripheral Vein, Percutaneous Approach (ICD-10-PCS; 2022-05-29)
PROC: 3E023GC Introduction of Other Therapeutic Substance into Muscle, Percutaneous Approach (ICD-10-PCS; 2022-05-29)
DX: R10.30 Lower abdominal pain, unspecified (principal); R11.2 Nausea with vomiting, unspecified; R19.7 Diarrhea, unspecified; R53.1 Weakness; Z20.822 Contact with and (suspected) exposure to COVID-19
CPT/HCPCS: 0241U-QW; 36415; 74177-TC; 80053; 81003; 82962; 83690; 84484; 84703; 85025; 87086; 93005; 93010; 96365; 96372; 96375; 99285-25; Q9967